=== PATIENT | male | born 1960 | race American Indian/Alaskan Native ===

== ENCOUNTER 2016-08-16 14:00 | Inpatient (IN) | payer OTHER ==
[2016-08-16] MEDS ORDERED: ASPIRIN ONE (16:15)
[2016-08-16] MEDS ORDERED: NACL 0.9% 500 ML 500 ML ONE (16:15)
[2016-08-16] MEDS ORDERED: BABY ASPIRIN ONE (16:16)
[2016-08-16] MEDS ORDERED: HEPARIN 10,000 UNITS/10 ML ONE ×2 (16:18→16:22)
[2016-08-16] MEDS ORDERED: ANGIOMAX IV ONE (16:18)
[2016-08-16] MEDS ORDERED: XYLOCAINE 2% INFILTRATI ONE (16:18)
[2016-08-16] MEDS ORDERED: VERSED ONE (16:18)
[2016-08-16] MEDS ORDERED: WATER FOR INJ (PF) 0 ML ONE (16:18)
[2016-08-16] MEDS ORDERED: SUBLIMAZE ONE (16:18)
[2016-08-16] MEDS ORDERED: NITROGLYCERIN SYRINGE 3 ML ONE (16:19)
[2016-08-16] MEDS ORDERED: CALAN ONE (16:19)
[2016-08-16] MEDS ORDERED: NACL 0.9% 100 ML ONE (16:20)
[2016-08-16] MEDS ORDERED: BABY ASPIRIN PO ONE (16:20)
[2016-08-16] MEDS: HEPARIN/NS 5000 UNIT/500ML(CATH LAB) 1,000 ML IR ONE ×2 (16:20→16:45)
--- NOTE | 2016-08-16 16:26 | Emergency Department Report ---
HPI - General Chief Complaint: Altered Mental Status Time Seen by Provider: 08/16/16 16:13 - HPI HPI: 55-year-old Afro-[place]ian male presents to the emergency Department through triage with complaint of altered mental status. One of the people that brought him into the hospital says that she has a roommate and/or lives in the same house that he lives in. She says that the patient has a history of alcohol abuse and drinks every day in between going to and from work. She also says that he had one history of collapsing about 1 month ago. The patient has some paperwork showing that he has seen some hard cardiology, Dr. Flor, and his primary care doctor is Dr. Akers. He has a history of hypertension listed. Patient currently is a poor historian and AAO 1. ED Past Medical Hx - Past Medical History Previous Medical History?: Yes Hx Hypertension: Yes Additional medical history: asthenia, SOB - Surgical History Additional Surgical History: unknown - Social History Smoking Status: Unknown if ever smoked Substance Use Type: Other ED Review of Systems ROS: Stated complaint: BODY PAIN/SHAKING Other details as noted in HPI Comment: Unobtainable due to pts medical conditions Physical Exam - Physical Exam Vital Signs: Vital Signs 08/16/16 16:01 Temperature 98.8 F Pulse Rate 133 H Respiratory 24 Rate Blood Pressure 117/83 O2 Sat by Pulse 100 Oximetry Physical Exam: GENERAL: The patient is well-developed well-nourished. HEENT: Normocephalic. Atraumatic. Extraocular motions are intact. Patient has moist mucous membranes. Pupils equal reactive to light bilaterally. NECK: Supple. Trachea is midline. CHEST/LUNGS: Clear to auscultation. There is no respiratory distress noted. HEART/CARDIOVASCULAR: Regular. There is moderate tachycardia. There is no gallop rub or murmur. ABDOMEN: Abdomen is soft, nontender. Patient has normal bowel sounds. There is no abdominal distention. SKIN: Skin is warm and dry. NEURO: Patient is awake but confused. AAO times one to person, but not time or place. Patient answers some yes or no questions. Follows a few commands. Withdraws from painful stimuli. MUSCULOSKELETAL: There is no tenderness or deformity. There is no evidence of acute injury. ED Course Vital Signs 08/16/16 16:01 Temperature 98.8 F Pulse Rate 133 H Respiratory 24 Rate Blood Pressure 117/83 O2 Sat by Pulse 100 Oximetry - Consultations Consultation #1: I spoke with the salesperson art objects on-call for [facility], Dr. Montgomery, who is reviewing the EKG and says he will call back with further instructions or disposition and/or decision on cathodic protection technician intervention. 08/16/16 16:23 Consultation #2: Cardiology has decided to take the patient to the Furniture Assembly Supervisor for further evaluation and possible intervention. They request 5000 units of heparin IV 1. 08/16/16 16:30 ED Medical Decision Making - Lab Data Result diagrams: 08/16/16 16:26 08/16/16 16:26 - EKG Data -: EKG Interpreted by Me EKG shows normal: sinus rhythm, axis, intervals, QRS complexes (Q waves to the inferior leads), ST-T waves (ST elevation to the inferior and lateral leads, some ST depression to leads V1 and V2) Rate: tachycardia (135 bpm) - EKG Data When compared to previous EKG there are: previous EKG unavailable Interpretation: other (sinus tachycardia, ST elevation in inferior and lateral leads with some depressions to the septal leads concerning for ST elevation MN) - Medical Decision Making 55-year-old male presents to the emergency department with what appears to be altered mental status. EKG shows concern for inferior and lateral STEMI. Cardiology was contacted and was taken to the Furniture Assembly Supervisor for further evaluation. I have not yet read the full report but heard that the patient did not require a stent but did have a EF of less than 15%. Patient's labs did show some abnormalities with a sodium level of 122 and a first elevated troponin of 0.69. Patient will be admitted to the ICU by the hospitalist, Dr. Hagen. - Differential Diagnosis MN, PE, alcohol abuse, pneumonia Critical Care Time: Yes Critical care time in (mins) excluding proc time.: 15 Critical care attestation.: If time is entered above; I have spent that time in minutes in the direct care of this critically ill patient, excluding procedure time. Critical care time was spent on this patient during his initial evaluation, multiple re-evaluations , ordering and interpretation of EKG, discussion with cardiology, preparation for Furniture Assembly Supervisor. Critical Care Time: 15 mins ED Disposition Clinical Impression: Hyponatremia STEMI (ST elevation myocardial infarction) Qualifiers: Involved coronary artery: unspecified coronary artery Qualified Code(s): I21.3 - ST elevation (STEMI) myocardial infarction of unspecified site Altered mental status Qualifiers: Altered mental status type: unspecified Qualified Code(s): R41.82 - Altered mental status, unspecified Disposition: OP ADMITTED IP TO THIS HOSP Is pt being admited?: Yes Condition: Serious Time of Disposition: 16:30
[2016-08-16 16:36] LABS: Basophils % (Auto) 0.1 % (0.0-1.8); Hematocrit 24.7 % (35.5-45.6); Hemoglobin 8.3 gm/dl (11.8-15.2); Mean Corpuscular HGB Conc 34 % (32-34); Mean Corpuscular Hemoglobin 29 pg (28-32); Mean Corpuscular Volume 87 fl (84-94); Platelet Count 341 K/mm3 (140-440); Red Blood Count 2.84 M/mm3 (3.65-5.03); Red Cell Distribution Width 13.7 % (13.2-15.2); White Blood Count 8.3 K/mm3 (4.5-11.0)
--- NOTE | 2016-08-16 16:43 | Admit Criteria Form ---
Admission Criteria Documentation: MYOCARDIAL INFARCTION Clinical Indications for Admission to Inpatient Care (Place 'X' for any and all applicable criteria): Admission is indicated for 1 or more of the following (1)(2)(3)(4): [X ]I. Acute MA [ ]II. Contraindications and/or Inappropriate clinical situations for Observational Care in patients with Myocardial Infarction, when ANY ONE of the following is required: [ ]a) Patient with High risk of cardiac embolism (e.g, patients with previous cardiac embolism, LVEF < 40%, age >75 and patients with prosthetic valve) 18 [ ]b) Patient with Moderate risk including DM patient, CAD and patient aged 65-75 18 [ ]c) Patient with any change in cardiac biomarker especially troponin should be managed as high risk in an inpatient setting 19 [ ]d) Physician judgement irrespective of ECG and other diagnostic findings 20 [ ]III.General contraindications and/or Inappropriate clinical situations for Observational Care in patients with Myocardial Infarction, when ANY ONE of the following is required: [ ]a) Prediction of prolongation of LOS based on ANY ONE of the following may be considered as a contraindication for observational care 2, 3, 4, 5, 6, 7, 8, 9, 10, 11 [ ]i) Age > 65 yrs. [ ]ii) Patient arriving by ambulance [ ]iii) Patient with high acuity [ ]iv) Patient requiring vital sign monitoring [ ]v) Patient on IV medication [ ]b) Systolic blood pressures greater than or equal to 180mmHg 3,12 [ ]c) Patient with altered mental status including delirium and other alteration of consciousness, (3) [ ]d) Patient whose discharge disposition will be to a senior living home or rehabilitation home should not be managed in Emergency Department Observation Unit. CMS rule requires 3 days hospital stay before such placement. 3,13 [ ]e) Patient with failure to thrive due to broad array of etiologies 3 ,16,17 [ ]f) Inability to ambulate 3,14 Extended stay beyond goal length of stay may be needed for (1)(18)(20)(24)(25): [ ]a) Hemodynamic instability, persisting symptoms after intensive medical management, or recurring severe, prolonged symptoms [ ]b) Intravascular procedural complications such as acute vessel closure, stent thrombosis, stent malposition, or vessel dissection (26)(27)(28) [ ]c) Extravascular procedural complications such as retroperitoneal hematoma , pericardial effusion, or cardiac tamponade [ ]d) Entry site complications causing bleeding, hematoma or distal ischemia and requiring ongoing monitoring, surgical repair or surgical thrombectomy. Dangerous arrhythmia [ ]e) Complicated percutaneous coronary intervention (e.g., unsuccessful percutaneous coronary intervention or percutaneous coronary intervention of non- [place] vessel) [ ]f) Urgent or emergent surgery for complications of MA (e.g., ventricular rupture, valvular insufficiency) [ ]g) Surgical revascularization via coronary artery bypass graft [ ]h) Heart failure (e.g., pulmonary edema) [ ]i) Unstable pulmonary comorbidities, including COPD or pneumonia (31) [ ]j) Acute renal failure The original [employer] content created by [employer] has been revised. The portions of the content which have been revised are identified through the use of italic text or in bold, and [employer] has neither reviewed nor approved the modified material. All other unmodified content is copyright [facility] Please see references footnoted in the original [facility] edition 2016 Admission Criteria Met: Yes
[2016-08-16 16:47] LABS: INR 1.07 (0.87-1.13); Partial Thromboplastin Time 36.5 Sec. (24.2-36.6)
[2016-08-16 16:55] LABS: Anion Gap 20 mmol/L; Blood Urea Nitrogen 18 mg/dL (9-20); Calcium 7.7 mg/dL (8.4-10.2); Carbon Dioxide 19 mmol/L (22-30); Chloride 87.8 mmol/L (98-107); Glucose 126 mg/dL (75-100); Potassium 4.3 mmol/L (3.6-5.0); Sodium 122 mmol/L (137-145)
[2016-08-16] MEDS ORDERED: HEPARIN IV SCH (17:00)
[2016-08-16] MEDS ORDERED: NACL 0.9% 500 ML 500 ML IV SCH (17:00)
[2016-08-16] MEDS ORDERED: LASIX ONE (17:02)
--- NOTE | 2016-08-16 17:03 | Consultation ---
History of Present Illness Consult date: 08/16/16 Requesting physician: KELTON BATES Consult reason: other (STEMI) History of present illness: Patient is a 55, with a past medical history significant for hypertension and abnormal EKG (EKG done on 07/07/2016 at 2:05 PM reveals mild sinus tachycardia at a rate of 104 bpm, old inferior wall MT and prominent T waves in V2 and V3, borderline voltage criteria for LVH was seen). He has been seen in our office in the past by Dr. Stark. He presented to the ED through triage with complaint of altered mental status. Pt denies any chest pain. One of the people that brought him into the hospital says that she has a roommate and/or lives in the same house that he lives in. She says that the patient has a history of alcohol abuse and drinks every day in between going to and from work. She also says that he had one history of collapsing about 1 month ago. Patient currently is a poor historian and AAO 1. Admission EKG revealed ST elevations in inferior and aterior leads and code STEMI was activated, pt was taken to bean sprout laborer emergently. Past History Past Medical History: hyperlipidemia Social history: alcohol abuse Medications and Allergies Allergies Allergy/AdvReac Type Severity Reaction Status Date / Time Unable to Assess Allergy Unverified 08/16/16 16:10 Active Meds: Active Medications Heparin Sodium (Porcine) (Heparin) 5,000 unit IV ONCE RHONDA Last Admin: 08/16/16 16:28 Dose: 5,000 unit Review of Systems Cardiovascular: no chest pain, no orthopnea, no palpitations, no rapid/ irregular heart beat, no lightheadedness, no shortness of breath Musculoskeletal: muscle weakness, other (AMS) Physical Examination Vital Signs Temp Pulse Resp BP Pulse Ox 98.8 F 133 H 24 117/83 100 08/16/16 16:01 08/16/16 16:01 08/16/16 16:01 08/16/16 16:01 08/16/16 16:01 General appearance: other (AMS, lethargic ) HEENT: Positive: PERRL, Normocephaly, Mucus Membranes Moist Neck: Positive: neck supple, trachea midline Cardiac: Positive: Reg Rate and Rhythm, S1/S2 Lungs: Positive: Normal Exam, clear to auscultation, Normal Breath Sounds Neuro: Positive: Grossly Intact Abdomen: Positive: Unremarkable, Soft, Active Bowel Sounds. Negative: Tender Skin: Positive: Clear. Negative: Rash, Wound Musculoskeletal: No Fluid Collection, No Pain, Normal Range of Motion Extremities: Present: normal, upper extr. pulses, lower extr. pulses. Absent: edema Results 08/16/16 16:26 08/16/16 16:26 Coagulation 08/16/16 Range/Units 16:26 PT 13.8 (12.2-14.9) Sec. INR 1.07 (0.87-1.13) APTT 36.5 (24.2-36.6) Sec. CBC 08/16/16 Range/Units 16:26 WBC 8.3 (4.5-11.0) K/mm3 RBC 2.84 L (3.65-5.03) M/mm3 Hgb 8.3 L (11.8-15.2) gm/dl Hct 24.7 L (35.5-45.6) % Plt Count 341 (140-440) K/mm3 Lymph # 0.7 L (1.2-5.4) K/mm3 [place] # 0.6 (0.0-0.8) K/mm3 Eos # 0.0 (0.0-0.4) K/mm3 Baso # 0.0 (0.0-0.1) K/mm3 Comprehensive Metabolic Panel 08/16/16 Range/Units 16:26 Sodium 122 L (137-145) mmol/L Potassium 4.3 (3.6-5.0) mmol/L Chloride 87.8 L (98-107) mmol/L Carbon Dioxide 19 L (22-30) mmol/L BUN 18 (9-20) mg/dL Creatinine 1.2 (0.8-1.5) mg/dL Glucose 126 H (75-100) mg/dL Calcium 7.7 L (8.4-10.2) mg/dL - Imaging and Cardiology Echo: pending, report reviewed (08/04/2016: EF 30 - 35%) EKG: report reviewed, image reviewed EKG interpretations - Telemetry EKG Rhythm: Sinus Rhythm - EKG Sinus rhythms and dysrhythmias: sinus rhythm Myocardial infarction: anterior MT (acute or rec, lateral MT (acute or rece Assessment and Plan Assessment: AMS ACS ruled out - pt underwent coronary angiography which revealed patent coronaries, EF 15%. Elevated troponin - cont to trend. ? Takotsubo CMP HTN ETOH abuse / ? illicit drug use Plan: Give 1 dose IV lasix 40mg now. Repeat BMP in AM. Initiate low dose Coreg. Obtain echo. Repeat EKG in AM. Cont tele. Await toxicology. Await lipid panel. The patient has been seen in conjunction with Dr. Syed Montgomery who agrees with the assessment and plan of care.
[2016-08-16] MEDS ORDERED: ZOFRAN IV PRN (17:10)
[2016-08-16] MEDS ORDERED: DULCOLAX PR PRN (17:10)
[2016-08-16] MEDS ORDERED: MILK OF MAGNESIA PO PRN (17:10)
--- NOTE | 2016-08-16 17:10 | History and Physical Report ---
History of Present Illness Chief complaint: confusion History of present illness: 55 YO Male with HTN, ETOH abuse presents to ED for evaluation. Pt confused, and unable to provide history. Pt history taken from friends, and ED staff. Pt friends state that pt has not been acting like his normal self. Pt seen and evaluated in EF and found to have EKG changes in Inferior and lateral leads. Cardiology consulted, and patient taken to the hoisting laborer. Pt friends deny complaints of fever, chills, CP, Palpitations, NVD, recent ill contacts. Pt friends acknowledge that patient experienced a syncopal episode 1 month ago. Past History Past Medical History: hypertension Past Surgical History: Other (ankle) Social history: single, alcohol abuse Family history: hypertension Medications and Allergies Allergies Allergy/AdvReac Type Severity Reaction Status Date / Time Unable to Assess Allergy Unverified 08/16/16 16:10 Active Meds: Active Medications Carvedilol (Coreg) 3.125 mg PO BID RHONDA Heparin Sodium (Porcine) (Heparin) 5,000 unit IV ONCE RHONDA Last Admin: 08/16/16 16:28 Dose: 5,000 unit Sodium Chloride (Nacl 0.9% 500 Ml) 500 mls @ 50 mls/hr IV DIRECT RHONDA Stop: 08/17/16 02:59 Exam - Constitutional Vitals: Temp Pulse Resp BP Pulse Ox 98.8 F 133 H 24 117/83 100 08/16/16 16:01 08/16/16 16:01 08/16/16 16:01 08/16/16 16:01 08/16/16 16:01 General appearance: Present: no acute distress, well-nourished - EENT Eyes: Present: PERRL ENT: hearing intact, clear oral mucosa - Neck Neck: Present: supple, normal ROM - Respiratory Respiratory effort: normal Respiratory: bilateral: CTA - Cardiovascular Heart Sounds: Present: S1 & S2. Absent: rub, click - Extremities Extremities: pulses symmetrical, No edema Peripheral Pulses: within normal limits - Abdominal General gastrointestinal: Present: soft, non-tender, non-distended, normal bowel sounds Male genitourinary: Present: normal - Integumentary Integumentary: Present: clear, warm, dry - Musculoskeletal Musculoskeletal: gait normal, strength equal bilaterally - Psychiatric Psychiatric: appropriate mood/affect, intact judgment & insight - Neurologic Neurologic: CNII-XII intact, moves all extremities Results - Labs CBC & Chem 7: 08/16/16 16:26 08/16/16 16:26 Labs: Abnormal lab results 08/16/16 08/16/16 Range/Units 16:26 16:26 RBC 2.84 L (3.65-5.03) M/mm3 Hgb 8.3 L (11.8-15.2) gm/dl Hct 24.7 L (35.5-45.6) % Lymph % (Auto) 8.3 L (13.4-35.0) % [place] % (Auto) 7.8 H (0.0-7.3) % Lymph # 0.7 L (1.2-5.4) K/mm3 Seg Neutrophils % 83.8 H (40.0-70.0) % Sodium 122 L (137-145) mmol/L Chloride 87.8 L (98-107) mmol/L Carbon Dioxide 19 L (22-30) mmol/L Glucose 126 H (75-100) mg/dL Calcium 7.7 L (8.4-10.2) mg/dL Troponin T 0.695 H* (0.00-0.029) ng/mL Assessment and Plan - Patient Problems (1) STEMI (ST elevation myocardial infarction) Current Visit: Yes Status: Acute Qualifiers: Involved coronary artery: unspecified coronary artery Qualified Code(s): I21.3 - ST elevation (STEMI) myocardial infarction of unspecified site Plan to address problem: Cardiology Consulted, NSTEMI: Pt taken urgently to hoisting laborer, supportive care. The high probability of a clinically significant, sudden or life threatening deterioration of the [cardiac, pulmonary] system(s) required my full and direct attention, intervention and personal management. The aggregate critical care time was [60] minutes. This time is in addition to time spent performing reported procedures but includes the following: [x] Data Review and interpretation [x] Patient assessment and monitoring of vital signs [x] Documentation [x] Medication orders and management (2) Acute encephalopathy Current Visit: Yes Status: Acute Plan to address problem: suspect secondary to ETOH abuse: CIWA protocol, banana bag, supportive care, monitor uop q shift (3) HTN (hypertension) Current Visit: Yes Status: Acute Qualifiers: Hypertension type: H Plan to address problem: Monitor BP q shift (4) ETOH abuse Current Visit: Yes Status: Acute Plan to address problem: CIWA protocol, ativan prn, banana bag (5) DVT prophylaxis Current Visit: Yes Status: Acute
[2016-08-16 18:01] LABS: Cholesterol 130 mg/dL (50-199); HDL Cholesterol 12 mg/dL (40-59)
[2016-08-16 18:56] LABS: LDL Cholesterol,Direct 77 mg/dL (50-130); Triglycerides 184 mg/dL (2-149)
--- NOTE | 2016-08-16 21:22 | Cardiac Catherization Report ---
CARDIAC CATHETERIZATION REFERRING PHYSICIAN: ER physician. PRIMARY UMBRELLA FINISHER: . INDICATION FOR PROCEDURE: The patient is a pleasant 55-year-old -Dutch gentleman brought to the Emergency Room due to altered mental state. He is awake, alert, answers questions very simply, , altered. EKG was performed, which shows diffuse ST elevation, especially inferolaterally. STEMI protocol was initiated. The patient was brought to lab coordinator in an emergent fashion. PROCEDURE IN DETAIL: The patient was brought to the lab coordinator in an urgent fashion due to STEMI protocol, prepped and draped in sterile fashion. Pablo's test in right hand was normal. The patient has odd affect and is altered. A 2 mL of 2% lidocaine used to anesthetize the right wrist. A standard 6-Cameroonian hydrophilic sheath used to cannulate the right radial artery via modified Seldinger technique. All exchanges performed to exchange a J-tip guidewire. JL3.5 catheter used to engage the left main. No dampening or ventricularization. Cineangiography performed in all projections. JR4 catheter used to cross the aortic valve under fluoroscopic guidance. Left ventriculography performed in 30 CORONADO and 30 YAKUT projections via hand injections, catheter flushed. Manual pullback performed with continuous pressure monitoring. Catheter used to engage the right coronary. No dampening or ventricularization. Cineangiography performed in all projections. Next, catheter removed from the body of wire, sheath removed. Manual pressure used to achieve hemostasis. DATA: Aortic pressure is 100/70, LV pressure is 100, LVEDP of 23-25 mmHg. The patient remained in normal sinus rhythm throughout the procedure. CORONARY ANATOMY: This is a codominant system. Left main large vessel, no significant disease, bifurcates into left anterior descending and left circumflex. Left circumflex is a moderate sized vessel, courses AV groove, 25% proximal stenosis is identified, but no other significant disease, ISH 3 flow throughout. LAD is a moderate sized vessel, courses anterior intergroove, wraps around the apex. No significant disease in the LAD or diagonal system. Right coronary is a large vessel, courses AV groove, distally bifurcates in the posterior descending and posterolateral branches. No discrete stenosis noted. Changes to right dominant system is not codominant, right dominant. The LV reveals anterior anteroapical hypokinesis with apical ballooning, estimated ejection fraction of 10-15%. CONCLUSIONS: 1. No evidence of angiographically significant/obstructive coronary artery disease in this right dominant system, maximal narrowing of 25% in the proximal left circumflex, ISH 3 flow throughout the coronaries. 2. Severe LV dysfunction with anterior anteroapical and inferoapical dyskinesis with apical ballooning. 3. Elevated LVEDP, estimated ejection fraction of approximately 15%. These findings are consistent with likely prior cardiomyopathy. This is not consistent with atherothrombotic STEMI as EKG findings may have indicated. This may be more consistent with stress a cardiomyopathy or Takotsubo cardiomyopathy. We will diurese, start low dose carvedilol, need Neurology consultation due to altered mental state. Hospitalist to admit. We will watch the patient closely. We will check an echocardiogram. JOB# [id number] DAVID/SONAL
[2016-08-16 21:47] LABS: Anion Gap 22 mmol/L; BUN/Creatinine Ratio 16.36; Blood Urea Nitrogen 18 mg/dL (9-20); Calcium 7.7 mg/dL (8.4-10.2); Carbon Dioxide 18 mmol/L (22-30); Chloride 89.9 mmol/L (98-107); Glucose 108 mg/dL (75-100); Potassium 4.7 mmol/L (3.6-5.0); Sodium 125 mmol/L (137-145)
[2016-08-16] MEDS: 1: FOLVITE 1 MG, INFUVITE 10 ML, VITAMIN B-1 100 MG in NACL 0.9% 1000 ML 988.8 ML 2: NA IV SCH (22:13)
[2016-08-16 22:15] LABS: Urine Drugs of Abuse Note Disclamer
[2016-08-16] MEDS: COREG PO SCH (22:15)
[2016-08-17] MEDS: 1: FOLVITE 1 MG, INFUVITE 10 ML, VITAMIN B-1 100 MG in NACL 0.9% 1000 ML 988.8 ML 2: NA IV SCH ×2 (06:24→10:27)
[2016-08-17 06:30] LABS: Anion Gap 21 mmol/L; Blood Urea Nitrogen 21 mg/dL (9-20); Calcium 7.5 mg/dL (8.4-10.2); Carbon Dioxide 19 mmol/L (22-30); Chloride 92.5 mmol/L (98-107); Glucose 105 mg/dL (75-100); Potassium 4.2 mmol/L (3.6-5.0); Sodium 128 mmol/L (137-145)
[2016-08-17] MEDS: DUONEB 0.5 MG-3 MG/3 ML SOLN IH SCH ×4 (07:17→19:40)
--- NOTE | 2016-08-17 08:46 | Progress Note ---
Assessment and Plan Assessment and plan: Acute encephalopathy with altered mental status. May be secondary to alcohol withdrawal, No localizing signs. He is awake, alert,less confused. To get CT head. Start CIOR protocol. neurochecks. Alcohol withdrawal syndrome. Start CIWA protocol. Ativan iv prn. he says he drinks 6 pack beer every other day, last drink [address] elevation on EKG. He was taken to cardiac laborer heading, but had normal coronaries , likely Takotsubo cardiomyopathy. Takotsubo cardiomyopathy. managed by cardiology. Hyponatremia. Improving, however sodium still low 128. Consult nephrology Hypotension. Start iv fluid. Full code status History Interval history: patient was confused, feels better, less confused, no chest pain Hospitalist Physical - Physical exam Narrative exam: Gen: Not in acute distress HEENT: Atraumatic, Normocephalic Neck: supple, no JVD Lungs: Clear to auscultation bilaterally, no crackles, no wheeze Heart S1-S2 regular, no murmurs rubs or gallop, Abdomen: soft, non tender,non-distended, normal bowel sounds Ext: No edema, cyanosis or clubbing Neuro: Awake, alert, oriented to person,place,time, mild confusion - Constitutional Vitals: Temp Pulse Resp BP Pulse Ox 101.2 F H 113 H 39 H 102/67 96 08/17/16 04:00 08/17/16 06:50 08/17/16 06:50 08/17/16 06:50 08/17/16 06:40 General appearance: Present: no acute distress, well-nourished Results - Labs CBC & Chem 7: 08/16/16 16:26 08/17/16 16:06 Labs: Laboratory Last Values WBC 8.3 K/mm3 (4.5-11.0) 08/16/16 16:26 RBC 2.84 M/mm3 (3.65-5.03) L 08/16/16 16:26 Hgb 8.3 gm/dl (11.8-15.2) L 08/16/16 16:26 Hct 24.7 % (35.5-45.6) L 08/16/16 16:26 MCV 87 fl (84-94) 08/16/16 16:26 MCH 29 pg (28-32) 08/16/16 16:26 MCHC 34 % (32-34) 08/16/16 16:26 RDW 13.7 % (13.2-15.2) 08/16/16 16:26 Plt Count 341 K/mm3 (140-440) 08/16/16 16:26 Lymph % (Auto) 8.3 % (13.4-35.0) L 08/16/16 16:26 [place]itt % (Auto) 7.8 % (0.0-7.3) H 08/16/16 16:26 Eos % (Auto) 0.0 % (0.0-4.3) 08/16/16 16:26 Baso % (Auto) 0.1 % (0.0-1.8) 08/16/16 16:26 Lymph # 0.7 K/mm3 (1.2-5.4) L 08/16/16 16:26 [place]itt # 0.6 K/mm3 (0.0-0.8) 08/16/16 16:26 Eos # 0.0 K/mm3 (0.0-0.4) 08/16/16 16:26 Baso # 0.0 K/mm3 (0.0-0.1) 08/16/16 16:26 Seg Neutrophils % 83.8 % (40.0-70.0) H 08/16/16 16:26 Seg Neutrophils # 7.0 K/mm3 (1.8-7.7) 08/16/16 16:26 PT 13.8 Sec. (12.2-14.9) 08/16/16 16:26 INR 1.07 (0.87-1.13) 08/16/16 16:26 APTT 36.5 Sec. (24.2-36.6) 08/16/16 16:26 Sodium 128 mmol/L (137-145) L 08/17/16 04:58 Potassium 4.2 mmol/L (3.6-5.0) 08/17/16 04:58 Chloride 92.5 mmol/L (98-107) L 08/17/16 04:58 Carbon Dioxide 19 mmol/L (22-30) L 08/17/16 04:58 Anion Gap 21 mmol/L 08/17/16 04:58 BUN 21 mg/dL (9-20) H 08/17/16 04:58 Creatinine 1.2 mg/dL (0.8-1.5) 08/17/16 04:58 Estimated GFR > 60 ml/min 08/17/16 04:58 BUN/Creatinine Ratio 17.50 % 08/17/16 04:58 Glucose 105 mg/dL (75-100) H 08/17/16 04:58 Calcium 7.5 mg/dL (8.4-10.2) L 08/17/16 04:58 Troponin T 0.703 ng/mL (0.00-0.029) H* 08/16/16 20:49 Triglycerides 184 mg/dL (2-149) H 08/16/16 16:26 Cholesterol 130 mg/dL (50-199) 08/16/16 16:26 LDL Cholesterol Direct 77 mg/dL (50-130) 08/16/16 16:26 HDL Cholesterol 12 mg/dL (40-59) L 08/16/16 16:26 Cholesterol/HDL Ratio 10.83 % 08/16/16 16:26 Urine Opiates Screen Presumptive negative 08/16/16 21:00 Urine Methadone Screen Presumptive negative 08/16/16 21:00 Ur Barbiturates Screen Presumptive negative 08/16/16 21:00 Ur Phencyclidine Scrn Presumptive negative 08/16/16 21:00 Ur Amphetamines Screen Presumptive negative 08/16/16 21:00 U Benzodiazepines Scrn Presumptive negative 08/16/16 21:00 Urine Cocaine Screen Presumptive negative 08/16/16 21:00 U Marijuana (THC) Screen Presumptive negative 08/16/16 21:00 Drugs of Abuse Note Disclamer 08/16/16 21:00
[2016-08-17] MEDS: COREG PO SCH ×2 (09:15→10:48)
[2016-08-17] MEDS ORDERED: COREG PO ONE (09:16)
[2016-08-17] MEDS ORDERED: COREG PO SCH (09:16)
[2016-08-17] MEDS ORDERED: LASIX IV ONE (09:16)
--- NOTE | 2016-08-17 09:17 | Progress Note ---
Assessment and Plan Assessment: AMS / encephalopathy - improving. ACS ruled out - pt underwent coronary angiography which revealed patent coronaries, EF 15%. Elevated troponin - cont to trend; suspect troponin leak is secondary to Takotsubo syndrome. ? Takotsubo CMP Sinus tachycardia ? syncopal episode 1 month ago HTN Hyponatremia - ? hypervolemic Anemia ETOH abuse - UDS negative; cessation encouraged; on banana bag per primary. Plan: Cont coreg at 3.125mg PO BID. Hold for MAP <60. Titrate up as tolerated. Hold off on IV diuresis at this time per nephrology. Repeat BMP in AM. Consider addition of ACEI/ARB if/when BPs permit and when okay with nephrology. Await echo. Cont tele. Consider neurology consultation. Assessment and plan reviewed with pt at bedside. The patient has been seen in conjunction with Dr. Syed Montgomery who agrees with the assessment and plan of care. Subjective Date of service: 08/17/16 Principal diagnosis: AMS; CMP Interval history: Pt resting in bed, appears more alert today than yesterday, in ST on tele with HR 110-120s, BPs stable. Pt denies any complaints and is requesting to go home. Objective Last Vital Signs Temp 99.8 F H 08/17/16 08:00 Pulse 118 H 08/17/16 09:15 Resp 39 H 08/17/16 06:50 BP 94/69 08/17/16 09:15 Pulse Ox 96 08/17/16 08:57 - Physical Examination HEENT: Positive: PERRL, Normocephaly, Mucus Membranes Moist Neck: Positive: neck supple, trachea midline Cardiac: Positive: S1/S2, Tachycardia Lungs: Positive: clear to auscultation Neuro: Positive: Grossly Intact, Cranial Nerve 2-12 Intact Abdomen: Positive: Unremarkable, Soft, Active Bowel Sounds. Negative: Tender Skin: Positive: Clear. Negative: Rash, Wound Musculoskeletal: No Fluid Collection, No Pain, Normal Range of Motion Extremities: Present: normal, upper extr. pulses, lower extr. pulses, edema ( trace BLE edema ) - Labs and Meds Coagulation 08/16/16 Range/Units 16:26 PT 13.8 (12.2-14.9) Sec. INR 1.07 (0.87-1.13) APTT 36.5 (24.2-36.6) Sec. Lipids 08/16/16 Range/Units 16:26 Triglycerides 184 H (2-149) mg/dL Cholesterol 130 (50-199) mg/dL HDL Cholesterol 12 L (40-59) mg/dL Cholesterol/HDL Ratio 10.83 % CBC 08/16/16 Range/Units 16:26 WBC 8.3 (4.5-11.0) K/mm3 RBC 2.84 L (3.65-5.03) M/mm3 Hgb 8.3 L (11.8-15.2) gm/dl Hct 24.7 L (35.5-45.6) % Plt Count 341 (140-440) K/mm3 Lymph # 0.7 L (1.2-5.4) K/mm3 [place] # 0.6 (0.0-0.8) K/mm3 Eos # 0.0 (0.0-0.4) K/mm3 Baso # 0.0 (0.0-0.1) K/mm3 Comprehensive Metabolic Panel 08/16/16 08/16/16 08/17/16 Range/Units 16:26 20:50 04:58 Sodium 122 L 125 L 128 L (137-145) mmol/L Potassium 4.3 4.7 4.2 (3.6-5.0) mmol/L Chloride 87.8 L 89.9 L 92.5 L (98-107) mmol/L Carbon Dioxide 19 L 18 L 19 L (22-30) mmol/L BUN 18 18 21 H (9-20) mg/dL Creatinine 1.2 1.1 1.2 (0.8-1.5) mg/dL Glucose 126 H 108 H 105 H (75-100) mg/dL Calcium 7.7 L 7.7 L 7.5 L (8.4-10.2) mg/dL - Imaging and Cardiology EKG: report reviewed, image reviewed Echo: pending, report reviewed (08/04/2016: EF 30 - 35%) - Telemetry EKG Rhythm: Sinus Tachycardia - EKG Sinus rhythms and dysrhythmias: sinus rhythm Myocardial infarction: anterior [place] (acute or rec, lateral [place] (acute or rece
--- NOTE | 2016-08-17 09:18 | Consultation ---
History of Present Illness - Reason for Consult Consult date: 08/17/16 - History of Present Illness pt was seen and examined this morning. Discussed with milling operator. Consult dictated Past History Past Medical History: hypertension Past Surgical History: Other (ankle) Social history: single, alcohol abuse Family history: hypertension Medications and Allergies Allergies Allergy/AdvReac Type Severity Reaction Status Date / Time Unable to Assess Allergy Unverified 08/16/16 16:10 Active Meds: Active Medications Acetaminophen (Tylenol) 650 mg PO Q4H PRN PRN Reason: Pain MILD(1-3)/Fever >100.5/PYLE Albuterol/Ipratropium (Duoneb 0.5 Mg-3 Mg/3 Ml Soln) 1 ampul IH Q6HRT [facility] Last Admin: 08/17/16 08:56 Dose: Not Given Bisacodyl (Dulcolax) 10 mg NV QDAY PRN PRN Reason: Constipation unrelieved by MOM Carvedilol (Coreg) 3.125 mg PO ONCE ONE Stop: 08/17/16 09:17 Carvedilol (Coreg) 6.25 mg PO BID [facility] Furosemide (Lasix) 40 mg IV ONCE ONE Stop: 08/17/16 09:17 Folic Acid 1 mg/ Multivitamins /Minerals 10 ml/ Thiamine HCl 100 mg/ Sodium Chloride 1,000 mls @ 125 mls/hr IV .BY DURATION [facility] Last Admin: 08/16/16 22:13 Dose: 125 mls/hr Sodium Chloride (Nacl 0.9% 1000 Ml) 1,000 mls @ 125 mls/hr IV .BY DURATION [facility] Last Admin: 08/17/16 06:24 Dose: 125 mls/hr Lorazepam (Ativan) 1 mg IV Q3HR PRN PRN Reason: CIWA-Ar 8-15 Magnesium Hydroxide (Milk Of Magnesia) 30 ml PO Q4H PRN PRN Reason: Constipation Ondansetron HCl (Zofran) 4 mg IV Q8H PRN PRN Reason: N/V unrelieved by Reglan Exam - Constitutional Vitals: Temp Pulse Resp BP Pulse Ox 99.8 F H 118 H 39 H 94/69 96 08/17/16 08:00 08/17/16 09:15 08/17/16 06:50 08/17/16 09:15 08/17/16 08:57 Results - Labs CBC & Chem 7: 08/16/16 16:26 08/17/16 16:06 Labs: Abnormal lab results 08/16/16 08/16/16 08/16/16 Range/Units 16:26 16:26 20:49 RBC 2.84 L (3.65-5.03) M/mm3 Hgb 8.3 L (11.8-15.2) gm/dl Hct 24.7 L (35.5-45.6) % Lymph % (Auto) 8.3 L (13.4-35.0) % [place] % (Auto) 7.8 H (0.0-7.3) % Lymph # 0.7 L (1.2-5.4) K/mm3 Seg Neutrophils % 83.8 H (40.0-70.0) % Sodium 122 L (137-145) mmol/L Chloride 87.8 L (98-107) mmol/L Carbon Dioxide 19 L (22-30) mmol/L BUN (9-20) mg/dL Glucose 126 H (75-100) mg/dL Calcium 7.7 L (8.4-10.2) mg/dL Troponin T 0.695 H* 0.703 H* (0.00-0.029) ng/mL Triglycerides 184 H (2-149) mg/dL HDL Cholesterol 12 L (40-59) mg/dL 08/16/16 08/17/16 Range/Units 20:50 04:58 RBC (3.65-5.03) M/mm3 Hgb (11.8-15.2) gm/dl Hct (35.5-45.6) % Lymph % (Auto) (13.4-35.0) % [place] % (Auto) (0.0-7.3) % Lymph # (1.2-5.4) K/mm3 Seg Neutrophils % (40.0-70.0) % Sodium 125 L 128 L (137-145) mmol/L Chloride 89.9 L 92.5 L (98-107) mmol/L Carbon Dioxide 18 L 19 L (22-30) mmol/L BUN 21 H (9-20) mg/dL Glucose 108 H 105 H (75-100) mg/dL Calcium 7.7 L 7.5 L (8.4-10.2) mg/dL Troponin T (0.00-0.029) ng/mL Triglycerides (2-149) mg/dL HDL Cholesterol (40-59) mg/dL
[2016-08-17 09:41] LABS: Creatine Kinase MB 6.9 ng/mL (0.0-4.0)
[2016-08-17 12:47] LABS: Bilirubin,Urine NEG (Negative); Blood,Urine NEG (Negative); Ketones,Urine NEG (Negative); Leukocyte Esterase,Urine NEG (Negative); Nitrite,Urine NEG (Negative)
[2016-08-17] MEDS ORDERED: ATROVENT IH ONE ×2 (14:19)
[2016-08-17] MEDS ORDERED: ATIVAN IV PRN ×2 (14:20)
[2016-08-17] MEDS ORDERED: HALDOL IV PRN (14:20)
[2016-08-17 16:44] LABS: BUN/Creatinine Ratio 18.66; Calcium 7.4 mg/dL (8.4-10.2); Chloride 91.9 mmol/L (98-107); Potassium 4.8 mmol/L (3.6-5.0)
[2016-08-17] MEDS: NACL 0.9% 1000 ML 1,000 ML IV SCH (17:29)
[2016-08-18] MEDS: DUONEB 0.5 MG-3 MG/3 ML SOLN IH SCH ×4 (01:47→20:31)
[2016-08-18] MEDS: NACL 0.9% 1000 ML 1,000 ML IV SCH (02:22)
[2016-08-18 05:15] LABS: BUN/Creatinine Ratio 25.29; Calcium 7.4 mg/dL (8.4-10.2); Chloride 96.5 mmol/L (98-107); Potassium 4.9 mmol/L (3.6-5.0)
[2016-08-18] MEDS: COREG PO SCH ×3 (07:28→21:23)
[2016-08-18] MEDS: FOLVITE PO SCH (09:32)
[2016-08-18] MEDS: VITAMIN B-1 PO SCH (09:32)
[2016-08-18] MEDS: THERAGRAN Tab PO SCH (09:32)
[2016-08-18 09:34] LABS: Albumin 1.9 g/dL (3.9-5); Albumin/Globulin Ratio 0.5 %; BUN/Creatinine Ratio 25.88; Bilirubin,Total 1.1 mg/dL (0.1-1.2); Calcium 7.3 mg/dL (8.4-10.2); Potassium 5.2 mmol/L (3.6-5.0); Total Protein 5.6 g/dL (6.3-8.2)
--- NOTE | 2016-08-18 09:38 | Progress Note ---
Assessment and Plan - Patient Problems (1) Hyponatremia Current Visit: Yes Status: Acute Plan to address problem: [id number] (2) ARF (acute renal failure) Current Visit: Yes Status: Acute Qualifiers: Acute renal failure type: A Plan to address problem: may be prerenal, S/P contrast exposure for cardiac cath-monitor for contrast nephropathy. Adjust meds per renal function. (3) Altered mental status Current Visit: Yes Status: Acute Qualifiers: Altered mental status type: unspecified Coma depth: C Coma timing: C Qualified Code(s): R41.82 - Altered mental status, unspecified (4) Metabolic acidosis Current Visit: Yes Status: Acute Plan to address problem: maintain on bicarb supplements (5) ETOH abuse Current Visit: Yes Status: Acute (6) HTN (hypertension) Current Visit: Yes Status: Acute Qualifiers: Hypertension type: H (7) Hypoalbuminemia Current Visit: Yes Status: Acute (8) Cardiomyopathy Current Visit: Yes Status: Acute Plan to address problem: LVEF-15% (9) Anemia Current Visit: Yes Status: Acute Qualifiers: Anemia type: A Iron deficiency anemia type: I Vitamin B12 deficiency anemia type: V Folate deficiency anemia type: F Bone marrow failure anemia type: B Hemolytic anemia type: H Other causes of anemia: O Subjective Date of service: 08/18/16 Principal diagnosis: AMS; CMP Interval history: pt is more alert today, not in acute distress Objective - Vital Signs Vital signs: Vital Signs - 12hr 08/17/16 08/17/16 08/17/16 21:40 21:50 22:00 Temperature Pulse Rate 96 H 96 H 97 H Pulse Rate [ Anterior Bilateral Throughout] Pulse Rate [ From Monitor] Respiratory 38 H 41 H 44 H Rate Respiratory Rate [Anterior Bilateral Throughout] Blood Pressure 88/59 88/59 83/58 O2 Sat by Pulse 100 100 100 Oximetry 08/17/16 08/17/16 08/17/16 22:10 22:20 22:22 Temperature Pulse Rate 96 H 100 H 100 H Pulse Rate [ Anterior Bilateral Throughout] Pulse Rate [ From Monitor] Respiratory 41 H 43 H 43 H Rate Respiratory Rate [Anterior Bilateral Throughout] Blood Pressure 83/58 83/59 83/59 O2 Sat by Pulse 100 100 100 Oximetry 08/17/16 08/17/16 08/17/16 22:30 22:40 22:50 Temperature Pulse Rate 97 H 94 H 94 H Pulse Rate [ Anterior Bilateral Throughout] Pulse Rate [ From Monitor] Respiratory 44 H 40 H 36 H Rate Respiratory Rate [Anterior Bilateral Throughout] Blood Pressure 88/61 88/61 84/57 O2 Sat by Pulse 100 100 100 Oximetry 08/17/16 08/17/16 08/17/16 23:00 23:10 23:20 Temperature Pulse Rate 96 H 96 H 96 H Pulse Rate [ Anterior Bilateral Throughout] Pulse Rate [ From Monitor] Respiratory 43 H 43 H 42 H Rate Respiratory Rate [Anterior Bilateral Throughout] Blood Pressure 92/60 92/60 92/60 O2 Sat by Pulse 100 100 100 Oximetry 08/17/16 08/17/16 08/17/16 23:30 23:40 23:50 Temperature Pulse Rate 96 H 98 H 96 H Pulse Rate [ Anterior Bilateral Throughout] Pulse Rate [ From Monitor] Respiratory 42 H 42 H 43 H Rate Respiratory Rate [Anterior Bilateral Throughout] Blood Pressure 85/61 85/61 85/61 O2 Sat by Pulse 100 100 100 Oximetry 08/18/16 08/18/16 08/18/16 00:00 00:10 00:20 Temperature 98.8 F Pulse Rate 95 H 93 H 96 H Pulse Rate [ Anterior Bilateral Throughout] Pulse Rate [ From Monitor] Respiratory 39 H 39 H 43 H Rate Respiratory Rate [Anterior Bilateral Throughout] Blood Pressure 96/68 96/68 86/63 O2 Sat by Pulse 100 100 100 Oximetry 08/18/16 08/18/16 08/18/16 00:30 00:40 00:50 Temperature Pulse Rate 96 H 95 H 91 H Pulse Rate [ Anterior Bilateral Throughout] Pulse Rate [ From Monitor] Respiratory 39 H 40 H 33 H Rate Respiratory Rate [Anterior Bilateral Throughout] Blood Pressure 89/65 89/65 87/63 O2 Sat by Pulse 100 100 100 Oximetry 08/18/16 08/18/16 08/18/16 01:00 01:10 01:20 Temperature Pulse Rate 92 H 92 H 95 H Pulse Rate [ Anterior Bilateral Throughout] Pulse Rate [ From Monitor] Respiratory 37 H 37 H 37 H Rate Respiratory Rate [Anterior Bilateral Throughout] Blood Pressure 86/59 86/59 89/65 O2 Sat by Pulse 100 100 100 Oximetry 08/18/16 08/18/16 08/18/16 01:30 01:40 01:50 Temperature Pulse Rate 94 H 93 H 94 H Pulse Rate [ Anterior Bilateral Throughout] Pulse Rate [ From Monitor] Respiratory 36 H 36 H 38 H Rate Respiratory Rate [Anterior Bilateral Throughout] Blood Pressure 89/66 89/66 92/65 O2 Sat by Pulse 100 100 100 Oximetry 08/18/16 08/18/16 08/18/16 02:00 02:10 02:20 Temperature Pulse Rate 93 H 94 H 93 H Pulse Rate [ Anterior Bilateral Throughout] Pulse Rate [ From Monitor] Respiratory 35 H 35 H 25 H Rate Respiratory Rate [Anterior Bilateral Throughout] Blood Pressure 97/67 97/67 96/71 O2 Sat by Pulse 100 100 100 Oximetry 08/18/16 08/18/16 08/18/16 02:30 02:40 02:50 Temperature Pulse Rate 93 H 93 H 91 H Pulse Rate [ Anterior Bilateral Throughout] Pulse Rate [ From Monitor] Respiratory 34 H 38 H 37 H Rate Respiratory Rate [Anterior Bilateral Throughout] Blood Pressure 89/64 89/64 86/64 O2 Sat by Pulse 100 100 100 Oximetry 08/18/16 08/18/16 08/18/16 03:00 03:10 03:20 Temperature Pulse Rate 95 H 93 H 96 H Pulse Rate [ Anterior Bilateral Throughout] Pulse Rate [ From Monitor] Respiratory 37 H 39 H 40 H Rate Respiratory Rate [Anterior Bilateral Throughout] Blood Pressure 91/63 91/63 93/67 O2 Sat by Pulse 99 99 99 Oximetry 08/18/16 08/18/16 08/18/16 03:30 03:40 03:50 Temperature Pulse Rate 94 H 94 H 93 H Pulse Rate [ Anterior Bilateral Throughout] Pulse Rate [ From Monitor] Respiratory 38 H 38 H 38 H Rate Respiratory Rate [Anterior Bilateral Throughout] Blood Pressure 95/69 95/69 95/70 O2 Sat by Pulse 100 100 100 Oximetry 08/18/16 08/18/16 08/18/16 04:00 04:10 04:20 Temperature 98.9 F Pulse Rate 95 H 100 H 96 H Pulse Rate [ Anterior Bilateral Throughout] Pulse Rate [ From Monitor] Respiratory 38 H 40 H 39 H Rate Respiratory Rate [Anterior Bilateral Throughout] Blood Pressure 97/71 97/71 98/74 O2 Sat by Pulse 100 92 100 Oximetry 08/18/16 08/18/16 08/18/16 04:30 04:40 04:50 Temperature Pulse Rate 96 H 91 H 93 H Pulse Rate [ Anterior Bilateral Throughout] Pulse Rate [ From Monitor] Respiratory 38 H 36 H 38 H Rate Respiratory Rate [Anterior Bilateral Throughout] Blood Pressure 94/70 94/70 95/67 O2 Sat by Pulse 100 100 100 Oximetry 08/18/16 08/18/16 08/18/16 05:00 05:10 05:20 Temperature Pulse Rate 93 H 97 H 97 H Pulse Rate [ Anterior Bilateral Throughout] Pulse Rate [ From Monitor] Respiratory 38 H 37 H 38 H Rate Respiratory Rate [Anterior Bilateral Throughout] Blood Pressure 89/63 89/63 98/71 O2 Sat by Pulse 100 100 100 Oximetry 08/18/16 08/18/16 08/18/16 05:30 05:40 05:50 Temperature Pulse Rate 94 H 100 H 95 H Pulse Rate [ Anterior Bilateral Throughout] Pulse Rate [ From Monitor] Respiratory 36 H 35 H 30 H Rate Respiratory Rate [Anterior Bilateral Throughout] Blood Pressure 98/74 98/74 103/70 O2 Sat by Pulse 100 100 100 Oximetry 08/18/16 08/18/16 08/18/16 06:00 06:10 06:20 Temperature Pulse Rate 96 H 96 H 97 H Pulse Rate [ Anterior Bilateral Throughout] Pulse Rate [ From Monitor] Respiratory 41 H 40 H 39 H Rate Respiratory Rate [Anterior Bilateral Throughout] Blood Pressure 95/71 95/71 102/65 O2 Sat by Pulse 100 100 100 Oximetry 08/18/16 08/18/16 08/18/16 06:30 06:40 06:50 Temperature Pulse Rate 99 H 96 H 102 H Pulse Rate [ Anterior Bilateral Throughout] Pulse Rate [ From Monitor] Respiratory 38 H 38 H 40 H Rate Respiratory Rate [Anterior Bilateral Throughout] Blood Pressure 94/70 94/70 97/67 O2 Sat by Pulse 100 100 100 Oximetry 08/18/16 08/18/16 08/18/16 07:00 07:10 07:20 Temperature Pulse Rate 97 H 103 H 100 H Pulse Rate [ Anterior Bilateral Throughout] Pulse Rate [ From Monitor] Respiratory 39 H 22 32 H Rate Respiratory Rate [Anterior Bilateral Throughout] Blood Pressure 91/65 91/65 97/68 O2 Sat by Pulse 100 100 99 Oximetry 08/18/16 08/18/16 08/18/16 07:28 07:30 07:40 Temperature Pulse Rate 98 H 100 H Pulse Rate [ 99 H Anterior Bilateral Throughout] Pulse Rate [ From Monitor] Respiratory 39 H 36 H Rate Respiratory 16 Rate [Anterior Bilateral Throughout] Blood Pressure 97/67 97/67 O2 Sat by Pulse 100 98 99 Oximetry 08/18/16 08/18/16 08/18/16 07:42 07:50 07:57 Temperature 98.0 F Pulse Rate 98 H Pulse Rate [ 90 Anterior Bilateral Throughout] Pulse Rate [ 96 H From Monitor] Respiratory 38 H 35 H Rate Respiratory 16 Rate [Anterior Bilateral Throughout] Blood Pressure 94/69 O2 Sat by Pulse 98 99 Oximetry 08/18/16 08/18/16 08:00 09:32 Temperature Pulse Rate 97 H 101 H Pulse Rate [ Anterior Bilateral Throughout] Pulse Rate [ From Monitor] Respiratory 39 H Rate Respiratory Rate [Anterior Bilateral Throughout] Blood Pressure 97/65 93/64 O2 Sat by Pulse 98 Oximetry - General Appearance General appearance: well-developed, chronically ill EENT: mucous membranes dry Neck: no JVD Respiratory: Present: Clear to Ascultation Cardiology: regular Gastrointestinal: normoactive bowel sounds Psychiatric: cooperative - Lab 08/16/16 16:26 08/18/16 15:42 Most recent lab results Calcium 7.3 mg/dL (8.4-10.2) L 08/18/16 08:33 Urine Creatinine 220.8 mg/dL (0.1-20.0) H 08/17/16 12:24 Urine Sodium 10 mEq/L 08/17/16 12:24
--- NOTE | 2016-08-18 11:12 | Cat Scan Report ---
CT scan of head without contrast: History: Altered mental status. Findings: Ventricles are normal in size and midline in location. No evidence of acute ischemia, hemorrhage or mass. No extra axial fluid collection. Normal brainstem and cerebellum There is complete opacification noted of the right maxillary sinus with irregularity of the medial wall. Expansion is noted of the right maxillary sinus. Impression: No acute intracranial abnormality. Right maxillary sinus disease probably chronic/acute sinusitis, neoplasm cannot be excluded.
--- NOTE | 2016-08-18 11:45 | Progress Note ---
Assessment and Plan Assessment: AMS / encephalopathy - improving; head CT with no acute intracranial abnormality. Abnormal EKG / ACS ruled out - pt underwent coronary angiography which revealed patent coronaries, EF 15%. Elevated troponin - cont to trend; suspect troponin leak is secondary to Takotsubo syndrome. 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 Sinus tachycardia ? syncopal episode 1 month ago HTN Hyponatremia - improving. ARF - renal indices trending upwards; on IVF per nephrology. Anemia ETOH abuse / ETOH withdrawal - UDS negative; cessation encouraged; on banana bag per primary. Plan: Echo reviewed - 08/16/2016: severe global hypokinesis, EF 15-20%, mild LHV, mild to moderate MR, moderate TR, minimal pericardial effusion, thrombus in the LV. Initiate heparin gtt with initial bolus x 1 dose and PO coumadin. Cont heparin gtt until therapeutic INR of 2-3 is achieved. Cont coreg at 3.125mg PO BID. Hold for MAP <60. Titrate up as tolerated. Hold off on IV diuresis at this time per nephrology. Repeat BMP in AM. Recommend cautious use of IVF as pt has narrow fluid equilibrium in setting of severe CMP. Consider addition of ACEI/ARB if/when BPs permit and when okay with nephrology. Cont tele. Assessment and plan reviewed with pt at bedside. The patient has been seen in conjunction with Dr. Syed Montgomery who agrees with the assessment and plan of care. Subjective Date of service: 08/18/16 Principal diagnosis: AMS; CMP Interval history: Pt resting in bed, in ST on tele with HR improved in 100s, BPs low normal but stable. Pt denies any complaints and is requesting to go home. Objective Last Vital Signs Temp 98.0 F 08/18/16 07:50 Pulse 100 H 08/18/16 11:10 Resp 40 H 08/18/16 11:10 BP 97/67 08/18/16 11:10 Pulse Ox 99 08/18/16 11:10 - Physical Examination General: No Apparent Distress HEENT: Positive: PERRL, Normocephaly, Mucus Membranes Moist Neck: Positive: neck supple, trachea midline Cardiac: Positive: Reg Rate and Rhythm, S1/S2 Lungs: Positive: Normal Exam, clear to auscultation, Normal Breath Sounds Neuro: Positive: Grossly Intact, Cranial Nerve 2-12 Intact Abdomen: Positive: Unremarkable, Soft, Active Bowel Sounds. Negative: Tender Skin: Positive: Clear. Negative: Rash, Wound Musculoskeletal: No Fluid Collection, No Pain, Normal Range of Motion Extremities: Present: normal, upper extr. pulses, lower extr. pulses, edema ( trace BLE edema ) - Labs and Meds Cardiac Enzymes 08/18/16 Range/Units 08:33 AST 152 H (5-40) units/L Comprehensive Metabolic Panel 08/17/16 08/18/16 08/18/16 Range/Units 16:06 04:12 08:33 Sodium 127 L 129 L 128 L (137-145) mmol/L Potassium 4.8 4.9 5.2 H (3.6-5.0) mmol/L Chloride 91.9 L 96.5 L 96.0 L (98-107) mmol/L Carbon Dioxide 16 L 15 L 16 L (22-30) mmol/L BUN 28 H 43 H 44 H (9-20) mg/dL Creatinine 1.5 1.7 H 1.7 H (0.8-1.5) mg/dL Glucose 97 115 H 109 H (75-100) mg/dL Calcium 7.4 L 7.4 L 7.3 L (8.4-10.2) mg/dL AST 152 H (5-40) units/L ALT 38 (7-56) units/L Alkaline Phosphatase 175 H (35-129) units/L Total Protein 5.6 L (6.3-8.2) g/dL Albumin 1.9 L (3.9-5) g/dL - Imaging and Cardiology EKG: report reviewed, image reviewed Echo: report reviewed (08/16/2016: severe global hypokinesis, EF 15-20%, mild LHV , mild to moderate MR, moderate TR, minimal pericardial effusion, thrombus in the LV) - Telemetry EKG Rhythm: Sinus Tachycardia - EKG Sinus rhythms and dysrhythmias: sinus rhythm Myocardial infarction: anterior NV (acute or rec, lateral NV (acute or rece
[2016-08-18] MEDS ORDERED: FLUARIX QUAD 2016-2017(36 MOS+) IM ONE (12:00)
[2016-08-18] MEDS: HEPARIN/ 0.45% NACL-25,000 UNIT/500 ML 25,000 UNITS/500 ML BAG IV SCH (12:49)
--- NOTE | 2016-08-18 12:56 | Consultation ---
REASON FOR CONSULTATION: Hyponatremia and acute renal failure. HISTORY OF PRESENT ILLNESS: This 55-year-old male was brought to the Emergency Room for altered mental status. Unable to obtain much information from the patient at present time, very poor historian and confused. ER notes, H and P, and the cardiology consults notes reviewed. The patient has history of alcohol abuse. He is currently in ICU, being treated for alcohol withdrawal syndrome. Admission EKG was abnormal and the patient was taken to laboratory machinist emergently, was reported to have no significant blockage. Discussed with Cardiology service, nurse practitioner. PAST MEDICAL HISTORY: Hyperlipidemia. PERSONAL HISTORY: History of alcohol abuse. ALLERGIES: Not available. CURRENT MEDICATIONS: Carvedilol 3.125 mg b.i.d., folic acid 1 mg once a day, Haldol p.r.n., Ativan p.r.n., multivitamins once a day, thiamine 100 mg once a day. REVIEW OF SYSTEMS: Unable to obtain. PHYSICAL EXAMINATION: GENERAL: The patient is lethargic, not in acute distress, chronically ill looking. VITAL SIGNS: Blood pressure 94/69, pulse 118, temperature 99.8. HEENT: Conjunctivae pale. Oral mucosa, tongue and lips are dry. NECK: No JVD. No thyroid enlargement. LUNGS: Clear. HEART: S1, S2 regular. No pericardial rub. ABDOMEN: Soft, bowel sounds present, nontender. EXTREMITIES: No significant edema. LABORATORY DATA: Sodium 128, potassium 4.2, chloride 92.5, CO2 19, BUN 21, creatinine 1.2, glucose 105, calcium 7.5, troponin 0.590. ASSESSMENT AND PLAN: 1. Hypotonic hyponatremia. Check urine electrolytes and urine osmolality. The patient's serum sodium has come up to 128 from 125, monitor closely, avoid rapid correction. 2. Acute renal failure, most likely prerenal. Serum creatinine has gone up from 1.1-1.5, status post contrast exposure. Monitor for contrast nephropathy. 3. Encephalopathy. 4. Alcohol withdrawal syndrome. 5. Cardiomyopathy. 6. Hypotension. Pressure support. IV fluids as ordered. Adjust medications per renal function. Thank you for the consultation. JOB# [id number] K/NTS
[2016-08-18] MEDS ORDERED: HEPARIN 10,000 UNITS/10 ML IV ONE ×2 (13:00→22:25)
--- NOTE | 2016-08-18 13:02 | Progress Note ---
Assessment and Plan Assessment and plan: Acute encephalopathy with altered mental status. May be secondary to alcohol withdrawal, No localizing signs. He is awake, alert,less confused. CT head no stroke. maxillary sinus disease. Continue [facility] protocol. neurochecks. Alcohol withdrawal syndrome. Cont [facility] protocol. Ativan iv prn. He said he drinks 6 pack beer every other day, last drink [address] elevation on EKG. He was taken to cardiac geophysical laboratory director, but had normal coronaries , likely Takotsubo cardiomyopathy. Takotsubo cardiomyopathy. managed by cardiology. Hyponatremia. Improving, however sodium still low 128. Nephrology following. Hyperkalemia. Recheck in afternoon. If still elevated, will treat Hypotension. improved. d/c iv fluid because very low EF LV thrombus,pedunculated. Start Heparin drip Full code status History Interval history: patient was confused on admission, feels better, Less`confused no chest pain Hospitalist Physical - Physical exam Narrative exam: Gen: Not in acute distress HEENT: Atraumatic, Normocephalic Neck: supple, no JVD Lungs: Clear to auscultation bilaterally, no crackles, no wheeze Heart S1-S2 regular, no murmurs rubs or gallop, Abdomen: soft, non tender,non-distended, normal bowel sounds Ext: No edema, cyanosis or clubbing Neuro: Awake, alert, oriented to person,place,time, mild confusion - Constitutional Vitals: Temp Pulse Resp BP Pulse Ox 97.4 F L 99 H 15 91/69 100 08/18/16 12:00 08/18/16 12:20 08/18/16 12:20 08/18/16 12:20 08/18/16 12:20 General appearance: Present: no acute distress, well-nourished Results - Labs CBC & Chem 7: 08/16/16 16:26 08/18/16 08:33 Labs: Laboratory Last Values WBC 8.3 K/mm3 (4.5-11.0) 08/16/16 16:26 RBC 2.84 M/mm3 (3.65-5.03) L 08/16/16 16:26 Hgb 8.3 gm/dl (11.8-15.2) L 08/16/16 16:26 Hct 24.7 % (35.5-45.6) L 08/16/16 16:26 MCV 87 fl (84-94) 08/16/16 16:26 MCH 29 pg (28-32) 08/16/16 16:26 MCHC 34 % (32-34) 08/16/16 16:26 RDW 13.7 % (13.2-15.2) 08/16/16 16:26 Plt Count 341 K/mm3 (140-440) 08/16/16 16:26 Lymph % (Auto) 8.3 % (13.4-35.0) L 08/16/16 16:26 [place] % (Auto) 7.8 % (0.0-7.3) H 08/16/16 16:26 Eos % (Auto) 0.0 % (0.0-4.3) 08/16/16 16:26 Baso % (Auto) 0.1 % (0.0-1.8) 08/16/16 16:26 Lymph # 0.7 K/mm3 (1.2-5.4) L 08/16/16 16:26 [place] # 0.6 K/mm3 (0.0-0.8) 08/16/16 16:26 Eos # 0.0 K/mm3 (0.0-0.4) 08/16/16 16:26 Baso # 0.0 K/mm3 (0.0-0.1) 08/16/16 16:26 Seg Neutrophils % 83.8 % (40.0-70.0) H 08/16/16 16:26 Seg Neutrophils # 7.0 K/mm3 (1.8-7.7) 08/16/16 16:26 PT 13.8 Sec. (12.2-14.9) 08/16/16 16:26 INR 1.07 (0.87-1.13) 08/16/16 16:26 APTT 36.5 Sec. (24.2-36.6) 08/16/16 16:26 Sodium 128 mmol/L (137-145) L 08/18/16 08:33 Potassium 5.2 mmol/L (3.6-5.0) H 08/18/16 08:33 Chloride 96.0 mmol/L (98-107) L 08/18/16 08:33 Carbon Dioxide 16 mmol/L (22-30) L 08/18/16 08:33 Anion Gap 21 mmol/L 08/18/16 08:33 BUN 44 mg/dL (9-20) H 08/18/16 08:33 Creatinine 1.7 mg/dL (0.8-1.5) H 08/18/16 08:33 Estimated GFR 51 ml/min 08/18/16 08:33 BUN/Creatinine Ratio 25.88 % 08/18/16 08:33 Glucose 109 mg/dL (75-100) H 08/18/16 08:33 POC Glucose 125 (70-105) H 08/18/16 12:00 Calcium 7.3 mg/dL (8.4-10.2) L 08/18/16 08:33 Total Bilirubin 1.1 mg/dL (0.1-1.2) 08/18/16 08:33 AST 152 units/L (5-40) H 08/18/16 08:33 ALT 38 units/L (7-56) 08/18/16 08:33 Alkaline Phosphatase 175 units/L (35-129) H 08/18/16 08:33 Total Creatine Kinase 144 units/L (55-170) 08/17/16 08:42 CK-MB (CK-2) 6.9 ng/mL (0.0-4.0) H 08/17/16 08:42 CK-MB (CK-2) Rel Index 4.7 (0-4) H 08/17/16 08:42 Troponin T 0.590 ng/mL (0.00-0.029) H* 08/17/16 08:42 Total Protein 5.6 g/dL (6.3-8.2) L 08/18/16 08:33 Albumin 1.9 g/dL (3.9-5) L 08/18/16 08:33 Albumin/Globulin Ratio 0.5 % 08/18/16 08:33 Triglycerides 184 mg/dL (2-149) H 08/16/16 16:26 Cholesterol 130 mg/dL (50-199) 08/16/16 16:26 LDL Cholesterol Direct 77 mg/dL (50-130) 08/16/16 16:26 HDL Cholesterol 12 mg/dL (40-59) L 08/16/16 16:26 Cholesterol/HDL Ratio 10.83 % 08/16/16 16:26 Urine Color Mami (Yellow) 08/17/16 12:24 Urine Turbidity Clear (Clear) 08/17/16 12:24 Urine pH 5.0 (5.0-7.0) 08/17/16 12:24 Ur Specific [place] 1.034 (1.003-1.030) H 08/17/16 12:24 Urine Protein 100 mg/dl mg/dL (Negative) 08/17/16 12:24 Urine Glucose (UA) Neg mg/dL (Negative) 08/17/16 12:24 Urine Ketones Neg mg/dL (Negative) 08/17/16 12:24 Urine Blood Neg (Negative) 08/17/16 12:24 Urine Nitrite Neg (Negative) 08/17/16 12:24 Urine Bilirubin Neg (Negative) 08/17/16 12:24 Urine Urobilinogen 4.0 mg/dL (<2.0) 08/17/16 12:24 Ur Leukocyte Esterase Neg (Negative) 08/17/16 12:24 Urine Osmolality 552 Mosm/kg 08/17/16 12:24 Urine Creatinine 220.8 mg/dL (0.1-20.0) H 08/17/16 12:24 Urine Sodium 10 mEq/L 08/17/16 12:24 Urine Chloride 10.0 mEq/L (110-250) L 08/17/16 12:24 Urine Opiates Screen Presumptive negative 08/16/16 21:00 Urine Methadone Screen Presumptive negative 08/16/16 21:00 Ur Barbiturates Screen Presumptive negative 08/16/16 21:00 Ur Phencyclidine Scrn Presumptive negative 08/16/16 21:00 Ur Amphetamines Screen Presumptive negative 08/16/16 21:00 U Benzodiazepines Scrn Presumptive negative 08/16/16 21:00 Urine Cocaine Screen Presumptive negative 08/16/16 21:00 U Marijuana (THC) Screen Presumptive negative 08/16/16 21:00 Drugs of Abuse Note Disclamer 08/16/16 21:00
[2016-08-18 13:40] LABS: INR 1.32 (0.87-1.13)
[2016-08-18 13:55] LABS: Partial Thromboplastin Time 185.1 Sec. (24.2-36.6)
[2016-08-18 16:20] LABS: BUN/Creatinine Ratio 28.82; Calcium 7.3 mg/dL (8.4-10.2); Chloride 95.8 mmol/L (98-107); Potassium 4.9 mmol/L (3.6-5.0)
[2016-08-18] MEDS: COUMADIN PO SCH (16:50)
[2016-08-19] MEDS: DUONEB 0.5 MG-3 MG/3 ML SOLN IH SCH ×4 (02:01→20:11)
[2016-08-19 07:02] LABS: INR 1.08 (0.87-1.13)
[2016-08-19 07:16] LABS: BUN/Creatinine Ratio 32.66; Calcium 7.4 mg/dL (8.4-10.2); Chloride 95.9 mmol/L (98-107); Potassium 4.7 mmol/L (3.6-5.0)
--- NOTE | 2016-08-19 07:48 | Progress Note ---
Assessment and Plan Assessment: * Acute kidney injury * Nonischemic cardiomyopathy - EF 15% --LHC: nml coronaries, severe global hypokinesis * LV thrombus * Altered mental status * Hyponatremia - stable * Metabolic acidosis * Alcohol abuse Plan: * Renal function has improved * Diuresis per cardiology * Anticoagulation per cardiology * Optimization of cardiac function * Avoid potential nephrotoxins * Monitor lytes Subjective Date of service: 08/19/16 Principal diagnosis: AMS; CMP Interval history: Patient without complaint this am. Denies SOB. Objective - Vital Signs Vital signs: Vital Signs - 12hr 08/18/16 08/18/16 08/18/16 20:31 20:41 20:48 Temperature Pulse Rate Pulse Rate [ 98 H 99 H Anterior Bilateral Throughout] Pulse Rate [ Apical] Pulse Rate [ Left Dorsalis Pedis] Respiratory Rate Respiratory 20 20 Rate [Anterior Bilateral Throughout] Blood Pressure [Right Arm] O2 Sat by Pulse 96 Oximetry 08/18/16 08/18/16 08/19/16 21:04 22:09 01:09 Temperature 97.4 F L 98.1 F Pulse Rate 95 H Pulse Rate [ Anterior Bilateral Throughout] Pulse Rate [ 97 H 94 H Apical] Pulse Rate [ 18 L Left Dorsalis Pedis] Respiratory 18 18 Rate Respiratory Rate [Anterior Bilateral Throughout] Blood Pressure 94/70 80/61 [Right Arm] O2 Sat by Pulse 95 94 Oximetry 08/19/16 06:14 Temperature 98.9 F Pulse Rate Pulse Rate [ Anterior Bilateral Throughout] Pulse Rate [ 97 H Apical] Pulse Rate [ Left Dorsalis Pedis] Respiratory 18 Rate Respiratory Rate [Anterior Bilateral Throughout] Blood Pressure 88/65 [Right Arm] O2 Sat by Pulse 20 L Oximetry - General Appearance General appearance: chronically ill EENT: ATNC Respiratory: Present: Decreased Breath Sounds Cardiology: regular, S1S2 Gastrointestinal: normal, no tenderness, no distended Integumentary: no rash Musculoskeletal: other (no edema) Psychiatric: cooperative - Lab 08/16/16 16:26 08/19/16 06:20 Most recent lab results Calcium 7.4 mg/dL (8.4-10.2) L 08/19/16 06:20 Urine Creatinine 220.8 mg/dL (0.1-20.0) H 08/17/16 12:24 Urine Sodium 10 mEq/L 08/17/16 12:24
[2016-08-19] MEDS: HEPARIN/ 0.45% NACL-25,000 UNIT/500 ML 25,000 UNITS/500 ML BAG IV SCH (08:23)
--- NOTE | 2016-08-19 10:00 | XRay Report ---
Single view chest: History: Fever findings: Cardiomegaly. Trachea is midline. Mild pulmonary venous congestion with left pleural effusion. No consolidation or pneumothorax. Impression: Probable early CHF.
--- NOTE | 2016-08-19 10:20 | Progress Note ---
Assessment and Plan Assessment and plan: Acute encephalopathy with altered mental status. May be secondary to alcohol withdrawal, resolved. No localizing signs. He is awake, alert, CT head no stroke. maxillary sinus disease. Continue [facility] protocol. neurochecks. Acute respiratory failure due to pulmonary edema due to cardiomyopathy. Transfer to ICU, supplemental Oxygen, get ABG. Discussed with linoleum layer. Acute systolic heart failure. Start dobutamine drip. Lasix IV. Discussed with cardiology. Cardiogenic shock. Transfer to ICU, dobutamine drip. Alcohol withdrawal syndrome. Cont [facility] protocol. Ativan iv prn. He said he drinks 6 pack beer every other day, last drink few days ago. ST elevation on EKG. He was taken to cardiac director of cardiac cath lab, but had normal coronaries , likely Takotsubo cardiomyopathy. Takotsubo cardiomyopathy. managed by cardiology. Hyponatremia. Sodium still low, 128. Nephrology following. Hyperkalemia. Resolved. Hypotension. improved. d/c iv fluid because very low EF LV thrombus, pedunculated. Continue Heparin drip, Coumadin. Full code status History Interval history: patient was confused on admission, no more confusion, palptations, shortness of breath Hospitalist Physical - Physical exam Narrative exam: Gen: Not in acute distress HEENT: Atraumatic, Normocephalic Neck: supple, no JVD Lungs: Bilateral basal rales, no wheeze Heart S1-S2 regular, rapid, no murmurs rubs or gallop, Abdomen: soft, non tender,non-distended, normal bowel sounds Ext: No edema, cyanosis or clubbing Neuro: Awake, alert, oriented to person,place,time, non focal - Constitutional Vitals: Temp Pulse Resp BP Pulse Ox 98.9 F 107 H 44 H 103/69 20 L 08/19/16 06:14 08/19/16 10:05 08/19/16 10:05 08/19/16 10:05 08/19/16 06:14 General appearance: Present: no acute distress, well-nourished Results - Labs CBC & Chem 7: 08/16/16 16:26 08/19/16 06:20 Labs: Laboratory Last Values WBC 8.3 K/mm3 (4.5-11.0) 08/16/16 16:26 RBC 2.84 M/mm3 (3.65-5.03) L 08/16/16 16:26 Hgb 8.3 gm/dl (11.8-15.2) L 08/16/16 16:26 Hct 24.7 % (35.5-45.6) L 08/16/16 16:26 MCV 87 fl (84-94) 08/16/16 16:26 MCH 29 pg (28-32) 08/16/16 16:26 MCHC 34 % (32-34) 08/16/16 16:26 RDW 13.7 % (13.2-15.2) 08/16/16 16:26 Plt Count 341 K/mm3 (140-440) 08/16/16 16:26 Lymph % (Auto) 8.3 % (13.4-35.0) L 08/16/16 16:26 [place] % (Auto) 7.8 % (0.0-7.3) H 08/16/16 16:26 Eos % (Auto) 0.0 % (0.0-4.3) 08/16/16 16:26 Baso % (Auto) 0.1 % (0.0-1.8) 08/16/16 16:26 Lymph # 0.7 K/mm3 (1.2-5.4) L 08/16/16 16:26 [place] # 0.6 K/mm3 (0.0-0.8) 08/16/16 16:26 Eos # 0.0 K/mm3 (0.0-0.4) 08/16/16 16:26 Baso # 0.0 K/mm3 (0.0-0.1) 08/16/16 16:26 Seg Neutrophils % 83.8 % (40.0-70.0) H 08/16/16 16:26 Seg Neutrophils # 7.0 K/mm3 (1.8-7.7) 08/16/16 16:26 PT 13.9 Sec. (12.2-14.9) 08/19/16 06:20 INR 1.08 (0.87-1.13) 08/19/16 06:20 APTT 45.2 Sec. (24.2-36.6) H 08/18/16 15:42 Heparin Anti-Xa Level 0.12 U.I./ml (0.3-0.7) L 08/19/16 06:20 Sodium 128 mmol/L (137-145) L 08/19/16 06:20 Potassium 4.7 mmol/L (3.6-5.0) 08/19/16 06:20 Chloride 95.9 mmol/L (98-107) L 08/19/16 06:20 Carbon Dioxide 15 mmol/L (22-30) L 08/19/16 06:20 Anion Gap 22 mmol/L 08/19/16 06:20 BUN 49 mg/dL (9-20) H 08/19/16 06:20 Creatinine 1.5 mg/dL (0.8-1.5) 08/19/16 06:20 Estimated GFR 59 ml/min 08/19/16 06:20 BUN/Creatinine Ratio 32.66 % 08/19/16 06:20 Glucose 116 mg/dL (75-100) H 08/19/16 06:20 POC Glucose 108 (70-105) H 08/19/16 10:04 Calcium 7.4 mg/dL (8.4-10.2) L 08/19/16 06:20 Total Bilirubin 1.1 mg/dL (0.1-1.2) 08/18/16 08:33 AST 152 units/L (5-40) H 08/18/16 08:33 ALT 38 units/L (7-56) 08/18/16 08:33 Alkaline Phosphatase 175 units/L (35-129) H 08/18/16 08:33 Total Creatine Kinase 144 units/L (55-170) 08/17/16 08:42 CK-MB (CK-2) 6.9 ng/mL (0.0-4.0) H 08/17/16 08:42 CK-MB (CK-2) Rel Index 4.7 (0-4) H 08/17/16 08:42 Troponin T 0.590 ng/mL (0.00-0.029) H* 08/17/16 08:42 Total Protein 5.6 g/dL (6.3-8.2) L 08/18/16 08:33 Albumin 1.9 g/dL (3.9-5) L 08/18/16 08:33 Albumin/Globulin Ratio 0.5 % 08/18/16 08:33 Triglycerides 184 mg/dL (2-149) H 08/16/16 16:26 Cholesterol 130 mg/dL (50-199) 08/16/16 16:26 LDL Cholesterol Direct 77 mg/dL (50-130) 08/16/16 16:26 HDL Cholesterol 12 mg/dL (40-59) L 08/16/16 16: Cholesterol/HDL Ratio 10.83 % 08/16/16 16:26 Urine Color Mami (Yellow) 08/17/16 12:24 Urine Turbidity Clear (Clear) 08/17/16 12:24 Urine pH 5.0 (5.0-7.0) 08/17/16 12:24 Ur Specific [place] 1.034 (1.003-1.030) H 08/17/16 12:24 Urine Protein 100 mg/dl mg/dL (Negative) 08/17/16 12:24 Urine Glucose (UA) Neg mg/dL (Negative) 08/17/16 12:24 Urine Ketones Neg mg/dL (Negative) 08/17/16 12:24 Urine Blood Neg (Negative) 08/17/16 12:24 Urine Nitrite Neg (Negative) 08/17/16 12:24 Urine Bilirubin Neg (Negative) 08/17/16 12:24 Urine Urobilinogen 4.0 mg/dL (<2.0) 08/17/16 12:24 Ur Leukocyte Esterase Neg (Negative) 08/17/16 12:24 Urine Osmolality 552 Mosm/kg 08/17/16 12:24 Urine Creatinine 220.8 mg/dL (0.1-20.0) H 08/17/16 12:24 Urine Sodium 10 mEq/L 08/17/16 12:24 Urine Chloride 10.0 mEq/L (110-250) L 08/17/16 12:24 Urine Opiates Screen Presumptive negative 08/16/16 21:00 Urine Methadone Screen Presumptive negative 08/16/16 21:00 Ur Barbiturates Screen Presumptive negative 08/16/16 21:00 Ur Phencyclidine Scrn Presumptive negative 08/16/16 21:00 Ur Amphetamines Screen Presumptive negative 08/16/16 21:00 U Benzodiazepines Scrn Presumptive negative 08/16/16 21:00 Urine Cocaine Screen Presumptive negative 08/16/16 21:00 U Marijuana (THC) Screen Presumptive negative 08/16/16 21:00 Drugs of Abuse Note Disclamer 08/16/16 21:00
[2016-08-19] MEDS ORDERED: LASIX IV ONE ×2 (10:28→11:00)
[2016-08-19 10:30] LABS: ISTAT Base Excess -6; ISTAT HCO3 17.3; ISTAT PCO2 21.9 (35-45); ISTAT PH 7.507 (7.35-7.45); ISTAT PO2 85 (80-105); ISTAT SO2 98; ISTAT TCO2 18
[2016-08-19] MEDS: THERAGRAN Tab PO SCH (10:31)
[2016-08-19] MEDS: COUMADIN PO SCH (10:31)
[2016-08-19] MEDS: VITAMIN B-1 PO SCH (10:31)
[2016-08-19] MEDS: FOLVITE PO SCH (10:32)
[2016-08-19] MEDS: DOBUTREX DRIP 500MG/D5W 250ML 500 MG/250 ML BAG IV SCH (11:20)
--- NOTE | 2016-08-19 11:47 | Progress Note ---
Assessment and Plan Assessment: AMS / encephalopathy - head CT with no acute intracranial abnormality. Consider neurology consultation if AMS persists. Abnormal EKG / ACS ruled out - pt underwent coronary angiography on 08/16/2016 which revealed patent coronaries, EF 15%. Elevated troponins Takotsubo CMP Hypotension / Acute systolic HF / ? cardiogenic shock Cardiac thrombus - pendunculated LV thrombus; likely chronic; on heparin gtt with PO coumadin. Sinus tachycardia ? syncopal episode 1 month ago HTN Hyponatremia - improving. ARF - nephrology following. Anemia ETOH abuse / ETOH withdrawal - UDS negative; cessation encouraged; [facility]WA protocol. Plan: Tx to ICU. Initiate dobutamine gtt @ 5mcg/kg/min. Do not titrate. Cont heparin gtt and PO coumadin until therapeutic INR of 2-3 is achieved. Hold coreg at this time in setting of hypotension. No ACEI/ARB at this time in setting of ARF and hypotension. Gentle intermittent IV diuresis per primary. Cont tele and close observation. The patient has been seen in conjunction with Dr. OFELIA Montgomery who agrees with the assessment and plan of care. Subjective Date of service: 08/19/16 Principal diagnosis: AMS; CMP Interval history: Pt resting in bed, withdrawn, tachypnea noted, pt requiring venti-mask, pt appears to be more drowsy and less responsive today than yesterday. BPs hypotensive, mild ST on tele with HR 105. Extremities cool. Pt's roommate at bedside - states that pt is usually very "bright" individual. CXR reveals early HF, mild pulmonary edema. ABGs reveal respiratory alkalosis. Objective Last Vital Signs Temp 98.9 F 08/19/16 06:14 Pulse 107 H 08/19/16 10:05 Resp 44 H 08/19/16 10:05 BP 103/69 08/19/16 10:05 Pulse Ox 95 08/19/16 07:44 - Physical Examination General: Other (ill-appearing ) HEENT: Positive: PERRL, Normocephaly, Mucus Membranes Moist Neck: Positive: neck supple, trachea midline Cardiac: Positive: Regular Rhythm, S1/S2, Tachycardia Lungs: Positive: Decreased Breath Sounds, Oxygen. Negative: Rales, Wheezes, Rhonchi Neuro: Positive: Grossly Intact, Other (withdrawn, opens eyes to commands, follows commands appropriately. ) Abdomen: Positive: Unremarkable, Soft, Active Bowel Sounds. Negative: Tender Skin: Positive: Clear. Negative: Rash, Wound Musculoskeletal: No Fluid Collection, No Pain, Normal Range of Motion Extremities: Present: normal, upper extr. pulses, lower extr. pulses. Absent: edema - Labs and Meds Coagulation 08/18/16 08/18/16 08/19/16 Range/Units 13:18 15:42 06:20 PT 16.3 H 13.9 (12.2-14.9) Sec. INR 1.32 H 1.08 (0.87-1.13) APTT 185.1 H* 45.2 H (24.2-36.6) Sec. Comprehensive Metabolic Panel 08/18/16 08/19/16 Range/Units 15:42 06:20 Sodium 128 L 128 L (137-145) mmol/L Potassium 4.9 4.7 (3.6-5.0) mmol/L Chloride 95.8 L 95.9 L (98-107) mmol/L Carbon Dioxide 16 L 15 L (22-30) mmol/L BUN 49 H 49 H (9-20) mg/dL Creatinine 1.7 H 1.5 (0.8-1.5) mg/dL Glucose 137 H 116 H (75-100) mg/dL Calcium 7.3 L 7.4 L (8.4-10.2) mg/dL - Imaging and Cardiology EKG: report reviewed, image reviewed Echo: report reviewed (08/16/2016: severe global hypokinesis, EF 15-20%, mild LHV , mild to moderate MR, moderate TR, minimal pericardial effusion, thrombus in the LV) - Telemetry EKG Rhythm: Sinus Tachycardia - EKG Sinus rhythms and dysrhythmias: sinus rhythm Myocardial infarction: anterior RI (acute or rec, lateral RI (acute or rece
--- NOTE | 2016-08-19 12:33 | Consultation ---
History of Present Illness Consult date: 08/19/16 Requesting physician: RUEL OVALLE Reason for consult: other (difficulty breathing, volume overload, possible cardiogenic shock) History of present illness: 55 y/o male with recent stemi, status POST cath with PCI, admitted to ICU for 2 days, transferred out and readmitted this am with tachypnea. Had some renal failure and was thought to be dry so given IVF's. Patient also has EF of 15%. This am CXR shows pulmonary edema, mild and cardiomegaly. Given IV lasix x1 and then transferred to ICU for Dobutamine. Found to have an LV thrombus that cards thinks is old but starting on heparin. Remainder of the review is negative. Past History Past Medical History: acute AL, CAD, hypertension Past Surgical History: Other (ankle and left heart cath) Social history: single, alcohol abuse Family history: hypertension Medications and Allergies Allergies Allergy/AdvReac Type Severity Reaction Status Date / Time Unable to Assess Allergy Unverified 08/16/16 16:10 Home Medications Medication Instructions Recorded Confirmed Last Taken Type Aspirin [Adult Low Dose Aspirin EC] 81 mg PO DAILY 08/18/16 08/18/16 Unknown History Carvedilol [Carvedilol] 3.125 mg PO BID 08/18/16 08/18/16 Unknown History Lisinopril [Lisinopril] 10 mg PO DAILY 08/18/16 08/18/16 Unknown History Active Meds: Active Medications Acetaminophen (Tylenol) 650 mg PO Q4H PRN PRN Reason: Pain MILD(1-3)/Fever >100.5/PYLE Albuterol/Ipratropium (Duoneb 0.5 Mg-3 Mg/3 Ml Soln) 1 ampul IH Q6HRT [facility] Last Admin: 08/19/16 07:44 Dose: 1 ampul Bisacodyl (Dulcolax) 10 mg MO QDAY PRN PRN Reason: Constipation unrelieved by MOM Folic Acid (Folvite) 1 mg PO Q24HR [facility] Last Admin: 08/19/16 10:32 Dose: 1 mg Haloperidol Lactate (Haldol) 5 mg IV Q1HR PRN PRN Reason: Unrespon. to mult. doses BZD's Heparin Sodium/Sodium Chloride (Heparin/ 0.45% Nacl-25,000 Unit/500 Ml) 25,000 units in 500 mls @ 24 mls/hr IV TITR RHONDA; 1,200 UNITS/HR PRN Reason: Protocol Last Admin: 08/19/16 08:23 Dose: 1,600 units/hr, 32 mls/hr Dobutamine HCl/Dextrose (Dobutrex Drip 500mg/D5w 250ml) 500 mg in 250 mls @ 11.55 mls/hr IV DIRECT RHONDA; 5 MCG/KG/MIN PRN Reason: Protocol Last Admin: 08/19/16 11:20 Dose: 5 mcg/kg/min, 11.55 mls/hr Lorazepam (Ativan) 1 mg IV Q3HR PRN PRN Reason: CIWA-Ar 8-15 Lorazepam (Ativan) 2 mg IV Q1HR PRN PRN Reason: CIWA-Ar 8-15 Lorazepam (Ativan) 4 mg IV Q1HR PRN PRN Reason: CIWA-Ar 16-25 Magnesium Hydroxide (Milk Of Magnesia) 30 ml PO Q4H PRN PRN Reason: Constipation Multivitamins (Theragran Tab) 1 each PO DAILY [facility] Last Admin: 08/19/16 10:31 Dose: 1 each Ondansetron HCl (Zofran) 4 mg IV Q8H PRN PRN Reason: N/V unrelieved by Reglan Thiamine HCl (Vitamin B-1) 100 mg PO QDAY [facility] Last Admin: 08/19/16 10:31 Dose: 100 mg Warfarin Sodium (Coumadin) 5 mg PO DAILY RHONDA PRN Reason: Protocol Last Admin: 08/19/16 10:31 Dose: 5 mg Warfarin Sodium (Coumadin Pharmacy To Dose) 1 each PO PKCONSULT RHONDA PRN Reason: Protocol Review of Systems All systems: negative Physical Examination Vital signs: Vital Signs Temp Pulse Resp BP Pulse Ox 98.8 F 133 H 24 117/83 100 08/16/16 16:01 08/16/16 16:01 08/16/16 16:01 08/16/16 16:01 08/16/16 16:01 General appearance: other (mild distress, and tachypnic) Eyes: non-icteric ENT: oropharynx moist Neck: supple Ascultation: Bilateral: rales Percussion: Bilateral: not dull Cardiovascular: other (tachy) Gastrointestinal: normoactive bowel sounds Extremities: other (Left arm swollen and bilateral lower ext edema) Results - Laboratory Findings CBC and BMP: 08/16/16 16:26 08/19/16 06:20 ABG POC ABG pH 7.507 (7.35-7.45) H 08/19/16 10:19 POC ABG pCO2 21.9 (35-45) L 08/19/16 10:19 POC ABG pO2 85 (80-105) 08/19/16 10:19 POC ABG HCO3 17.3 08/19/16 10:19 POC ABG Total CO2 18 08/19/16 10:19 POC ABG O2 Sat 98 08/19/16 10:19 PT/INR, D-dimer PT 13.9 Sec. (12.2-14.9) 08/19/16 06:20 INR 1.08 (0.87-1.13) 08/19/16 06:20 Abnormal lab findings: Abnormal Labs 08/16/16 08/16/16 08/16/16 16:26 16:26 20:49 RBC 2.84 L Hgb 8.3 L Hct 24.7 L Lymph % (Auto) 8.3 L [place] % (Auto) 7.8 H Lymph # 0.7 L Seg Neutrophils % 83.8 H PT INR APTT Heparin Anti-Xa Level POC ABG pH POC ABG pCO2 Sodium 122 L Potassium Chloride 87.8 L Carbon Dioxide 19 L BUN Creatinine Glucose 126 H POC Glucose Calcium 7.7 L AST Alkaline Phosphatase CK-MB (CK-2) CK-MB (CK-2) Rel Index Troponin T 0.695 H* 0.703 H* Total Protein Albumin Triglycerides 184 H HDL Cholesterol 12 L Ur Specific [place] Urine Creatinine Urine Chloride 08/16/16 08/17/16 08/17/16 20:50 04:58 08:42 RBC Hgb Hct Lymph % (Auto) [place] % (Auto) Lymph # Seg Neutrophils % PT INR APTT Heparin Anti-Xa Level POC ABG pH POC ABG pCO2 Sodium 125 L 128 L Potassium Chloride 89.9 L 92.5 L Carbon Dioxide 18 L 19 L BUN 21 H Creatinine Glucose 108 H 105 H POC Glucose Calcium 7.7 L 7.5 L AST Alkaline Phosphatase CK-MB (CK-2) 6.9 H CK-MB (CK-2) Rel Index 4.7 H Troponin T 0.590 H* Total Protein Albumin Triglycerides HDL Cholesterol Ur Specific [place] Urine Creatinine Urine Chloride 08/17/16 08/17/16 08/17/16 12:24 12:24 16:06 RBC Hgb Hct Lymph % (Auto) [place] % (Auto) Lymph # Seg Neutrophils % PT INR APTT Heparin Anti-Xa Level POC ABG pH POC ABG pCO2 Sodium 127 L Potassium Chloride 91.9 L Carbon Dioxide 16 L BUN 28 H Creatinine Glucose POC Glucose Calcium 7.4 L AST Alkaline Phosphatase CK-MB (CK-2) CK-MB (CK-2) Rel Index Troponin T Total Protein Albumin Triglycerides HDL Cholesterol Ur Specific [place] 1.034 H Urine Creatinine 220.8 H Urine Chloride 10.0 L 08/17/16 08/18/16 08/18/16 23:50 04:12 05:29 RBC Hgb Hct Lymph % (Auto) [place] % (Auto) Lymph # Seg Neutrophils % PT INR APTT Heparin Anti-Xa Level POC ABG pH POC ABG pCO2 Sodium 129 L Potassium Chloride 96.5 L Carbon Dioxide 15 L BUN 43 H Creatinine 1.7 H Glucose 115 H POC Glucose 126 H 121 H Calcium 7.4 L AST Alkaline Phosphatase CK-MB (CK-2) CK-MB (CK-2) Rel Index Troponin T Total Protein Albumin Triglycerides HDL Cholesterol Ur Specific [place] Urine Creatinine Urine Chloride 08/18/16 08/18/16 08/18/16 08:33 12:00 13:18 RBC Hgb Hct Lymph % (Auto) [place] % (Auto) Lymph # Seg Neutrophils % PT 16.3 H INR 1.32 H APTT 185.1 H* Heparin Anti-Xa Level POC ABG pH POC ABG pCO2 Sodium 128 L Potassium 5.2 H Chloride 96.0 L Carbon Dioxide 16 L BUN 44 H Creatinine 1.7 H Glucose 109 H POC Glucose 125 H Calcium 7.3 L AST 152 H Alkaline Phosphatase 175 H CK-MB (CK-2) CK-MB (CK-2) Rel Index Troponin T Total Protein 5.6 L Albumin 1.9 L Triglycerides HDL Cholesterol Ur Specific [place] Urine Creatinine Urine Chloride 08/18/16 08/18/16 08/18/16 15:42 15:42 20:38 RBC Hgb Hct Lymph % (Auto) [place] % (Auto) Lymph # Seg Neutrophils % PT INR APTT 45.2 H Heparin Anti-Xa Level < 0.10 L POC ABG pH POC ABG pCO2 Sodium 128 L Potassium Chloride 95.8 L Carbon Dioxide 16 L BUN 49 H Creatinine 1.7 H Glucose 137 H POC Glucose Calcium 7.3 L AST Alkaline Phosphatase CK-MB (CK-2) CK-MB (CK-2) Rel Index Troponin T Total Protein Albumin Triglycerides HDL Cholesterol Ur Specific [place] Urine Creatinine Urine Chloride 08/19/16 08/19/16 08/19/16 06:20 06:20 10:04 RBC Hgb Hct Lymph % (Auto) [place] % (Auto) Lymph # Seg Neutrophils % PT INR APTT Heparin Anti-Xa Level 0.12 L POC ABG pH POC ABG pCO2 Sodium 128 L Potassium Chloride 95.9 L Carbon Dioxide 15 L BUN 49 H Creatinine Glucose 116 H POC Glucose 108 H Calcium 7.4 L AST Alkaline Phosphatase CK-MB (CK-2) CK-MB (CK-2) Rel Index Troponin T Total Protein Albumin Triglycerides HDL Cholesterol Ur Specific [place] Urine Creatinine Urine Chloride 08/19/16 08/19/16 10:19 11:33 RBC Hgb Hct Lymph % (Auto) [place] % (Auto) Lymph # Seg Neutrophils % PT INR APTT Heparin Anti-Xa Level POC ABG pH 7.507 H POC ABG pCO2 21.9 L Sodium Potassium Chloride Carbon Dioxide BUN Creatinine Glucose POC Glucose 135 H Calcium AST Alkaline Phosphatase CK-MB (CK-2) CK-MB (CK-2) Rel Index Troponin T Total Protein Albumin Triglycerides HDL Cholesterol Ur Specific [place] Urine Creatinine Urine Chloride - Diagnostic Findings Chest x-ray: image reviewed (Cardiomegaly with pulmonary vascular congestion) Assessment and Plan 55 y/o male with acute AL and systolic heart failure, now with acute respiratory failure, most likely secondary to volume overload but concern for cardiogenic shock 1. lasix given 2. continue dobutamine 3. Bipap continuous for now 4. repeat CXr in am 5. Follow up labs 6. Overall prognosis is guarded
[2016-08-19 17:23] LABS: Potassium TNR mmol/L (3.6-5.0); Sodium TNR mmol/L (137-145)
[2016-08-19 17:24] LABS: Carbon Dioxide TNR mmol/L (22-30); Chloride TNR mmol/L (98-107)
[2016-08-19 17:25] LABS: Anion Gap TNR mmol/L; BUN/Creatinine Ratio TNR; Blood Urea Nitrogen TNR mg/dL (9-20); Calcium TNR mg/dL (8.4-10.2); Glucose TNR mg/dL (75-100)
[2016-08-19] MEDS: ATIVAN IV PRN (18:11)
[2016-08-19 18:23] LABS: Anion Gap 19 mmol/L; BUN/Creatinine Ratio 33.63; Blood Urea Nitrogen 37 mg/dL (9-20); Carbon Dioxide 14 mmol/L (22-30); Chloride 89.6 mmol/L (98-107); Glucose 100 mg/dL (75-100); Potassium 3.8 mmol/L (3.6-5.0)
[2016-08-19 18:29] LABS: Sodium 120 mmol/L (137-145)
[2016-08-20] MEDS ORDERED: TYLENOL PR PRN (00:16)
[2016-08-20] MEDS: TYLENOL PO PRN ×2 (00:26→21:28)
[2016-08-20] MEDS: ATIVAN IV PRN ×2 (00:37→13:44)
[2016-08-20] MEDS ORDERED: HEPARIN 10,000 UNITS/10 ML IV ONE (02:27)
[2016-08-20] MEDS: DUONEB 0.5 MG-3 MG/3 ML SOLN IH SCH ×4 (02:54→20:28)
[2016-08-20] MEDS: HEPARIN/ 0.45% NACL-25,000 UNIT/500 ML 25,000 UNITS/500 ML BAG IV SCH ×2 (04:10→20:15)
[2016-08-20 05:39] LABS: Hematocrit 26.2 % (35.5-45.6); Hemoglobin 8.2 gm/dl (11.8-15.2); Mean Corpuscular HGB Conc 31 % (32-34); Mean Corpuscular Hemoglobin 28 pg (28-32); Mean Corpuscular Volume 90 fl (84-94); Platelet Count 266 K/mm3 (140-440); Red Blood Count 2.92 M/mm3 (3.65-5.03); Red Cell Distribution Width 14.5 % (13.2-15.2)
[2016-08-20 05:41] LABS: White Blood Count 22.7 K/mm3 (4.5-11.0)
[2016-08-20 05:53] LABS: INR 1.2 (0.87-1.13)
[2016-08-20 06:01] LABS: Anion Gap 20 mmol/L; Blood Urea Nitrogen 39 mg/dL (9-20); Calcium 7.8 mg/dL (8.4-10.2); Carbon Dioxide 17 mmol/L (22-30); Chloride 99.1 mmol/L (98-107); Glucose 131 mg/dL (75-100); Magnesium 2.6 mg/dL (1.7-2.3); Phosphorous 4.1 mg/dL (2.5-4.5); Potassium 4.2 mmol/L (3.6-5.0); Sodium 132 mmol/L (137-145)
--- NOTE | 2016-08-20 08:58 | Progress Note ---
Assessment and Plan 55 y/o male with acute MD and systolic heart failure, now with acute respiratory failure, most likely secondary to volume overload but concern for cardiogenic shock 1. Await cardiology eval. Would like to Give lasix again today but will defer to them. 2. continue Dobutamine 3. Bipap QHS 4. Elevated white count appears to be nonspecific, no fever. Hold on abx therapy as of now. Subjective Date of service: 08/20/16 Principal diagnosis: AMS; CMP Interval history: Breathing status is improved today. Off Bipap on face mask. Sat is not accurate with poor waveform. Still on dobutamine. BP better. Does not have a catheter so I/O not accurate. Appears to have responded well to lasix and dobutamine on yesterday. Objective Vital Signs - 12hr 08/19/16 08/19/16 08/19/16 21:00 21:11 21:21 Temperature Pulse Rate 117 H 119 H 119 H Pulse Rate [ Anterior Bilateral Throughout] Respiratory 44 H 42 H 44 H Rate Respiratory Rate [Anterior Bilateral Throughout] Blood Pressure 92/71 92/71 97/70 O2 Sat by Pulse 100 100 95 Oximetry 08/19/16 08/19/16 08/19/16 21:30 21:41 21:51 Temperature Pulse Rate 118 H 118 H 118 H Pulse Rate [ Anterior Bilateral Throughout] Respiratory 42 H 40 H 41 H Rate Respiratory Rate [Anterior Bilateral Throughout] Blood Pressure 103/72 103/72 101/70 O2 Sat by Pulse 95 96 94 Oximetry 08/19/16 08/19/16 08/19/16 22:01 22:11 22:21 Temperature Pulse Rate 118 H 117 H 117 H Pulse Rate [ Anterior Bilateral Throughout] Respiratory 45 H 42 H 41 H Rate Respiratory Rate [Anterior Bilateral Throughout] Blood Pressure 107/68 107/68 90/66 O2 Sat by Pulse 94 94 95 Oximetry 08/19/16 08/19/16 08/19/16 22:30 22:41 22:51 Temperature Pulse Rate 118 H 118 H 117 H Pulse Rate [ Anterior Bilateral Throughout] Respiratory 42 H 43 H 44 H Rate Respiratory Rate [Anterior Bilateral Throughout] Blood Pressure 98/74 98/74 102/68 O2 Sat by Pulse 95 94 95 Oximetry 08/19/16 08/19/16 08/19/16 23:00 23:11 23:21 Temperature Pulse Rate 117 H 119 H 117 H Pulse Rate [ Anterior Bilateral Throughout] Respiratory 43 H 43 H 42 H Rate Respiratory Rate [Anterior Bilateral Throughout] Blood Pressure 103/67 103/67 104/66 O2 Sat by Pulse 95 96 95 Oximetry 08/19/16 08/19/16 08/19/16 23:30 23:33 23:41 Temperature Pulse Rate 117 H 117 H 117 H Pulse Rate [ Anterior Bilateral Throughout] Respiratory 41 H 45 H 42 H Rate Respiratory Rate [Anterior Bilateral Throughout] Blood Pressure 109/61 109/61 109/61 O2 Sat by Pulse 96 94 96 Oximetry 08/19/16 08/20/16 08/20/16 23:51 00:00 00:11 Temperature Pulse Rate 117 H 119 H 117 H Pulse Rate [ Anterior Bilateral Throughout] Respiratory 45 H 42 H 45 H Rate Respiratory Rate [Anterior Bilateral Throughout] Blood Pressure 100/66 106/74 106/74 O2 Sat by Pulse 95 96 96 Oximetry 08/20/16 08/20/16 08/20/16 00:21 00:30 00:41 Temperature Pulse Rate 117 H 115 H 112 H Pulse Rate [ Anterior Bilateral Throughout] Respiratory 43 H 38 H 37 H Rate Respiratory Rate [Anterior Bilateral Throughout] Blood Pressure 103/68 96/67 96/67 O2 Sat by Pulse 96 96 96 Oximetry 08/20/16 08/20/16 08/20/16 00:51 01:00 01:11 Temperature Pulse Rate 116 H 113 H 113 H Pulse Rate [ Anterior Bilateral Throughout] Respiratory 39 H 42 H 41 H Rate Respiratory Rate [Anterior Bilateral Throughout] Blood Pressure 99/61 90/60 90/60 O2 Sat by Pulse 96 97 97 Oximetry 08/20/16 08/20/16 08/20/16 01:21 01:30 01:41 Temperature Pulse Rate 111 H 96 H 105 H Pulse Rate [ Anterior Bilateral Throughout] Respiratory 42 H 30 H 39 H Rate Respiratory Rate [Anterior Bilateral Throughout] Blood Pressure 87/56 96/61 90/62 O2 Sat by Pulse 97 100 98 Oximetry 08/20/16 08/20/16 08/20/16 01:51 02:00 02:11 Temperature Pulse Rate 101 H 103 H 105 H Pulse Rate [ Anterior Bilateral Throughout] Respiratory 29 H 32 H 55 H Rate Respiratory Rate [Anterior Bilateral Throughout] Blood Pressure 95/58 101/64 101/64 O2 Sat by Pulse 98 98 96 Oximetry 0408/20/16 08/20/16 02:21 02:30 02:41 Temperature Pulse Rate 102 H 100 H 97 H Pulse Rate [ Anterior Bilateral Throughout] Respiratory 34 H 29 H 31 H Rate Respiratory Rate [Anterior Bilateral Throughout] Blood Pressure 110/74 104/77 104/77 O2 Sat by Pulse 98 97 99 Oximetry 08/20/16 08/20/16 08/20/16 02:51 02:54 03:00 Temperature Pulse Rate 96 H 94 H Pulse Rate [ 97 H Anterior Bilateral Throughout] Respiratory 30 H 33 H Rate Respiratory 27 H Rate [Anterior Bilateral Throughout] Blood Pressure 96/61 71/45 O2 Sat by Pulse 99 99 Oximetry 08/20/16 08/20/16 08/20/16 03:11 03:21 03:30 Temperature Pulse Rate 91 H 90 89 Pulse Rate [ Anterior Bilateral Throughout] Respiratory 37 H 28 H 33 H Rate Respiratory Rate [Anterior Bilateral Throughout] Blood Pressure 71/45 94/64 83/58 O2 Sat by Pulse 99 99 100 Oximetry 08/20/16 08/20/16 08/20/16 03:41 03:51 04:00 Temperature Pulse Rate 92 H 94 H 91 H Pulse Rate [ Anterior Bilateral Throughout] Respiratory 30 H 19 28 H Rate Respiratory Rate [Anterior Bilateral Throughout] Blood Pressure 83/58 103/72 106/75 O2 Sat by Pulse 99 100 100 Oximetry 08/20/16 08/20/16 08/20/16 04:11 04:21 04:30 Temperature Pulse Rate 101 H 93 H 93 H Pulse Rate [ Anterior Bilateral Throughout] Respiratory 28 H 28 H 28 H Rate Respiratory Rate [Anterior Bilateral Throughout] Blood Pressure 106/75 108/76 111/76 O2 Sat by Pulse 100 100 100 Oximetry 08/20/16 08/20/16 08/20/16 04:41 04:51 05:00 Temperature Pulse Rate 94 H 92 H 95 H Pulse Rate [ Anterior Bilateral Throughout] Respiratory 21 26 H 27 H Rate Respiratory Rate [Anterior Bilateral Throughout] Blood Pressure 111/76 98/71 114/81 O2 Sat by Pulse 100 100 100 Oximetry 08/20/16 08/20/16 08/20/16 05:11 05:21 05:30 Temperature Pulse Rate 91 H 93 H 94 H Pulse Rate [ Anterior Bilateral Throughout] Respiratory 27 H 26 H 29 H Rate Respiratory Rate [Anterior Bilateral Throughout] Blood Pressure 114/81 105/80 110/81 O2 Sat by Pulse 100 100 100 Oximetry 08/20/16 08/20/16 08/20/16 05:41 05:51 06:01 Temperature Pulse Rate 96 H 93 H 95 H Pulse Rate [ Anterior Bilateral Throughout] Respiratory 28 H 29 H 27 H Rate Respiratory Rate [Anterior Bilateral Throughout] Blood Pressure 110/81 103/80 111/82 O2 Sat by Pulse 100 100 99 Oximetry 08/20/16 08/20/16 08/20/16 06:11 06:21 06:30 Temperature Pulse Rate 92 H 89 96 H Pulse Rate [ Anterior Bilateral Throughout] Respiratory 29 H 26 H 27 H Rate Respiratory Rate [Anterior Bilateral Throughout] Blood Pressure 111/82 101/78 104/77 O2 Sat by Pulse 99 100 98 Oximetry 08/20/16 08/20/16 08/20/16 06:41 06:51 07:00 Temperature Pulse Rate 93 H 95 H 95 H Pulse Rate [ Anterior Bilateral Throughout] Respiratory 38 H 39 H 32 H Rate Respiratory Rate [Anterior Bilateral Throughout] Blood Pressure 104/77 97/66 96/67 O2 Sat by Pulse 100 100 96 Oximetry 08/20/16 08/20/16 08/20/16 07:11 07:13 07:21 Temperature Pulse Rate 95 H 98 H Pulse Rate [ 96 H Anterior Bilateral Throughout] Respiratory 32 H 41 H Rate Respiratory 28 H Rate [Anterior Bilateral Throughout] Blood Pressure 96/67 93/64 O2 Sat by Pulse 99 98 Oximetry 08/20/16 08/20/16 08/20/16 07:30 07:41 07:46 Temperature Pulse Rate 98 H 95 H Pulse Rate [ 98 H Anterior Bilateral Throughout] Respiratory 37 H 32 H Rate Respiratory 29 H Rate [Anterior Bilateral Throughout] Blood Pressure 96/72 96/72 O2 Sat by Pulse 90 100 Oximetry 08/20/16 08/20/16 07:51 08:00 Temperature 98.6 F Pulse Rate 102 H Pulse Rate [ Anterior Bilateral Throughout] Respiratory 34 H Rate Respiratory Rate [Anterior Bilateral Throughout] Blood Pressure 100/74 O2 Sat by Pulse 100 Oximetry Constitutional: no acute distress, alert Eyes: non-icteric ENT: oropharynx moist Neck: supple Ascultation: Bilateral: rales (improving) Percussion: Bilateral: not dull Cardiovascular: other (tachy) Gastrointestinal: normoactive bowel sounds Extremities: other (Left arm swollen and bilateral lower ext edema) CBC and BMP: 08/20/16 05:19 08/20/16 05:19 ABG, PT/INR, D-dimer: ABG POC ABG pH 7.507 (7.35-7.45) H 08/19/16 10:19 POC ABG pCO2 21.9 (35-45) L 08/19/16 10:19 POC ABG pO2 85 (80-105) 08/19/16 10:19 POC ABG HCO3 17.3 08/19/16 10:19 POC ABG Total CO2 18 08/19/16 10:19 POC ABG O2 Sat 98 08/19/16 10:19 PT/INR, D-dimer PT 15.1 Sec. (12.2-14.9) H 08/20/16 05:19 INR 1.20 (0.87-1.13) H 08/20/16 05:19 Abnormal lab findings: Abnormal Labs 08/16/16 08/16/16 08/16/16 16:26 16:26 20:49 WBC RBC 2.84 L Hgb 8.3 L Hct 24.7 L MCHC Lymph % (Auto) 8.3 L [place] % (Auto) 7.8 H Lymph # 0.7 L Seg Neutrophils % 83.8 H PT INR APTT Heparin Anti-Xa Level POC ABG pH POC ABG pCO2 Sodium 122 L Potassium Chloride 87.8 L Carbon Dioxide 19 L BUN Creatinine Glucose 126 H POC Glucose Calcium 7.7 L Magnesium AST Alkaline Phosphatase CK-MB (CK-2) CK-MB (CK-2) Rel Index Troponin T 0.695 H* 0.703 H* NT-Pro-B Natriuret Pep Total Protein Albumin Triglycerides 184 H HDL Cholesterol 12 L Ur Specific [place] Urine Creatinine Urine Chloride 08/16/16 08/17/16 08/17/16 20:50 04:58 08:42 WBC RBC Hgb Hct MCHC Lymph % (Auto) [place] % (Auto) Lymph # Seg Neutrophils % PT INR APTT Heparin Anti-Xa Level POC ABG pH POC ABG pCO2 Sodium 125 L 128 L Potassium Chloride 89.9 L 92.5 L Carbon Dioxide 18 L 19 L BUN 21 H Creatinine Glucose 108 H 105 H POC Glucose Calcium 7.7 L 7.5 L Magnesium AST Alkaline Phosphatase CK-MB (CK-2) 6.9 H CK-MB (CK-2) Rel Index 4.7 H Troponin T 0.590 H* NT-Pro-B Natriuret Pep Total Protein Albumin Triglycerides HDL Cholesterol Ur Specific [place] Urine Creatinine Urine Chloride 08/17/16 08/17/16 08/17/16 12:24 12:24 16:06 WBC RBC Hgb Hct MCHC Lymph % (Auto) [place] % (Auto) Lymph # Seg Neutrophils % PT INR APTT Heparin Anti-Xa Level POC ABG pH POC ABG pCO2 Sodium 127 L Potassium Chloride 91.9 L Carbon Dioxide 16 L BUN 28 H Creatinine Glucose POC Glucose Calcium 7.4 L Magnesium AST Alkaline Phosphatase CK-MB (CK-2) CK-MB (CK-2) Rel Index Troponin T NT-Pro-B Natriuret Pep Total Protein Albumin Triglycerides HDL Cholesterol Ur Specific [place] 1.034 H Urine Creatinine 220.8 H Urine Chloride 10.0 L 08/17/16 08/18/16 08/18/16 23:50 04:12 05:29 WBC RBC Hgb Hct MCHC Lymph % (Auto) [place] % (Auto) Lymph # Seg Neutrophils % PT INR APTT Heparin Anti-Xa Level POC ABG pH POC ABG pCO2 Sodium 129 L Potassium Chloride 96.5 L Carbon Dioxide 15 L BUN 43 H Creatinine 1.7 H Glucose 115 H POC Glucose 126 H 121 H Calcium 7.4 L Magnesium AST Alkaline Phosphatase CK-MB (CK-2) CK-MB (CK-2) Rel Index Troponin T NT-Pro-B Natriuret Pep Total Protein Albumin Triglycerides HDL Cholesterol Ur Specific [place] Urine Creatinine Urine Chloride 08/18/16 08/18/16 08/18/16 08:33 12:00 13:18 WBC RBC Hgb Hct MCHC Lymph % (Auto) [place] % (Auto) Lymph # Seg Neutrophils % PT 16.3 H INR 1.32 H APTT 185.1 H* Heparin Anti-Xa Level POC ABG pH POC ABG pCO2 Sodium 128 L Potassium 5.2 H Chloride 96.0 L Carbon Dioxide 16 L BUN 44 H Creatinine 1.7 H Glucose 109 H POC Glucose 125 H Calcium 7.3 L Magnesium AST 152 H Alkaline Phosphatase 175 H CK-MB (CK-2) CK-MB (CK-2) Rel Index Troponin T NT-Pro-B Natriuret Pep Total Protein 5.6 L Albumin 1.9 L Triglycerides HDL Cholesterol Ur Specific [place] Urine Creatinine Urine Chloride 08/18/16 08/18/16 08/18/16 15:42 15:42 20:38 WBC RBC Hgb Hct MCHC Lymph % (Auto) [place] % (Auto) Lymph # Seg Neutrophils % PT INR APTT 45.2 H Heparin Anti-Xa Level < 0.10 L POC ABG pH POC ABG pCO2 Sodium 128 L Potassium Chloride 95.8 L Carbon Dioxide 16 L BUN 49 H Creatinine 1.7 H Glucose 137 H POC Glucose Calcium 7.3 L Magnesium AST Alkaline Phosphatase CK-MB (CK-2) CK-MB (CK-2) Rel Index Troponin T NT-Pro-B Natriuret Pep Total Protein Albumin Triglycerides HDL Cholesterol Ur Specific [place] Urine Creatinine Urine Chloride 08/19/16 08/19/16 08/19/16 06:20 06:20 06:20 WBC RBC Hgb Hct MCHC Lymph % (Auto) [place] % (Auto) Lymph # Seg Neutrophils % PT INR APTT Heparin Anti-Xa Level 0.12 L POC ABG pH POC ABG pCO2 Sodium 128 L Potassium Chloride 95.9 L Carbon Dioxide 15 L BUN 49 H Creatinine Glucose 116 H POC Glucose Calcium 7.4 L Magnesium AST Alkaline Phosphatase CK-MB (CK-2) CK-MB (CK-2) Rel Index Troponin T NT-Pro-B Natriuret Pep 6736 H Total Protein Albumin Triglycerides HDL Cholesterol Ur Specific [place] Urine Creatinine Urine Chloride 08/19/16 08/19/16 08/19/16 10:04 10:19 11:33 WBC RBC Hgb Hct MCHC Lymph % (Auto) [place] % (Auto) Lymph # Seg Neutrophils % PT INR APTT Heparin Anti-Xa Level POC ABG pH 7.507 H POC ABG pCO2 21.9 L Sodium Potassium Chloride Carbon Dioxide BUN Creatinine Glucose POC Glucose 108 H 135 H Calcium Magnesium AST Alkaline Phosphatase CK-MB (CK-2) CK-MB (CK-2) Rel Index Troponin T NT-Pro-B Natriuret Pep Total Protein Albumin Triglycerides HDL Cholesterol Ur Specific [place] Urine Creatinine Urine Chloride 08/19/16 08/19/16 08/19/16 14:31 17:47 17:56 WBC RBC Hgb Hct MCHC Lymph % (Auto) [place] % (Auto) Lymph # Seg Neutrophils % PT INR APTT Heparin Anti-Xa Level > 1.90 H POC ABG pH POC ABG pCO2 Sodium 120 L D Potassium Chloride 89.6 L Carbon Dioxide 14 L BUN 37 H Creatinine Glucose POC Glucose 110 H Calcium 6.0 L D Magnesium AST Alkaline Phosphatase CK-MB (CK-2) CK-MB (CK-2) Rel Index Troponin T NT-Pro-B Natriuret Pep Total Protein Albumin Triglycerides HDL Cholesterol Ur Specific [place] Urine Creatinine Urine Chloride 08/20/16 08/20/16 08/20/16 00:21 05:19 05:19 WBC 22.7 H RBC 2.92 L Hgb 8.2 L Hct 26.2 L MCHC 31 L Lymph % (Auto) [place] % (Auto) Lymph # Seg Neutrophils % PT 15.1 H INR 1.20 H APTT Heparin Anti-Xa Level < 0.10 L POC ABG pH POC ABG pCO2 Sodium Potassium Chloride Carbon Dioxide BUN Creatinine Glucose POC Glucose Calcium Magnesium AST Alkaline Phosphatase CK-MB (CK-2) CK-MB (CK-2) Rel Index Troponin T NT-Pro-B Natriuret Pep Total Protein Albumin Triglycerides HDL Cholesterol Ur Specific [place] Urine Creatinine Urine Chloride 08/20/16 05:19 WBC RBC Hgb Hct MCHC Lymph % (Auto) [place] % (Auto) Lymph # Seg Neutrophils % PT INR APTT Heparin Anti-Xa Level POC ABG pH POC ABG pCO2 Sodium 132 L D Potassium Chloride Carbon Dioxide 17 L BUN 39 H Creatinine Glucose 131 H POC Glucose Calcium 7.8 L D Magnesium 2.6 H AST Alkaline Phosphatase CK-MB (CK-2) CK-MB (CK-2) Rel Index Troponin T NT-Pro-B Natriuret Pep Total Protein Albumin Triglycerides HDL Cholesterol Ur Specific [place] Urine Creatinine Urine Chloride
[2016-08-20] MEDS: DOBUTREX DRIP 500MG/D5W 250ML 500 MG/250 ML BAG IV SCH (09:47)
[2016-08-20] MEDS: THERAGRAN Tab PO SCH (09:48)
[2016-08-20] MEDS: COUMADIN PO SCH (09:48)
[2016-08-20] MEDS: VITAMIN B-1 PO SCH (09:48)
[2016-08-20] MEDS: FOLVITE PO SCH (09:48)
--- NOTE | 2016-08-20 10:30 | XRay Report ---
AP CHEST :08/20/16 CLINICAL: Shortness of breath. COMPARISON:08/19/16 FINDINGS: Stable cardiomegaly. However, decrease central vascular congestion and near complete clearing of the lung bases. No tubes or lines. The bones and soft tissues are normal.No tubes or lines. IMPRESSION: CHF with significant interval improvement.
[2016-08-20] MEDS ORDERED: LASIX IV ONE (10:49)
--- NOTE | 2016-08-20 10:56 | Progress Note ---
Assessment and Plan Assessment: AMS / encephalopathy - head CT with no acute intracranial abnormality. Consider neurology consultation if AMS persists. Abnormal EKG / ACS ruled out - pt underwent coronary angiography on 08/16/2016 which revealed patent coronaries, EF 15%. Elevated troponins Takotsubo CMP Hypotension / Acute systolic HF / ? cardiogenic shock Cardiac thrombus - pendunculated LV thrombus; likely chronic; on heparin gtt with PO coumadin. Sinus tachycardia ? syncopal episode 1 month ago HTN Hyponatremia - improving. ARF - nephrology following. Anemia ETOH abuse / ETOH withdrawal - UDS negative; cessation encouraged; CIWA protocol. Plan: Continue dobutamine, start low dose of coreg and see how he tolerates. Continue iv Lasix prn. Subjective Date of service: 08/20/16 Principal diagnosis: AMS; CMP Interval history: Patient comfortable,no particular complaints,still appears cofused on and off, telemetry showing sinus tach. Objective Vital Signs Last Vital Signs Temp 98.6 F 08/20/16 08:00 Pulse 103 H 08/20/16 09:30 Resp 33 H 08/20/16 09:30 BP 94/73 08/20/16 09:30 Pulse Ox 100 08/20/16 09:21 - Physical Examination General: No Apparent Distress, Other (ill-appearing ) HEENT: Positive: PERRL, Normocephaly, Mucus Membranes Moist Neck: Positive: neck supple, trachea midline Cardiac: Positive: S3, S4, Tachycardia Lungs: Positive: Decreased Breath Sounds Neuro: Positive: Grossly Intact, Other (withdrawn, opens eyes to commands, follows commands appropriately. ) Abdomen: Positive: Unremarkable, Soft, Active Bowel Sounds. Negative: Tender Skin: Positive: Clear. Negative: Rash, Wound Musculoskeletal: No Fluid Collection, No Pain, Normal Range of Motion Extremities: Present: normal, upper extr. pulses, lower extr. pulses. Absent: edema - Labs and Meds Coagulation 08/20/16 Range/Units 05:19 PT 15.1 H (12.2-14.9) Sec. INR 1.20 H (0.87-1.13) CBC 08/20/16 Range/Units 05:19 WBC 22.7 H (4.5-11.0) K/mm3 RBC 2.92 L (3.65-5.03) M/mm3 Hgb 8.2 L (11.8-15.2) gm/dl Hct 26.2 L (35.5-45.6) % Plt Count 266 (140-440) K/mm3 Comprehensive Metabolic Panel 08/19/16 08/19/16 08/20/16 Range/Units 16:10 17:47 05:19 Sodium TNR 120 L D 132 L D Potassium TNR 3.8 4.2 Chloride TNR 89.6 L 99.1 Carbon Dioxide TNR 14 L 17 L BUN TNR 37 H 39 H Creatinine TNR 1.1 1.2 Glucose TNR 100 131 H Calcium TNR 6.0 L D 7.8 L D - Imaging and Cardiology EKG: report reviewed, image reviewed Echo: report reviewed (08/16/2016: severe global hypokinesis, EF 15-20%, mild LHV , mild to moderate MR, moderate TR, minimal pericardial effusion, thrombus in the LV) - Telemetry EKG Rhythm: Sinus Tachycardia - EKG Sinus rhythms and dysrhythmias: sinus rhythm Myocardial infarction: anterior OK (acute or rec, lateral OK (acute or rece
--- NOTE | 2016-08-20 11:00 | Progress Note ---
Assessment and Plan Assessment and plan: Acute encephalopathy with altered mental status. Improving. May be secondary to alcohol withdrawal, No localizing signs. He is awake, alert, CT head no stroke. maxillary sinus disease. Continue [facility] protocol. neurochecks. Acute respiratory failure due to pulmonary edema due to cardiomyopathy. Transferred to ICU, supplemental Oxygen, Discussed with upholstery cleaner. Acute systolic heart failure. Started dobutamine drip. Lasix IV. Cardiogenic shock. On dobutamine drip. Blood pressure improving Alcohol withdrawal syndrome. Cont CIWA protocol. Ativan iv prn. He said he drinks 6 pack beer every other day, last drink few days ago. ST elevation on EKG. He was taken to cardiac labor operator, but had normal coronaries , likely Takotsubo cardiomyopathy. Takotsubo cardiomyopathy. managed by cardiology. Hyponatremia. Improving. Sodium 132 today. Nephrology following. Hyperkalemia. Resolved. Hypotension. improved. d/c iv fluid because very low EF LV thrombus, pedunculated. Continue Heparin drip, Coumadin. Full code status History Interval history: patient was confused on admission, no more confusion, palpitations, shortness of breath Hospitalist Physical - Physical exam Narrative exam: Gen: Not in acute distress HEENT: Atraumatic, Normocephalic Neck: supple, no JVD Lungs: Bilateral basal rales, no wheeze Heart S1-S2 regular, rapid, no murmurs rubs or gallop, Abdomen: soft, non tender,non-distended, normal bowel sounds Ext: No edema, cyanosis or clubbing Neuro: Awake, alert, oriented to person,place,time, non focal - Constitutional Vitals: Temp Pulse Resp BP Pulse Ox 98.6 F 103 H 33 H 94/73 100 08/20/16 08:00 08/20/16 09:30 08/20/16 09:30 08/20/16 09:30 08/20/16 09:21 General appearance: Present: no acute distress, well-nourished Results - Labs CBC & Chem 7: 08/20/16 05:19 08/20/16 05:19 Labs: Laboratory Last Values WBC 22.7 K/mm3 (4.5-11.0) H 08/20/16 05:19 RBC 2.92 M/mm3 (3.65-5.03) L 08/20/16 05:19 Hgb 8.2 gm/dl (11.8-15.2) L 08/20/16 05:19 Hct 26.2 % (35.5-45.6) L 08/20/16 05:19 MCV 90 fl (84-94) 08/20/16 05:19 MCH 28 pg (28-32) 08/20/16 05:19 MCHC 31 % (32-34) L 08/20/16 05:19 RDW 14.5 % (13.2-15.2) 08/20/16 05:19 Plt Count 266 K/mm3 (140-440) 08/20/16 05:19 Lymph % (Auto) 8.3 % (13.4-35.0) L 08/16/16 16:26 [place] % (Auto) 7.8 % (0.0-7.3) H 08/16/16 16:26 Eos % (Auto) 0.0 % (0.0-4.3) 08/16/16 16:26 Baso % (Auto) 0.1 % (0.0-1.8) 08/16/16 16:26 Lymph # 0.7 K/mm3 (1.2-5.4) L 08/16/16 16:26 [place] # 0.6 K/mm3 (0.0-0.8) 08/16/16 16:26 Eos # 0.0 K/mm3 (0.0-0.4) 08/16/16 16:26 Baso # 0.0 K/mm3 (0.0-0.1) 08/16/16 16:26 Seg Neutrophils % 83.8 % (40.0-70.0) H 08/16/16 16:26 Seg Neutrophils # 7.0 K/mm3 (1.8-7.7) 08/16/16 16:26 PT 15.1 Sec. (12.2-14.9) H 08/20/16 05:19 INR 1.20 (0.87-1.13) H 08/20/16 05:19 APTT 45.2 Sec. (24.2-36.6) H 08/18/16 15:42 Heparin Anti-Xa Level 0.39 U.I./ml (0.3-0.7) 08/20/16 10:06 POC ABG pH 7.507 (7.35-7.45) H 08/19/16 10:19 POC ABG pCO2 21.9 (35-45) L 08/19/16 10:19 POC ABG pO2 85 (80-105) 08/19/16 10:19 POC ABG HCO3 17.3 08/19/16 10:19 POC ABG Total CO2 18 08/19/16 10:19 POC ABG O2 Sat 98 08/19/16 10:19 POC ABG Base Excess -6 08/19/16 10:19 FiO2 35 % 08/19/16 10:19 Sodium 132 mmol/L (137-145) L D 08/20/16 05:19 Potassium 4.2 mmol/L (3.6-5.0) 08/20/16 05:19 Chloride 99.1 mmol/L (98-107) 08/20/16 05:19 Carbon Dioxide 17 mmol/L (22-30) L 08/20/16 05:19 Anion Gap 20 mmol/L 08/20/16 05:19 BUN 39 mg/dL (9-20) H 08/20/16 05:19 Creatinine 1.2 mg/dL (0.8-1.5) 08/20/16 05:19 Estimated GFR > 60 ml/min 08/20/16 05:19 BUN/Creatinine Ratio 32.50 % 08/20/16 05:19 Glucose 131 mg/dL (75-100) H 08/20/16 05:19 POC Glucose 110 (70-105) H 08/19/16 17:56 Calcium 7.8 mg/dL (8.4-10.2) L D 08/20/16 05:19 Phosphorus 4.1 mg/dL (2.5-4.5) 08/20/16 05:19 Magnesium 2.6 mg/dL (1.7-2.3) H 08/20/16 05:19 Total Bilirubin 1.1 mg/dL (0.1-1.2) 08/18/16 08:33 AST 152 units/L (5-40) H 08/18/16 08:33 ALT 38 units/L (7-56) 08/18/16 08:33 Alkaline Phosphatase 175 units/L (35-129) H 08/18/16 08:33 Total Creatine Kinase 144 units/L (55-170) 08/17/16 08:42 CK-MB (CK-2) 6.9 ng/mL (0.0-4.0) H 08/17/16 08:42 CK-MB (CK-2) Rel Index 4.7 (0-4) H 08/17/16 08:42 Troponin T 0.590 ng/mL (0.00-0.029) H* 08/17/16 08:42 NT-Pro-B Natriuret Pep 6736 pg/mL (0-900) H 08/19/16 06:20 Total Protein 5.6 g/dL (6.3-8.2) L 08/18/16 08:33 Albumin 1.9 g/dL (3.9-5) L 08/18/16 08:33 Albumin/Globulin Ratio 0.5 % 08/18/16 08:33 Triglycerides 184 mg/dL (2-149) H 08/16/16 16:26 Cholesterol 130 mg/dL (50-199) 08/16/16 16:26 LDL Cholesterol Direct 77 mg/dL (50-130) 08/16/16 16:26 HDL Cholesterol 12 mg/dL (40-59) L 08/16/16 16:26 Cholesterol/HDL Ratio 10.83 % 08/16/16 16:26 Urine Color Mami (Yellow) 08/17/16 12:24 Urine Turbidity Clear (Clear) 08/17/16 12:24 Urine pH 5.0 (5.0-7.0) 08/17/16 12:24 Ur Specific [place] 1.034 (1.003-1.030) H 08/17/16 12:24 Urine Protein 100 mg/dl mg/dL (Negative) 08/17/16 12:24 Urine Glucose (UA) Neg mg/dL (Negative) 08/17/16 12:24 Urine Ketones Neg mg/dL (Negative) 08/17/16 12:24 Urine Blood Neg (Negative) 08/17/16 12:24 Urine Nitrite Neg (Negative) 08/17/16 12:24 Urine Bilirubin Neg (Negative) 08/17/16 12:24 Urine Urobilinogen 4.0 mg/dL (<2.0) 08/17/16 12:24 Ur Leukocyte Esterase Neg (Negative) 08/17/16 12:24 Urine Osmolality 552 Mosm/kg 08/17/16 12:24 Urine Creatinine 220.8 mg/dL (0.1-20.0) H 08/17/16 12:24 Urine Sodium 10 mEq/L 08/17/16 12:24 Urine Chloride 10.0 mEq/L (110-250) L 08/17/16 12:24 Urine Opiates Screen Presumptive negative 08/16/16 21:00 Urine Methadone Screen Presumptive negative 08/16/16 21:00 Ur Barbiturates Screen Presumptive negative 08/16/16 21:00 Ur Phencyclidine Scrn Presumptive negative 08/16/16 21:00 Ur Amphetamines Screen Presumptive negative 08/16/16 21:00 U Benzodiazepines Scrn Presumptive negative 08/16/16 21:00 Urine Cocaine Screen Presumptive negative 08/16/16 21:00 U Marijuana (THC) Screen Presumptive negative 08/16/16 21:00 Drugs of Abuse Note Disclamer 08/16/16 21:00
--- NOTE | 2016-08-20 12:10 | Progress Note ---
Assessment and Plan Assessment: * Acute kidney injury * Nonischemic cardiomyopathy - EF 15% --LHC: nml coronaries, severe global hypokinesis * LV thrombus * Altered mental status * Hyponatremia - stable * Metabolic acidosis * Alcohol abuse Plan: * Renal function has improved * Diuresis per cardiology * na is better today * Anticoagulation per cardiology * Optimization of cardiac function * Avoid potential nephrotoxins * Monitor lytes * will see prn Subjective Principal diagnosis: AMS; CMP Interval history: resting well in bed today Objective - Exam Narrative Exam: General appearance: chronically ill EENT: ATNC Respiratory: Present: Decreased Breath Sounds Cardiology: regular, S1S2 Gastrointestinal: normal, no tenderness, no distended Integumentary: no rash Musculoskeletal: other (no edema) Psychiatric: cooperative - Vital Signs Vital signs: Vital Signs - 12hr 08/20/16 08/20/16 08/20/16 00:11 00:21 00:30 Temperature Pulse Rate 117 H 117 H 115 H Pulse Rate [ Anterior Bilateral Throughout] Pulse Rate [ Apical] Respiratory 45 H 43 H 38 H Rate Respiratory Rate [Anterior Bilateral Throughout] Blood Pressure 106/74 103/68 96/67 O2 Sat by Pulse 96 96 96 Oximetry 08/20/16 08/20/16 08/20/16 00:41 00:51 01:00 Temperature Pulse Rate 112 H 116 H 113 H Pulse Rate [ Anterior Bilateral Throughout] Pulse Rate [ Apical] Respiratory 37 H 39 H 42 H Rate Respiratory Rate [Anterior Bilateral Throughout] Blood Pressure 96/67 99/61 90/60 O2 Sat by Pulse 96 96 97 Oximetry 08/20/16 08/20/16 08/20/16 01:11 01:21 01:30 Temperature Pulse Rate 113 H 111 H 96 H Pulse Rate [ Anterior Bilateral Throughout] Pulse Rate [ Apical] Respiratory 41 H 42 H 30 H Rate Respiratory Rate [Anterior Bilateral Throughout] Blood Pressure 90/60 87/56 96/61 O2 Sat by Pulse 97 97 100 Oximetry 08/20/16 08/20/16 08/20/16 01:41 01:51 02:00 Temperature Pulse Rate 105 H 101 H 103 H Pulse Rate [ Anterior Bilateral Throughout] Pulse Rate [ Apical] Respiratory 39 H 29 H 32 H Rate Respiratory Rate [Anterior Bilateral Throughout] Blood Pressure 90/62 95/58 101/64 O2 Sat by Pulse 98 98 98 Oximetry 08/20/16 08/20/16 08/20/16 02:11 02:21 02:30 Temperature Pulse Rate 105 H 102 H 100 H Pulse Rate [ Anterior Bilateral Throughout] Pulse Rate [ Apical] Respiratory 55 H 34 H 29 H Rate Respiratory Rate [Anterior Bilateral Throughout] Blood Pressure 101/64 110/74 104/77 O2 Sat by Pulse 96 98 97 Oximetry 08/20/16 08/20/16 08/20/16 02:41 02:51 02:54 Temperature Pulse Rate 97 H 96 H Pulse Rate [ 97 H Anterior Bilateral Throughout] Pulse Rate [ Apical] Respiratory 31 H 30 H Rate Respiratory 27 H Rate [Anterior Bilateral Throughout] Blood Pressure 104/77 96/61 O2 Sat by Pulse 99 99 Oximetry 08/20/16 08/20/16 08/20/16 03:00 03:11 03:21 Temperature Pulse Rate 94 H 91 H 90 Pulse Rate [ Anterior Bilateral Throughout] Pulse Rate [ Apical] Respiratory 33 H 37 H 28 H Rate Respiratory Rate [Anterior Bilateral Throughout] Blood Pressure 71/45 71/45 94/64 O2 Sat by Pulse 99 99 99 Oximetry 08/20/16 08/20/16 08/20/16 03:30 03:41 03:51 Temperature Pulse Rate 89 92 H 94 H Pulse Rate [ Anterior Bilateral Throughout] Pulse Rate [ Apical] Respiratory 33 H 30 H 19 Rate Respiratory Rate [Anterior Bilateral Throughout] Blood Pressure 83/58 83/58 103/72 O2 Sat by Pulse 100 99 100 Oximetry 08/20/16 08/20/16 08/20/16 04:00 04:11 04:21 Temperature Pulse Rate 91 H 101 H 93 H Pulse Rate [ Anterior Bilateral Throughout] Pulse Rate [ Apical] Respiratory 28 H 28 H 28 H Rate Respiratory Rate [Anterior Bilateral Throughout] Blood Pressure 106/75 106/75 108/76 O2 Sat by Pulse 100 100 100 Oximetry 08/20/16 08/20/16 08/20/16 04:30 04:41 04:51 Temperature Pulse Rate 93 H 94 H 92 H Pulse Rate [ Anterior Bilateral Throughout] Pulse Rate [ Apical] Respiratory 28 H 21 26 H Rate Respiratory Rate [Anterior Bilateral Throughout] Blood Pressure 111/76 111/76 98/71 O2 Sat by Pulse 100 100 100 Oximetry 08/20/16 08/20/16 08/20/16 05:00 05:11 05:21 Temperature Pulse Rate 95 H 91 H 93 H Pulse Rate [ Anterior Bilateral Throughout] Pulse Rate [ Apical] Respiratory 27 H 27 H 26 H Rate Respiratory Rate [Anterior Bilateral Throughout] Blood Pressure 114/81 114/81 105/80 O2 Sat by Pulse 100 100 100 Oximetry 08/20/16 08/20/16 08/20/16 05:30 05:41 05:51 Temperature Pulse Rate 94 H 96 H 93 H Pulse Rate [ Anterior Bilateral Throughout] Pulse Rate [ Apical] Respiratory 29 H 28 H 29 H Rate Respiratory Rate [Anterior Bilateral Throughout] Blood Pressure 110/81 110/81 103/80 O2 Sat by Pulse 100 100 100 Oximetry 08/20/16 08/20/16 08/20/16 06:01 06:11 06:21 Temperature Pulse Rate 95 H 92 H 89 Pulse Rate [ Anterior Bilateral Throughout] Pulse Rate [ Apical] Respiratory 27 H 29 H 26 H Rate Respiratory Rate [Anterior Bilateral Throughout] Blood Pressure 111/82 111/82 101/78 O2 Sat by Pulse 99 99 100 Oximetry 08/20/16 08/20/16 08/20/16 06:30 06:41 06:51 Temperature Pulse Rate 96 H 93 H 95 H Pulse Rate [ Anterior Bilateral Throughout] Pulse Rate [ Apical] Respiratory 27 H 38 H 39 H Rate Respiratory Rate [Anterior Bilateral Throughout] Blood Pressure 104/77 104/77 97/66 O2 Sat by Pulse 98 100 100 Oximetry 08/20/16 08/20/16 08/20/16 07:00 07:11 07:13 Temperature Pulse Rate 95 H 95 H Pulse Rate [ 96 H Anterior Bilateral Throughout] Pulse Rate [ Apical] Respiratory 32 H 32 H Rate Respiratory 28 H Rate [Anterior Bilateral Throughout] Blood Pressure 96/67 96/67 O2 Sat by Pulse 96 99 98 Oximetry 08/20/16 08/20/16 08/20/16 07:21 07:30 07:41 Temperature Pulse Rate 98 H 98 H 95 H Pulse Rate [ Anterior Bilateral Throughout] Pulse Rate [ Apical] Respiratory 41 H 37 H 32 H Rate Respiratory Rate [Anterior Bilateral Throughout] Blood Pressure 93/64 96/72 96/72 O2 Sat by Pulse 90 100 Oximetry 08/20/16 08/20/16 08/20/16 07:46 07:51 08:00 Temperature 98.6 F Pulse Rate 102 H 98 H Pulse Rate [ 98 H Anterior Bilateral Throughout] Pulse Rate [ Apical] Respiratory 34 H 38 H Rate Respiratory 29 H Rate [Anterior Bilateral Throughout] Blood Pressure 100/74 102/76 O2 Sat by Pulse 100 99 Oximetry 08/20/16 08/20/16 08/20/16 08:11 08:21 08:30 Temperature Pulse Rate 97 H 97 H 99 H Pulse Rate [ Anterior Bilateral Throughout] Pulse Rate [ Apical] Respiratory 27 H 32 H 41 H Rate Respiratory Rate [Anterior Bilateral Throughout] Blood Pressure 102/76 108/76 95/70 O2 Sat by Pulse 74 L 100 Oximetry 08/20/16 08/20/16 08/20/16 08:41 08:51 09:00 Temperature Pulse Rate 103 H 102 H 103 H Pulse Rate [ Anterior Bilateral Throughout] Pulse Rate [ Apical] Respiratory 27 H 35 H 29 H Rate Respiratory Rate [Anterior Bilateral Throughout] Blood Pressure 95/70 109/81 105/70 O2 Sat by Pulse 89 100 100 Oximetry 08/20/16 08/20/16 08/20/16 09:05 09:11 09:21 Temperature Pulse Rate 101 H 105 H Pulse Rate [ Anterior Bilateral Throughout] Pulse Rate [ 105 H Apical] Respiratory 21 26 H 25 H Rate Respiratory Rate [Anterior Bilateral Throughout] Blood Pressure 105/70 106/76 O2 Sat by Pulse 100 75 L 100 Oximetry 08/20/16 09:30 Temperature Pulse Rate 103 H Pulse Rate [ Anterior Bilateral Throughout] Pulse Rate [ Apical] Respiratory 33 H Rate Respiratory Rate [Anterior Bilateral Throughout] Blood Pressure 94/73 O2 Sat by Pulse Oximetry - Lab 08/20/16 05:19 08/20/16 05:19 Most recent lab results Calcium 7.8 mg/dL (8.4-10.2) L D 08/20/16 05:19 Phosphorus 4.1 mg/dL (2.5-4.5) 08/20/16 05:19 Magnesium 2.6 mg/dL (1.7-2.3) H 08/20/16 05:19 Urine Creatinine 220.8 mg/dL (0.1-20.0) H 08/17/16 12:24 Urine Sodium 10 mEq/L 08/17/16 12:24
[2016-08-20] MEDS: COREG PO SCH ×2 (13:33→21:25)
[2016-08-20 19:40] LABS: Anion Gap TNR mmol/L; Carbon Dioxide TNR mmol/L (22-30); Chloride TNR mmol/L (98-107); Potassium TNR mmol/L (3.6-5.0); Sodium TNR mmol/L (137-145)
[2016-08-20 19:43] LABS: Blood Urea Nitrogen TNR mg/dL (9-20)
[2016-08-20 19:44] LABS: BUN/Creatinine Ratio TNR; Calcium TNR mg/dL (8.4-10.2); Glucose TNR mg/dL (75-100)
[2016-08-20 20:38] LABS: Anion Gap 20 mmol/L; BUN/Creatinine Ratio 28.33; Blood Urea Nitrogen 34 mg/dL (9-20); Calcium 7.9 mg/dL (8.4-10.2); Carbon Dioxide 18 mmol/L (22-30); Chloride 95.7 mmol/L (98-107); Glucose 121 mg/dL (75-100); Potassium 4.2 mmol/L (3.6-5.0); Sodium 129 mmol/L (137-145)
[2016-08-21] MEDS: DUONEB 0.5 MG-3 MG/3 ML SOLN IH SCH ×4 (02:18→19:40)
[2016-08-21] MEDS: TYLENOL PO PRN ×2 (05:35→21:31)
[2016-08-21] MEDS: DOBUTREX DRIP 500MG/D5W 250ML 500 MG/250 ML BAG IV SCH (05:40)
[2016-08-21 07:40] LABS: Hematocrit 22.2 % (35.5-45.6); Hemoglobin 7.2 gm/dl (11.8-15.2); Mean Corpuscular HGB Conc 32 % (32-34); Mean Corpuscular Hemoglobin 28 pg (28-32); Mean Corpuscular Volume 87 fl (84-94); Platelet Count 277 K/mm3 (140-440); Red Blood Count 2.54 M/mm3 (3.65-5.03); Red Cell Distribution Width 14.5 % (13.2-15.2); White Blood Count 18.3 K/mm3 (4.5-11.0)
[2016-08-21 07:54] LABS: INR 1.36 (0.87-1.13)
[2016-08-21 07:57] LABS: Anion Gap 20 mmol/L; BUN/Creatinine Ratio 29.09; Blood Urea Nitrogen 32 mg/dL (9-20); Calcium 7.7 mg/dL (8.4-10.2); Carbon Dioxide 17 mmol/L (22-30); Chloride 99.3 mmol/L (98-107); Glucose 123 mg/dL (75-100); Sodium 132 mmol/L (137-145)
[2016-08-21] MEDS: VITAMIN B-1 PO SCH (10:48)
[2016-08-21] MEDS: FOLVITE PO SCH (10:48)
[2016-08-21] MEDS: COREG PO SCH ×2 (10:48→21:31)
[2016-08-21] MEDS: THERAGRAN Tab PO SCH (10:48)
--- NOTE | 2016-08-21 11:20 | Progress Note ---
Assessment and Plan Assessment: AMS / encephalopathy - head CT with no acute intracranial abnormality. Consider neurology consultation if AMS persists. Abnormal EKG / ACS ruled out - pt underwent coronary angiography on 08/16/2016 which revealed patent coronaries, EF 15%. Elevated troponins Takotsubo CMP Hypotension / Acute systolic HF / ? cardiogenic shock Cardiac thrombus - pendunculated LV thrombus; likely chronic; on heparin gtt with PO coumadin. Sinus tachycardia ? syncopal episode 1 month ago HTN Hyponatremia - improving. ARF - nephrology following. Anemia ETOH abuse / ETOH withdrawal - UDS negative; cessation encouraged; CIWA protocol. Plan:continues be tachypneic and weak,B.P on low side, Continue dobutamine, continue Coreg, increase Lasix to twice a day and monitor BMP.. Subjective Date of service: 08/21/16 Principal diagnosis: AMS; CMP Interval history: Patient still tachypneic,no particular complaints,still appears cofused on and off,telemetry showing sinus tach. Objective Vital Signs Temp Pulse Pulse Pulse Pulse Resp Resp 08/21/16 10:41 95 H 41 H 08/21/16 10:30 97 H 35 H 08/21/16 10:21 97 H 32 H 08/21/16 10:11 92 H 33 H 08/21/16 10:00 94 H 41 H 08/21/16 09:51 100 H 34 H 08/21/16 09:41 94 H 38 H 08/21/16 09:30 99 H 34 H 08/21/16 09:21 99 H 29 H 08/21/16 09:11 100 H 28 H 08/21/16 09:01 100 H 32 H 08/21/16 08:51 104 H 30 H 08/21/16 08:41 104 H 26 H 08/21/16 08:31 103 H 29 H 08/21/16 08:21 104 H 21 08/21/16 08:11 106 H 22 08/21/16 08:00 97.3 F L 102 H 32 H 08/21/16 07:51 96 H 34 H 08/21/16 07:50 102 H 18 08/21/16 07:41 87 27 H 08/21/16 07:40 103 H 18 08/21/16 07:30 91 H 24 08/21/16 07:21 87 30 H 08/21/16 07:11 93 H 36 H 08/21/16 07:00 88 28 H 08/21/16 06:51 96 H 28 H 08/21/16 06:41 97 H 21 08/21/16 06:30 99 H 29 H 08/21/16 06:20 100 H 30 H 08/21/16 06:11 102 H 29 H 08/21/16 06:00 103 H 33 H 08/21/16 05:51 110 H 30 H 08/21/16 05:41 112 H 27 H 08/21/16 05:30 112 H 33 H 08/21/16 05:21 110 H 24 08/21/16 05:11 110 H 36 H 08/21/16 05:00 111 H 31 H 08/21/16 04:51 108 H 28 H 08/21/16 04:41 110 H 25 H 08/21/16 04:30 107 H 19 08/21/16 04:21 108 H 30 H 08/21/16 04:11 107 H 29 H 08/21/16 04:00 100.7 F H 108 H 26 H 08/21/16 03:51 110 H 38 H 08/21/16 03:41 106 H 31 H 08/21/16 03:30 109 H 34 H 08/21/16 03:24 104 H 104 H 25 H 08/21/16 03:21 103 H 19 08/21/16 03:20 104 H 08/21/16 03:11 107 H 35 H 08/21/16 03:00 104 H 25 H 08/21/16 02:51 105 H 18 08/21/16 02:41 105 H 29 H 08/21/16 02:35 106 H 27 H 08/21/16 02:33 99 H 20 08/21/16 02:30 103 H 28 H 08/21/16 02:21 108 H 33 H 08/21/16 02:19 106 H 24 08/21/16 02:11 110 H 35 H 08/21/16 02:00 105 H 27 H 08/21/16 01:51 107 H 33 H 08/21/16 01:41 103 H 31 H 08/21/16 01:30 105 H 30 H 08/21/16 01:21 106 H 27 H 08/21/16 01:11 104 H 25 H 08/21/16 01:00 106 H 28 H 08/21/16 00:51 104 H 28 H 08/21/16 00:41 108 H 29 H 08/21/16 00:30 110 H 29 H 08/21/16 00:21 107 H 21 08/21/16 00:11 112 H 54 H 08/21/16 00:00 100.0 F H 107 H 28 H 08/20/16 23:51 106 H 26 H 08/20/16 23:41 105 H 35 H 08/20/16 23:30 103 H 29 H 08/20/16 23:21 103 H 32 H 08/20/16 23:11 103 H 33 H 08/20/16 23:00 103 H 34 H 08/20/16 22:51 103 H 34 H 08/20/16 22:41 104 H 33 H 08/20/16 22:30 106 H 33 H 08/20/16 22:21 105 H 33 H 08/20/16 22:11 106 H 33 H 08/20/16 22:00 106 H 33 H 08/20/16 21:51 106 H 30 H 08/20/16 21:41 107 H 28 H 08/20/16 21:30 111 H 25 H 08/20/16 21:28 32 H 08/20/16 21:25 108 H 08/20/16 21:21 107 H 34 H 08/20/16 21:11 107 H 32 H 08/20/16 21:00 110 H 28 H 08/20/16 20:51 107 H 26 H 08/20/16 20:45 107 H 29 H 08/20/16 20:41 109 H 32 H 08/20/16 20:38 110 H 28 H 08/20/16 20:30 109 H 30 H 08/20/16 20:28 108 H 34 H 08/20/16 20:21 107 H 22 08/20/16 20:11 110 H 31 H 08/20/16 20:00 109 H 30 H 08/20/16 19:51 109 H 33 H 08/20/16 19:49 101.9 F H 08/20/16 19:41 112 H 31 H 08/20/16 19:33 107 H 38 H 08/20/16 19:30 109 H 32 H 08/20/16 19:21 110 H 33 H 08/20/16 19:11 110 H 33 H 08/20/16 19:00 108 H 41 H 08/20/16 18:51 111 H 33 H 08/20/16 18:41 111 H 34 H 08/20/16 18:30 113 H 31 H 08/20/16 18:21 109 H 28 H 08/20/16 18:11 113 H 33 H 08/20/16 18:00 110 H 108 H 30 H 08/20/16 17:51 111 H 30 H 08/20/16 17:41 115 H 32 H 08/20/16 17:30 113 H 32 H 08/20/16 17:21 112 H 43 H 08/20/16 17:11 113 H 32 H 08/20/16 17:00 98.1 F 111 H 27 H 08/20/16 16:51 114 H 32 H 08/20/16 16:41 112 H 33 H 08/20/16 16:40 32 H 08/20/16 16:30 115 H 35 H 08/20/16 16:21 113 H 32 H 08/20/16 16:11 114 H 36 H 08/20/16 16:00 115 H 34 H 08/20/16 15:51 117 H 29 H 08/20/16 15:41 118 H 35 H 08/20/16 15:31 122 H 48 H 08/20/16 15:21 117 H 29 H 08/20/16 15:11 111 H 30 H 08/20/16 15:00 113 H 26 H 08/20/16 14:51 116 H 31 H 08/20/16 14:41 119 H 29 H 08/20/16 14:30 116 H 26 H 08/20/16 14:21 115 H 26 H 08/20/16 14:11 120 H 31 H 08/20/16 14:01 116 H 22 08/20/16 13:51 120 H 29 H 08/20/16 13:41 119 H 21 08/20/16 13:33 120 H 08/20/16 13:30 119 H 119 H 20 29 H 08/20/16 13:21 118 H 24 08/20/16 13:20 117 H 27 H 08/20/16 13:11 118 H 28 H 08/20/16 13:00 120 H 119 H 23 08/20/16 12:51 120 H 29 H 08/20/16 12:41 120 H 28 H 08/20/16 12:30 120 H 27 H 08/20/16 12:21 118 H 26 H 08/20/16 12:11 117 H 28 H 08/20/16 12:01 121 H 28 H 08/20/16 12:00 97.7 F 08/20/16 11:51 118 H 28 H 08/20/16 11:41 120 H 33 H 08/20/16 11:31 120 H 35 H 08/20/16 11:21 117 H 28 H BP Pulse Ox 08/21/16 10:41 91/67 99 08/21/16 10:30 91/67 99 08/21/16 10:21 91/65 99 08/21/16 10:11 81/56 100 08/21/16 10:00 81/56 98 08/21/16 09:51 89/60 100 08/21/16 09:41 89/58 99 08/21/16 09:30 93/63 100 08/21/16 09:21 89/58 100 08/21/16 09:11 100/70 97 08/21/16 09:01 100/70 98 08/21/16 08:51 108/72 98 08/21/16 08:41 108/72 97 08/21/16 08:31 108/72 98 08/21/16 08:21 121/87 98 08/21/16 08:11 112/83 98 08/21/16 08:00 112/83 100 08/21/16 07:51 100/70 100 08/21/16 07:50 08/21/16 07:41 97/67 100 08/21/16 07:40 08/21/16 07:30 97/67 100 08/21/16 07:21 88/58 100 08/21/16 07:11 91/56 99 08/21/16 07:00 78/53 100 08/21/16 06:51 88/58 99 08/21/16 06:41 87/54 100 08/21/16 06:30 91/56 100 08/21/16 06:20 87/54 100 08/21/16 06:11 88/55 100 08/21/16 06:00 88/55 100 08/21/16 05:51 106/73 99 08/21/16 05:41 119/85 97 08/21/16 05:30 119/85 98 08/21/16 05:21 116/77 98 08/21/16 05:11 107/76 98 08/21/16 05:00 107/76 98 08/21/16 04:51 113/79 98 08/21/16 04:41 103/72 97 08/21/16 04:30 103/72 98 08/21/16 04:21 107/71 97 08/21/16 04:11 105/76 95 08/21/16 04:00 105/76 97 08/21/16 03:51 102/74 100 08/21/16 03:41 110/80 99 08/21/16 03:30 110/80 99 08/21/16 03:24 97 08/21/16 03:21 97/69 99 08/21/16 03:20 08/21/16 03:11 102/72 100 08/21/16 03:00 102/72 99 08/21/16 02:51 96/64 98 08/21/16 02:41 93/62 100 08/21/16 02:35 93/62 99 08/21/16 02:33 08/21/16 02:30 93/62 99 08/21/16 02:21 101/70 100 08/21/16 02:19 08/21/16 02:11 97/69 100 08/21/16 02:00 97/69 99 08/21/16 01:51 96/61 100 08/21/16 01:41 93/72 100 08/21/16 01:30 93/72 99 17 01:21 97/68 100 08/21/16 01:11 105/72 100 08/21/16 01:00 105/72 100 17 00:51 108/76 99 17 00:41 112/80 100 08/21/16 00:30 112/80 100 1617 00:21 119/78 99 08/21/16 00:11 110/71 98 08/21/16 00:00 110/71 08/20/16 23:51 100/67 17 23:41 99/63 17 23:30 99/63 08/20/16 23:21 101/64 08/20/16 23:11 93/60 08/20/16 23:00 93/60 08/20/16 22:51 98/66 08/20/16 22:41 100/63 08/20/16 22:30 100/63 08/20/16 22:21 95/63 08/20/16 22:11 90/61 08/20/16 22:00 90/61 08/20/16 21:51 98/64 08/20/16 21:41 106/73 08/20/16 21:30 106/73 08/20/16 21:28 08/20/16 21:25 100/70 08/20/16 21:21 100/70 08/20/16 21:11 95/68 08/20/16 21:00 95/68 08/20/16 20:51 96/61 08/20/16 20:45 100/62 96 08/20/16 20:41 100/62 08/20/16 20:38 08/20/16 20:30 100/62 08/20/16 20:28 08/20/16 20:21 95/62 08/20/16 20:11 96/64 08/20/16 20:00 96/64 08/20/16 19:51 90/62 08/20/16 19:49 08/20/16 19:41 95/65 08/20/16 19:33 95/65 08/20/16 19:30 95/65 08/20/16 19:21 99/61 08/20/16 19:11 91/63 08/20/16 19:00 91/63 08/20/16 18:51 96/74 08/20/16 18:41 105/75 08/20/16 18:30 105/75 08/20/16 18:21 95/65 08/20/16 18:11 90/62 08/20/16 18:00 90/62 08/20/16 17:51 104/66 08/20/16 17:41 98/67 08/20/16 17:30 98/67 08/20/16 17:21 102/72 08/20/16 17:11 97/68 08/20/16 17:00 97/68 08/20/16 16:51 103/75 08/20/16 16:41 106/77 08/20/16 16:40 106/77 97 08/20/16 16:30 106/77 08/20/16 16:21 110/77 08/20/16 16:11 101/68 08/20/16 16:00 101/68 08/20/16 15:51 116/80 08/20/16 15:41 117/82 08/20/16 15:31 117/82 100 08/20/16 15:21 105/70 98 08/20/16 15:11 102/70 88 08/20/16 15:00 102/70 86 08/20/16 14:51 102/70 87 08/20/16 14:41 112/68 93 08/20/16 14:30 112/68 97 08/20/16 14:21 102/76 95 08/20/16 14:11 112/74 95 08/20/16 14:01 112/74 95 08/20/16 13:51 115/89 96 08/20/16 13:41 121/81 97 08/20/16 13:33 128/80 08/20/16 13:30 121/81 95 08/20/16 13:21 128/80 96 08/20/16 13:20 08/20/16 13:11 122/85 97 08/20/16 13:00 122/85 93 08/20/16 12:51 113/77 94 08/20/16 12:41 113/79 93 08/20/16 12:30 121/87 95 08/20/16 12:21 113/79 93 08/20/16 12:11 110/89 94 08/20/16 12:01 110/89 90 08/20/16 12:00 08/20/16 11:51 108/81 93 08/20/16 11:41 124/82 87 08/20/16 11:31 124/82 97 08/20/16 11:21 118/89 61 L - Physical Examination General: No Apparent Distress, Other (ill-appearing ) HEENT: Positive: PERRL, Normocephaly, Mucus Membranes Moist Neck: Positive: neck supple, trachea midline Cardiac: Positive: Reg Rate and Rhythm, S3, S4 Neuro: Positive: Grossly Intact, Other (withdrawn, opens eyes to commands, follows commands appropriately. ) Abdomen: Positive: Unremarkable, Soft, Active Bowel Sounds. Negative: Tender Skin: Positive: Clear. Negative: Rash, Wound Musculoskeletal: No Fluid Collection, No Pain, Normal Range of Motion Extremities: Present: normal, upper extr. pulses, lower extr. pulses. Absent: edema - Labs and Meds Coagulation 08/21/16 Range/Units 07:18 PT 16.7 H (12.2-14.9) Sec. INR 1.36 H (0.87-1.13) CBC 08/21/16 Range/Units 07:18 WBC 18.3 H (4.5-11.0) K/mm3 RBC 2.54 L (3.65-5.03) M/mm3 Hgb 7.2 L (11.8-15.2) gm/dl Hct 22.2 L (35.5-45.6) % Plt Count 277 (140-440) K/mm3 Comprehensive Metabolic Panel 08/20/16 08/20/16 08/21/16 Range/Units 17:09 20:06 07:18 Sodium TNR 129 L 132 L Potassium TNR 4.2 4.0 Chloride TNR 95.7 L 99.3 Carbon Dioxide TNR 18 L 17 L BUN TNR 34 H 32 H Creatinine TNR 1.2 1.1 Glucose TNR 121 H 123 H Calcium TNR 7.9 L 7.7 L - Imaging and Cardiology EKG: report reviewed, image reviewed Echo: report reviewed (08/16/2016: severe global hypokinesis, EF 15-20%, mild LHV , mild to moderate MR, moderate TR, minimal pericardial effusion, thrombus in the LV) - EKG Sinus rhythms and dysrhythmias: sinus rhythm Myocardial infarction: anterior OK (acute or rec, lateral OK (acute or rece
--- NOTE | 2016-08-21 11:55 | Progress Note ---
Assessment and Plan Assessment and plan: Acute encephalopathy with altered mental status. Improving. May be secondary to alcohol withdrawal, No localizing signs. He is awake, alert, CT head no stroke. maxillary sinus disease. Continue [facility] protocol. neurochecks. Acute respiratory failure due to pulmonary edema due to cardiomyopathy. Transferred to ICU, supplemental Oxygen, Discussed with tribunal member. Acute systolic heart failure. Continue Dobutamine drip. Lasix IV. Cardiogenic shock. On dobutamine drip. Blood pressure still low. Alcohol withdrawal syndrome. Cont [facility] protocol. Ativan iv prn. He said he drinks 6 pack beer every other day, last drink few days ago. ST elevation on EKG. He was taken to cardiac civil laboratory technician, but had normal coronaries , likely Takotsubo cardiomyopathy. Takotsubo cardiomyopathy. managed by cardiology. Hyponatremia. Improving. Sodium 132 today. Nephrology following. Hyperkalemia. Resolved. Hypotension. improved. d/c iv fluid because very low EF LV thrombus, pedunculated. Continue Heparin drip, Coumadin. INR 1.36 today Full code status History Interval history: patient was confused on admission, less confusion, palpitations, shortness of breath Hospitalist Physical - Physical exam Narrative exam: Gen: Not in acute distress HEENT: Atraumatic, Normocephalic Neck: supple, no JVD Lungs: Bilateral basal rales, no wheeze Heart S1-S2 regular, rapid, no murmurs rubs or gallop, Abdomen: soft, non tender,non-distended, normal bowel sounds Ext: No edema, cyanosis or clubbing Neuro: Awake, alert, oriented to person,place,time, no focal neurological signs - Constitutional Vitals: Temp Pulse Resp BP Pulse Ox 97.3 F L 95 H 41 H 91/67 99 08/21/16 08:00 08/21/16 10:41 08/21/16 10:41 08/21/16 10:41 08/21/16 10:41 General appearance: Present: no acute distress, well-nourished Results - Labs CBC & Chem 7: 08/21/16 07:18 08/21/16 07:18 Labs: Laboratory Last Values WBC 18.3 K/mm3 (4.5-11.0) H 08/21/16 07:18 RBC 2.54 M/mm3 (3.65-5.03) L 08/21/16 07:18 Hgb 7.2 gm/dl (11.8-15.2) L 08/21/16 07:18 Hct 22.2 % (35.5-45.6) L 08/21/16 07:18 MCV 87 fl (84-94) D 08/21/16 07:18 MCH 28 pg (28-32) 08/21/16 07:18 MCHC 32 % (32-34) 08/21/16 07:18 RDW 14.5 % (13.2-15.2) 08/21/16 07:18 Plt Count 277 K/mm3 (140-440) 08/21/16 07:18 Lymph % (Auto) 8.3 % (13.4-35.0) L 08/16/16 16:26 [place] % (Auto) 7.8 % (0.0-7.3) H 08/16/16 16:26 Eos % (Auto) 0.0 % (0.0-4.3) 08/16/16 16:26 Baso % (Auto) 0.1 % (0.0-1.8) 08/16/16 16:26 Lymph # 0.7 K/mm3 (1.2-5.4) L 08/16/16 16:26 [place] # 0.6 K/mm3 (0.0-0.8) 08/16/16 16:26 Eos # 0.0 K/mm3 (0.0-0.4) 08/16/16 16:26 Baso # 0.0 K/mm3 (0.0-0.1) 08/16/16 16:26 Seg Neutrophils % 83.8 % (40.0-70.0) H 08/16/16 16:26 Seg Neutrophils # 7.0 K/mm3 (1.8-7.7) 08/16/16 16:26 PT 16.7 Sec. (12.2-14.9) H 08/21/16 07:18 INR 1.36 (0.87-1.13) H 08/21/16 07:18 APTT 45.2 Sec. (24.2-36.6) H 08/18/16 15:42 Heparin Anti-Xa Level 0.15 U.I./ml (0.3-0.7) L 08/21/16 09:33 POC ABG pH 7.507 (7.35-7.45) H 08/19/16 10:19 POC ABG pCO2 21.9 (35-45) L 08/19/16 10:19 POC ABG pO2 85 (80-105) 08/19/16 10:19 POC ABG HCO3 17.3 08/19/16 10:19 POC ABG Total CO2 18 08/19/16 10:19 POC ABG O2 Sat 98 08/19/16 10:19 POC ABG Base Excess -6 08/19/16 10:19 FiO2 35 % 08/19/16 10:19 Sodium 132 mmol/L (137-145) L 08/21/16 07:18 Potassium 4.0 mmol/L (3.6-5.0) 08/21/16 07:18 Chloride 99.3 mmol/L (98-107) 08/21/16 07:18 Carbon Dioxide 17 mmol/L (22-30) L 08/21/16 07:18 Anion Gap 20 mmol/L 08/21/16 07:18 BUN 32 mg/dL (9-20) H 08/21/16 07:18 Creatinine 1.1 mg/dL (0.8-1.5) 08/21/16 07:18 Estimated GFR > 60 ml/min 08/21/16 07:18 BUN/Creatinine Ratio 29.09 % 08/21/16 07:18 Glucose 123 mg/dL (75-100) H 08/21/16 07:18 POC Glucose 120 (70-105) H 08/20/16 17:29 Calcium 7.7 mg/dL (8.4-10.2) L 08/21/16 07:18 Phosphorus 4.1 mg/dL (2.5-4.5) 08/20/16 05:19 Magnesium 2.6 mg/dL (1.7-2.3) H 08/20/16 05:19 Total Bilirubin 1.1 mg/dL (0.1-1.2) 08/18/16 08:33 AST 152 units/L (5-40) H 08/18/16 08:33 ALT 38 units/L (7-56) 08/18/16 08:33 Alkaline Phosphatase 175 units/L (35-129) H 08/18/16 08:33 Total Creatine Kinase 144 units/L (55-170) 08/17/16 08:42 CK-MB (CK-2) 6.9 ng/mL (0.0-4.0) H 08/17/16 08:42 CK-MB (CK-2) Rel Index 4.7 (0-4) H 08/17/16 08:42 Troponin T 0.590 ng/mL (0.00-0.029) H* 08/17/16 08:42 NT-Pro-B Natriuret Pep 6736 pg/mL (0-900) H 08/19/16 06:20 Total Protein 5.6 g/dL (6.3-8.2) L 08/18/16 08:33 Albumin 1.9 g/dL (3.9-5) L 08/18/16 08:33 Albumin/Globulin Ratio 0.5 % 08/18/16 08:33 Triglycerides 184 mg/dL (2-149) H 08/16/16 16:26 Cholesterol 130 mg/dL (50-199) 08/16/16 16:26 LDL Cholesterol Direct 77 mg/dL (50-130) 08/16/16 16:26 HDL Cholesterol 12 mg/dL (40-59) L 08/16/16 16:26 Cholesterol/HDL Ratio 10.83 % 08/16/16 16:26 Urine Color [place] (Yellow) 08/17/16 12:24 Urine Turbidity Clear (Clear) 08/17/16 12:24 Urine pH 5.0 (5.0-7.0) 08/17/16 12:24 Ur Specific [place] 1.034 (1.003-1.030) H 08/17/16 12:24 Urine Protein 100 mg/dl mg/dL (Negative) 08/17/16 12:24 Urine Glucose (UA) Neg mg/dL (Negative) 08/17/16 12:24 Urine Ketones Neg mg/dL (Negative) 08/17/16 12:24 Urine Blood Neg (Negative) 08/17/16 12:24 Urine Nitrite Neg (Negative) 08/17/16 12:24 Urine Bilirubin Neg (Negative) 08/17/16 12:24 Urine Urobilinogen 4.0 mg/dL (<2.0) 08/17/16 12:24 Ur Leukocyte Esterase Neg (Negative) 08/17/16 12:24 Urine Osmolality 552 Mosm/kg 08/17/16 12:24 Urine Creatinine 220.8 mg/dL (0.1-20.0) H 08/17/16 12:24 Urine Sodium 10 mEq/L 08/17/16 12:24 Urine Chloride 10.0 mEq/L (110-250) L 08/17/16 12:24 Urine Opiates Screen Presumptive negative 08/16/16 21:00 Urine Methadone Screen Presumptive negative 08/16/16 21:00 Ur Barbiturates Screen Presumptive negative 08/16/16 21:00 Ur Phencyclidine Scrn Presumptive negative 08/16/16 21:00 Ur Amphetamines Screen Presumptive negative 08/16/16 21:00 U Benzodiazepines Scrn Presumptive negative 08/16/16 21:00 Urine Cocaine Screen Presumptive negative 08/16/16 21:00 U Marijuana (THC) Screen Presumptive negative 08/16/16 21:00 Drugs of Abuse Note Disclamer 08/16/16 21:00
[2016-08-21] MEDS ORDERED: LASIX IV ONE (13:05)
--- NOTE | 2016-08-21 14:01 | Progress Note ---
Assessment and Plan 55 y/o male with acute MO and systolic heart failure, now with acute respiratory failure, most likely secondary to volume overload but concern for cardiogenic shock 1. Lasix 20mg IV x1 given now, then can do the 40 IV BID ordered by them. Would not have gotten 1st dose until tonight. 2. continue Dobutamine and now on coreg and scheduled lasix 3. Bipap QHS and PRN. I increased him to 20/10 and 50%. 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 Asked nursing to place/replace ear probe. Will repeat CXR 4. Elevated white count appears to be nonspecific, no fever and today is lower. Hold on abx therapy as of now. Subjective Date of service: 08/21/16 Principal diagnosis: AMS; CMP Interval history: Became tachypnic this am. RR in the 40's. Placed on bipap. Per nursing, did get lasix yesterday. Spoke with nursing about administering lasix 20mg IV now. Objective Vital Signs - 12hr 08/21/16 08/21/16 08/21/16 02:00 02:11 02:19 Temperature Pulse Rate 105 H 110 H Pulse Rate [ 106 H Anterior Bilateral Throughout] Pulse Rate [ Apical] Pulse Rate [ From Monitor] Respiratory 27 H 35 H Rate Respiratory 24 Rate [Anterior Bilateral Throughout] Blood Pressure 97/69 97/69 O2 Sat by Pulse 99 100 Oximetry 08/21/16 08/21/16 08/21/16 02:21 02:30 02:33 Temperature Pulse Rate 108 H 103 H Pulse Rate [ 99 H Anterior Bilateral Throughout] Pulse Rate [ Apical] Pulse Rate [ From Monitor] Respiratory 33 H 28 H Rate Respiratory 20 Rate [Anterior Bilateral Throughout] Blood Pressure 101/70 93/62 O2 Sat by Pulse 100 99 Oximetry 08/21/16 08/21/16 08/21/16 02:35 02:41 02:51 Temperature Pulse Rate 106 H 105 H 105 H Pulse Rate [ Anterior Bilateral Throughout] Pulse Rate [ Apical] Pulse Rate [ From Monitor] Respiratory 27 H 29 H 18 Rate Respiratory Rate [Anterior Bilateral Throughout] Blood Pressure 93/62 93/62 96/64 O2 Sat by Pulse 99 100 98 Oximetry 08/21/16 08/21/16 08/21/16 03:00 03:11 03:20 Temperature Pulse Rate 104 H 107 H 104 H Pulse Rate [ Anterior Bilateral Throughout] Pulse Rate [ Apical] Pulse Rate [ From Monitor] Respiratory 25 H 35 H Rate Respiratory Rate [Anterior Bilateral Throughout] Blood Pressure 102/72 102/72 O2 Sat by Pulse 99 100 Oximetry 08/21/16 08/21/16 08/21/16 03:21 03:24 03:30 Temperature Pulse Rate 103 H 109 H Pulse Rate [ Anterior Bilateral Throughout] Pulse Rate [ 104 H Apical] Pulse Rate [ 104 H From Monitor] Respiratory 19 25 H 34 H Rate Respiratory Rate [Anterior Bilateral Throughout] Blood Pressure 97/69 110/80 O2 Sat by Pulse 99 97 99 Oximetry 08/21/16 08/21/16 08/21/16 03:41 03:51 04:00 Temperature 100.7 F H Pulse Rate 106 H 110 H 108 H Pulse Rate [ Anterior Bilateral Throughout] Pulse Rate [ Apical] Pulse Rate [ From Monitor] Respiratory 31 H 38 H 26 H Rate Respiratory Rate [Anterior Bilateral Throughout] Blood Pressure 110/80 102/74 105/76 O2 Sat by Pulse 99 100 97 Oximetry 08/21/16 08/21/16 08/21/16 04:11 04:21 04:30 Temperature Pulse Rate 107 H 108 H 107 H Pulse Rate [ Anterior Bilateral Throughout] Pulse Rate [ Apical] Pulse Rate [ From Monitor] Respiratory 29 H 30 H 19 Rate Respiratory Rate [Anterior Bilateral Throughout] Blood Pressure 105/76 107/71 103/72 O2 Sat by Pulse 95 97 98 Oximetry 08/21/16 08/21/16 08/21/16 04:41 04:51 05:00 Temperature Pulse Rate 110 H 108 H 111 H Pulse Rate [ Anterior Bilateral Throughout] Pulse Rate [ Apical] Pulse Rate [ From Monitor] Respiratory 25 H 28 H 31 H Rate Respiratory Rate [Anterior Bilateral Throughout] Blood Pressure 103/72 113/79 107/76 O2 Sat by Pulse 97 98 98 Oximetry 08/21/16 08/21/16 08/21/16 05:11 05:21 05:30 Temperature Pulse Rate 110 H 110 H 112 H Pulse Rate [ Anterior Bilateral Throughout] Pulse Rate [ Apical] Pulse Rate [ From Monitor] Respiratory 36 H 24 33 H Rate Respiratory Rate [Anterior Bilateral Throughout] Blood Pressure 107/76 116/77 119/85 O2 Sat by Pulse 98 98 98 Oximetry 08/21/16 08/21/16 08/21/16 05:41 05:51 06:00 Temperature Pulse Rate 112 H 110 H 103 H Pulse Rate [ Anterior Bilateral Throughout] Pulse Rate [ Apical] Pulse Rate [ From Monitor] Respiratory 27 H 30 H 33 H Rate Respiratory Rate [Anterior Bilateral Throughout] Blood Pressure 119/85 106/73 88/55 O2 Sat by Pulse 97 99 100 Oximetry 08/21/16 08/21/16 08/21/16 06:11 06:20 06:30 Temperature Pulse Rate 102 H 100 H 99 H Pulse Rate [ Anterior Bilateral Throughout] Pulse Rate [ Apical] Pulse Rate [ From Monitor] Respiratory 29 H 30 H 29 H Rate Respiratory Rate [Anterior Bilateral Throughout] Blood Pressure 88/55 87/54 91/56 O2 Sat by Pulse 100 100 100 Oximetry 08/21/16 08/21/16 08/21/16 06:41 06:51 07:00 Temperature Pulse Rate 97 H 96 H 88 Pulse Rate [ Anterior Bilateral Throughout] Pulse Rate [ Apical] Pulse Rate [ From Monitor] Respiratory 21 28 H 28 H Rate Respiratory Rate [Anterior Bilateral Throughout] Blood Pressure 87/54 88/58 78/53 O2 Sat by Pulse 100 99 100 Oximetry 08/21/16 08/21/16 08/21/16 07:11 07:21 07:30 Temperature Pulse Rate 93 H 87 91 H Pulse Rate [ Anterior Bilateral Throughout] Pulse Rate [ Apical] Pulse Rate [ From Monitor] Respiratory 36 H 30 H 24 Rate Respiratory Rate [Anterior Bilateral Throughout] Blood Pressure 91/56 88/58 97/67 O2 Sat by Pulse 99 100 100 Oximetry 08/21/16 08/21/16 08/21/16 07:40 07:41 07:50 Temperature Pulse Rate 87 Pulse Rate [ 103 H 102 H Anterior Bilateral Throughout] Pulse Rate [ Apical] Pulse Rate [ From Monitor] Respiratory 27 H Rate Respiratory 18 18 Rate [Anterior Bilateral Throughout] Blood Pressure 97/67 O2 Sat by Pulse 100 Oximetry 08/21/16 08/21/16 08/21/16 07:51 08:00 08:11 Temperature 97.3 F L Pulse Rate 96 H 102 H 106 H Pulse Rate [ Anterior Bilateral Throughout] Pulse Rate [ Apical] Pulse Rate [ From Monitor] Respiratory 34 H 32 H 22 Rate Respiratory Rate [Anterior Bilateral Throughout] Blood Pressure 100/70 112/83 112/83 O2 Sat by Pulse 100 100 98 Oximetry 08/21/16 08/21/16 08/21/16 08:21 08:31 08:41 Temperature Pulse Rate 104 H 103 H 104 H Pulse Rate [ Anterior Bilateral Throughout] Pulse Rate [ Apical] Pulse Rate [ From Monitor] Respiratory 21 29 H 26 H Rate Respiratory Rate [Anterior Bilateral Throughout] Blood Pressure 121/87 108/72 108/72 O2 Sat by Pulse 98 98 97 Oximetry 08/21/16 08/21/16 08/21/16 08:51 09:01 09:11 Temperature Pulse Rate 104 H 100 H 100 H Pulse Rate [ Anterior Bilateral Throughout] Pulse Rate [ Apical] Pulse Rate [ From Monitor] Respiratory 30 H 32 H 28 H Rate Respiratory Rate [Anterior Bilateral Throughout] Blood Pressure 108/72 100/70 100/70 O2 Sat by Pulse 98 98 97 Oximetry 08/21/16 08/21/16 08/21/16 09:21 09:30 09:41 Temperature Pulse Rate 99 H 99 H 94 H Pulse Rate [ Anterior Bilateral Throughout] Pulse Rate [ Apical] Pulse Rate [ From Monitor] Respiratory 29 H 34 H 38 H Rate Respiratory Rate [Anterior Bilateral Throughout] Blood Pressure 89/58 93/63 89/58 O2 Sat by Pulse 100 100 99 Oximetry 08/21/16 08/21/16 08/21/16 09:51 10:00 10:11 Temperature Pulse Rate 100 H 94 H 92 H Pulse Rate [ Anterior Bilateral Throughout] Pulse Rate [ Apical] Pulse Rate [ From Monitor] Respiratory 34 H 41 H 33 H Rate Respiratory Rate [Anterior Bilateral Throughout] Blood Pressure 89/60 81/56 81/56 O2 Sat by Pulse 100 98 100 Oximetry 08/21/16 08/21/16 08/21/16 10:21 10:30 10:41 Temperature Pulse Rate 97 H 97 H 95 H Pulse Rate [ Anterior Bilateral Throughout] Pulse Rate [ Apical] Pulse Rate [ From Monitor] Respiratory 32 H 35 H 41 H Rate Respiratory Rate [Anterior Bilateral Throughout] Blood Pressure 91/65 91/67 91/67 O2 Sat by Pulse 99 99 99 Oximetry 08/21/16 08/21/16 08/21/16 10:51 11:00 11:11 Temperature Pulse Rate 101 H 101 H 98 H Pulse Rate [ Anterior Bilateral Throughout] Pulse Rate [ Apical] Pulse Rate [ From Monitor] Respiratory 36 H 43 H 20 Rate Respiratory Rate [Anterior Bilateral Throughout] Blood Pressure 96/66 97/74 97/74 O2 Sat by Pulse 99 98 Oximetry 08/21/16 08/21/1617 11:21 11:30 11:41 Temperature Pulse Rate 98 H 98 H 99 H Pulse Rate [ Anterior Bilateral Throughout] Pulse Rate [ Apical] Pulse Rate [ From Monitor] Respiratory 46 H 24 32 H Rate Respiratory Rate [Anterior Bilateral Throughout] Blood Pressure 93/60 95/71 95/71 O2 Sat by Pulse Oximetry 08/21/16 08/21/16 08/21/16 11:51 12:00 12:11 Temperature 97.6 F Pulse Rate 98 H 100 H 99 H Pulse Rate [ Anterior Bilateral Throughout] Pulse Rate [ Apical] Pulse Rate [ From Monitor] Respiratory 22 32 H 40 H Rate Respiratory Rate [Anterior Bilateral Throughout] Blood Pressure 104/74 91/63 91/63 O2 Sat by Pulse Oximetry 08/21/16 08/21/16 08/21/16 12:21 12:31 12:41 Temperature Pulse Rate 103 H 104 H 103 H Pulse Rate [ Anterior Bilateral Throughout] Pulse Rate [ Apical] Pulse Rate [ From Monitor] Respiratory 29 H 25 H 20 Rate Respiratory Rate [Anterior Bilateral Throughout] Blood Pressure 91/69 90/58 90/58 O2 Sat by Pulse Oximetry 08/21/16 08/21/16 13:00 13:13 Temperature Pulse Rate 104 H Pulse Rate [ 103 H 103 H Anterior Bilateral Throughout] Pulse Rate [ Apical] Pulse Rate [ From Monitor] Respiratory 42 H Rate Respiratory 22 28 H Rate [Anterior Bilateral Throughout] Blood Pressure 107/71 O2 Sat by Pulse 82 L Oximetry Constitutional: no acute distress, alert Eyes: non-icteric ENT: oropharynx moist Neck: supple Ascultation: Bilateral: rales (Worse today) Percussion: Bilateral: not dull Cardiovascular: other (tachy) Gastrointestinal: normoactive bowel sounds Extremities: other (Left arm swollen and bilateral lower ext edema) CBC and BMP: 08/21/16 07:18 08/21/16 07:18 ABG, PT/INR, D-dimer: ABG POC ABG pH 7.507 (7.35-7.45) H 08/19/16 10:19 POC ABG pCO2 21.9 (35-45) L 08/19/16 10:19 POC ABG pO2 85 (80-105) 08/19/16 10:19 POC ABG HCO3 17.3 08/19/16 10:19 POC ABG Total CO2 18 08/19/16 10:19 POC ABG O2 Sat 98 08/19/16 10:19 PT/INR, D-dimer PT 16.7 Sec. (12.2-14.9) H 08/21/16 07:18 INR 1.36 (0.87-1.13) H 08/21/16 07:18 Abnormal lab findings: Abnormal Labs 08/16/16 08/16/16 08/16/16 16:26 16:26 20:49 WBC RBC 2.84 L Hgb 8.3 L Hct 24.7 L MCHC Lymph % (Auto) 8.3 L [place] % (Auto) 7.8 H Lymph # 0.7 L Seg Neutrophils % 83.8 H PT INR APTT Heparin Anti-Xa Level POC ABG pH POC ABG pCO2 Sodium 122 L Potassium Chloride 87.8 L Carbon Dioxide 19 L BUN Creatinine Glucose 126 H POC Glucose Calcium 7.7 L Magnesium AST Alkaline Phosphatase CK-MB (CK-2) CK-MB (CK-2) Rel Index Troponin T 0.695 H* 0.703 H* NT-Pro-B Natriuret Pep Total Protein Albumin Triglycerides 184 H HDL Cholesterol 12 L Ur Specific [place] Urine Creatinine Urine Chloride 08/16/16 08/17/16 08/17/16 20:50 04:58 08:42 WBC RBC Hgb Hct MCHC Lymph % (Auto) [place] % (Auto) Lymph # Seg Neutrophils % PT INR APTT Heparin Anti-Xa Level POC ABG pH POC ABG pCO2 Sodium 125 L 128 L Potassium Chloride 89.9 L 92.5 L Carbon Dioxide 18 L 19 L BUN 21 H Creatinine Glucose 108 H 105 H POC Glucose Calcium 7.7 L 7.5 L Magnesium AST Alkaline Phosphatase CK-MB (CK-2) 6.9 H CK-MB (CK-2) Rel Index 4.7 H Troponin T 0.590 H* NT-Pro-B Natriuret Pep Total Protein Albumin Triglycerides HDL Cholesterol Ur Specific [place] Urine Creatinine Urine Chloride 08/17/16 08/17/16 08/17/16 12:24 12:24 16:06 WBC RBC Hgb Hct MCHC Lymph % (Auto) [place] % (Auto) Lymph # Seg Neutrophils % PT INR APTT Heparin Anti-Xa Level POC ABG pH POC ABG pCO2 Sodium 127 L Potassium Chloride 91.9 L Carbon Dioxide 16 L BUN 28 H Creatinine Glucose POC Glucose Calcium 7.4 L Magnesium AST Alkaline Phosphatase CK-MB (CK-2) CK-MB (CK-2) Rel Index Troponin T NT-Pro-B Natriuret Pep Total Protein Albumin Triglycerides HDL Cholesterol Ur Specific [place] 1.034 H Urine Creatinine 220.8 H Urine Chloride 10.0 L 08/17/16 08/18/16 08/18/16 23:50 04:12 05:29 WBC RBC Hgb Hct MCHC Lymph % (Auto) [place] % (Auto) Lymph # Seg Neutrophils % PT INR APTT Heparin Anti-Xa Level POC ABG pH POC ABG pCO2 Sodium 129 L Potassium Chloride 96.5 L Carbon Dioxide 15 L BUN 43 H Creatinine 1.7 H Glucose 115 H POC Glucose 126 H 121 H Calcium 7.4 L Magnesium AST Alkaline Phosphatase CK-MB (CK-2) CK-MB (CK-2) Rel Index Troponin T NT-Pro-B Natriuret Pep Total Protein Albumin Triglycerides HDL Cholesterol Ur Specific [place] Urine Creatinine Urine Chloride 08/18/16 08/18/16 08/18/16 08:33 12:00 13:18 WBC RBC Hgb Hct MCHC Lymph % (Auto) [place] % (Auto) Lymph # Seg Neutrophils % PT 16.3 H INR 1.32 H APTT 185.1 H* Heparin Anti-Xa Level POC ABG pH POC ABG pCO2 Sodium 128 L Potassium 5.2 H Chloride 96.0 L Carbon Dioxide 16 L BUN 44 H Creatinine 1.7 H Glucose 109 H POC Glucose 125 H Calcium 7.3 L Magnesium AST 152 H Alkaline Phosphatase 175 H CK-MB (CK-2) CK-MB (CK-2) Rel Index Troponin T NT-Pro-B Natriuret Pep Total Protein 5.6 L Albumin 1.9 L Triglycerides HDL Cholesterol Ur Specific [place] Urine Creatinine Urine Chloride 08/18/16 08/18/16 08/18/16 15:42 15:42 20:38 WBC RBC Hgb Hct MCHC Lymph % (Auto) [place] % (Auto) Lymph # Seg Neutrophils % PT INR APTT 45.2 H Heparin Anti-Xa Level < 0.10 L POC ABG pH POC ABG pCO2 Sodium 128 L Potassium Chloride 95.8 L Carbon Dioxide 16 L BUN 49 H Creatinine 1.7 H Glucose 137 H POC Glucose Calcium 7.3 L Magnesium AST Alkaline Phosphatase CK-MB (CK-2) CK-MB (CK-2) Rel Index Troponin T NT-Pro-B Natriuret Pep Total Protein Albumin Triglycerides HDL Cholesterol Ur Specific [place] Urine Creatinine Urine Chloride 08/19/16 08/19/16 08/19/16 06:20 06:20 06:20 WBC RBC Hgb Hct MCHC Lymph % (Auto) [place] % (Auto) Lymph # Seg Neutrophils % PT INR APTT Heparin Anti-Xa Level 0.12 L POC ABG pH POC ABG pCO2 Sodium 128 L Potassium Chloride 95.9 L Carbon Dioxide 15 L BUN 49 H Creatinine Glucose 116 H POC Glucose Calcium 7.4 L Magnesium AST Alkaline Phosphatase CK-MB (CK-2) CK-MB (CK-2) Rel Index Troponin T NT-Pro-B Natriuret Pep 6736 H Total Protein Albumin Triglycerides HDL Cholesterol Ur Specific [place] Urine Creatinine Urine Chloride 08/19/16 08/19/16 08/19/16 10:04 10:19 11:33 WBC RBC Hgb Hct MCHC Lymph % (Auto) [place] % (Auto) Lymph # Seg Neutrophils % PT INR APTT Heparin Anti-Xa Level POC ABG pH 7.507 H POC ABG pCO2 21.9 L Sodium Potassium Chloride Carbon Dioxide BUN Creatinine Glucose POC Glucose 108 H 135 H Calcium Magnesium AST Alkaline Phosphatase CK-MB (CK-2) CK-MB (CK-2) Rel Index Troponin T NT-Pro-B Natriuret Pep Total Protein Albumin Triglycerides HDL Cholesterol Ur Specific [place] Urine Creatinine Urine Chloride 08/19/16 08/19/16 08/19/16 14:31 17:47 17:56 WBC RBC Hgb Hct MCHC Lymph % (Auto) [place] % (Auto) Lymph # Seg Neutrophils % PT INR APTT Heparin Anti-Xa Level > 1.90 H POC ABG pH POC ABG pCO2 Sodium 120 L D Potassium Chloride 89.6 L Carbon Dioxide 14 L BUN 37 H Creatinine Glucose POC Glucose 110 H Calcium 6.0 L D Magnesium AST Alkaline Phosphatase CK-MB (CK-2) CK-MB (CK-2) Rel Index Troponin T NT-Pro-B Natriuret Pep Total Protein Albumin Triglycerides HDL Cholesterol Ur Specific [place] Urine Creatinine Urine Chloride 08/20/16 08/20/16 08/20/16 00:21 05:19 05:19 WBC 22.7 H RBC 2.92 L Hgb 8.2 L Hct 26.2 L MCHC 31 L Lymph % (Auto) [place] % (Auto) Lymph # Seg Neutrophils % PT 15.1 H INR 1.20 H APTT Heparin Anti-Xa Level < 0.10 L POC ABG pH POC ABG pCO2 Sodium Potassium Chloride Carbon Dioxide BUN Creatinine Glucose POC Glucose Calcium Magnesium AST Alkaline Phosphatase CK-MB (CK-2) CK-MB (CK-2) Rel Index Troponin T NT-Pro-B Natriuret Pep Total Protein Albumin Triglycerides HDL Cholesterol Ur Specific [place] Urine Creatinine Urine Chloride 08/20/16 08/20/16 08/20/16 05:19 12:34 17:29 WBC RBC Hgb Hct MCHC Lymph % (Auto) [place] % (Auto) Lymph # Seg Neutrophils % PT INR APTT Heparin Anti-Xa Level POC ABG pH POC ABG pCO2 Sodium 132 L D Potassium Chloride Carbon Dioxide 17 L BUN 39 H Creatinine Glucose 131 H POC Glucose 124 H 120 H Calcium 7.8 L D Magnesium 2.6 H AST Alkaline Phosphatase CK-MB (CK-2) CK-MB (CK-2) Rel Index Troponin T NT-Pro-B Natriuret Pep Total Protein Albumin Triglycerides HDL Cholesterol Ur Specific [place] Urine Creatinine Urine Chloride 08/20/16 08/21/16 08/21/16 20:06 07:18 07:18 WBC RBC Hgb Hct MCHC Lymph % (Auto) [place] % (Auto) Lymph # Seg Neutrophils % PT 16.7 H INR 1.36 H APTT Heparin Anti-Xa Level POC ABG pH POC ABG pCO2 Sodium 129 L 132 L Potassium Chloride 95.7 L Carbon Dioxide 18 L 17 L BUN 34 H 32 H Creatinine Glucose 121 H 123 H POC Glucose Calcium 7.9 L 7.7 L Magnesium AST Alkaline Phosphatase CK-MB (CK-2) CK-MB (CK-2) Rel Index Troponin T NT-Pro-B Natriuret Pep Total Protein Albumin Triglycerides HDL Cholesterol Ur Specific [place] Urine Creatinine Urine Chloride 08/21/16 08/21/16 07:18 09:33 WBC 18.3 H RBC 2.54 L Hgb 7.2 L Hct 22.2 L MCHC Lymph % (Auto) [place] % (Auto) Lymph # Seg Neutrophils % PT INR APTT Heparin Anti-Xa Level 0.15 L POC ABG pH POC ABG pCO2 Sodium Potassium Chloride Carbon Dioxide BUN Creatinine Glucose POC Glucose Calcium Magnesium AST Alkaline Phosphatase CK-MB (CK-2) CK-MB (CK-2) Rel Index Troponin T NT-Pro-B Natriuret Pep Total Protein Albumin Triglycerides HDL Cholesterol Ur Specific [place] Urine Creatinine Urine Chloride
[2016-08-21] MEDS: ATIVAN IV PRN (14:22)
--- NOTE | 2016-08-21 15:22 | XRay Report ---
FINAL REPORT PROCEDURE: XR CHEST 1V AP TECHNIQUE: Chest radiograph anteroposterior view. CPT 80001 HISTORY: tachypnea, with CHF COMPARISON: No prior studies are available for comparison. FINDINGS: Probable CHF is present with small pleural effusions likely. Slightly rounded densities seen in the region of the left lingula but this is probably atelectasis. PA and lateral view x-ray follow-up following treatment may be useful. IMPRESSION: CHF is suspected with small pleural effusions. There is round density in the left lingula which could be fluid in the pulmonary fissure or focal atelectasis. Pulmonary nodule is not excluded. Follow-up PA and lateral views of the chest may be useful following treatment for CHF.
[2016-08-21 16:51] LABS: Anion Gap 24 mmol/L; Blood Urea Nitrogen 33 mg/dL (9-20); Calcium 8.2 mg/dL (8.4-10.2); Carbon Dioxide 14 mmol/L (22-30); Chloride 98.7 mmol/L (98-107); Glucose 139 mg/dL (75-100); Sodium 131 mmol/L (137-145)
[2016-08-21] MEDS ORDERED: COUMADIN PO SCH (17:00)
[2016-08-21 17:05] LABS: Potassium 5.3 mmol/L (3.6-5.0)
[2016-08-21] MEDS: LASIX IV SCH (17:26)
[2016-08-21] MEDS: COUMADIN PO SCH (17:26)
[2016-08-21] MEDS ORDERED: HEPARIN 10,000 UNITS/10 ML IV ONE (22:25)
[2016-08-22] MEDS: HEPARIN/ 0.45% NACL-25,000 UNIT/500 ML 25,000 UNITS/500 ML BAG IV SCH ×2 (01:13→15:17)
[2016-08-22] MEDS: DUONEB 0.5 MG-3 MG/3 ML SOLN IH SCH ×4 (01:42→22:34)
[2016-08-22] MEDS: LASIX IV SCH ×2 (05:09→17:03)
[2016-08-22] MEDS: DOBUTREX DRIP 500MG/D5W 250ML 500 MG/250 ML BAG IV SCH (05:17)
[2016-08-22 05:59] LABS: Hematocrit 24.7 % (35.5-45.6); Hemoglobin 7.8 gm/dl (11.8-15.2)
[2016-08-22 06:09] LABS: INR 1.47 (0.87-1.13)
[2016-08-22 06:21] LABS: Anion Gap 20 mmol/L; BUN/Creatinine Ratio 26.15; Blood Urea Nitrogen 34 mg/dL (9-20); Calcium 8.3 mg/dL (8.4-10.2); Carbon Dioxide 18 mmol/L (22-30); Chloride 99.4 mmol/L (98-107); Glucose 136 mg/dL (75-100); Potassium 4.5 mmol/L (3.6-5.0); Sodium 133 mmol/L (137-145)
--- NOTE | 2016-08-22 08:54 | Progress Note ---
Assessment and Plan Assessment and plan: Acute encephalopathy with altered mental status. Improving. May be secondary to alcohol withdrawal, No localizing signs. He is awake, alert, CT head - no stroke. maxillary sinus disease. Continue [facility] protocol. neurochecks. Will obtain MRI Brain. Acute respiratory failure due to pulmonary edema due to cardiomyopathy. Transferred to ICU, supplemental Oxygen, Discussed with electrical and radio mock up mechanic. Acute systolic heart failure. Continue Dobutamine drip. Lasix IV. Coreg low dose. Cardiogenic shock. On dobutamine drip. Blood pressure still low. Alcohol withdrawal syndrome. Cont [facility] protocol. Ativan iv prn. He said he drinks 6 pack beer every other day, last drink few days ago. ST elevation on EKG. He was taken to cardiac lab specialist, but had normal coronaries , likely Takotsubo cardiomyopathy. Takotsubo cardiomyopathy. managed by cardiology. Hyponatremia. Improving. Sodium 133 today. Nephrology following. Hyperkalemia. Resolved. Hypotension. improved. d/c iv fluid because very low EF LV thrombus, pedunculated. Continue Heparin drip and Coumadin. INR 1.47 today Full code status History Interval history: patient was confused on admission, less confusion, still having palpitations, shortness of breath, low blood pressure Hospitalist Physical - Physical exam Narrative exam: Gen: Not in acute distress HEENT: Atraumatic, Normocephalic Neck: supple, no JVD Lungs: Bilateral basal rales, no wheeze Heart S1-S2 regular, rapid, no murmurs rubs or gallop, Abdomen: soft, non tender,non-distended, normal bowel sounds Ext: No edema, cyanosis or clubbing Neuro: Awake, alert, oriented to person,place,time, mild confusion,no focal neurological signs - Constitutional Vitals: Temp Pulse Resp BP Pulse Ox 97 F L 95 H 27 H 94/66 100 08/22/16 03:59 08/22/16 07:27 08/22/16 07:27 08/22/16 07:13 08/22/16 07:13 General appearance: Present: well-nourished Results - Labs CBC & Chem 7: 08/22/16 04:29 08/22/16 04:29 Labs: Laboratory Last Values WBC 18.3 K/mm3 (4.5-11.0) H 08/21/16 07:18 RBC 2.54 M/mm3 (3.65-5.03) L 08/21/16 07:18 Hgb 7.8 gm/dl (11.8-15.2) L 08/22/16 04:29 Hct 24.7 % (35.5-45.6) L 08/22/16 04:29 MCV 87 fl (84-94) D 08/21/16 07:18 MCH 28 pg (28-32) 08/21/16 07:18 MCHC 32 % (32-34) 08/21/16 07:18 RDW 14.5 % (13.2-15.2) 08/21/16 07:18 Plt Count 277 K/mm3 (140-440) 08/22/16 04:29 Lymph % (Auto) 8.3 % (13.4-35.0) L 08/16/16 16:26 [place] % (Auto) 7.8 % (0.0-7.3) H 08/16/16 16:26 Eos % (Auto) 0.0 % (0.0-4.3) 08/16/16 16:26 Baso % (Auto) 0.1 % (0.0-1.8) 08/16/16 16:26 Lymph # 0.7 K/mm3 (1.2-5.4) L 08/16/16 16:26 [place] # 0.6 K/mm3 (0.0-0.8) 08/16/16 16:26 Eos # 0.0 K/mm3 (0.0-0.4) 08/16/16 16:26 Baso # 0.0 K/mm3 (0.0-0.1) 08/16/16 16:26 Seg Neutrophils % 83.8 % (40.0-70.0) H 08/16/16 16:26 Seg Neutrophils # 7.0 K/mm3 (1.8-7.7) 08/16/16 16:26 PT 17.8 Sec. (12.2-14.9) H 08/22/16 04:29 INR 1.47 (0.87-1.13) H 08/22/16 04:29 APTT 45.2 Sec. (24.2-36.6) H 08/18/16 15:42 Heparin Anti-Xa Level 0.12 U.I./ml (0.3-0.7) L 08/22/16 04:29 POC ABG pH 7.507 (7.35-7.45) H 08/19/16 10:19 POC ABG pCO2 21.9 (35-45) L 08/19/16 10:19 POC ABG pO2 85 (80-105) 08/19/16 10:19 POC ABG HCO3 17.3 08/19/16 10:19 POC ABG Total CO2 18 08/19/16 10:19 POC ABG O2 Sat 98 08/19/16 10:19 POC ABG Base Excess -6 08/19/16 10:19 FiO2 35 % 08/19/16 10:19 Sodium 133 mmol/L (137-145) L 08/22/16 04:29 Potassium 4.5 mmol/L (3.6-5.0) 08/22/16 04:29 Chloride 99.4 mmol/L (98-107) 08/22/16 04:29 Carbon Dioxide 18 mmol/L (22-30) L 08/22/16 04:29 Anion Gap 20 mmol/L 08/22/16 04:29 BUN 34 mg/dL (9-20) H 08/22/16 04:29 Creatinine 1.3 mg/dL (0.8-1.5) 08/22/16 04:29 Estimated GFR > 60 ml/min 08/22/16 04:29 BUN/Creatinine Ratio 26.15 % 08/22/16 04:29 Glucose 136 mg/dL (75-100) H 08/22/16 04:29 POC Glucose 120 (70-105) H 08/20/16 17:29 Calcium 8.3 mg/dL (8.4-10.2) L 08/22/16 04:29 Phosphorus 4.1 mg/dL (2.5-4.5) 08/20/16 05:19 Magnesium 2.6 mg/dL (1.7-2.3) H 08/20/16 05:19 Total Bilirubin 1.1 mg/dL (0.1-1.2) 08/18/16 08:33 AST 152 units/L (5-40) H 08/18/16 08:33 ALT 38 units/L (7-56) 08/18/16 08:33 Alkaline Phosphatase 175 units/L (35-129) H 08/18/16 08:33 Total Creatine Kinase 144 units/L (55-170) 08/17/16 08:42 CK-MB (CK-2) 6.9 ng/mL (0.0-4.0) H 08/17/16 08:42 CK-MB (CK-2) Rel Index 4.7 (0-4) H 08/17/16 08:42 Troponin T 0.590 ng/mL (0.00-0.029) H* 08/17/16 08:42 NT-Pro-B Natriuret Pep 6736 pg/mL (0-900) H 08/19/16 06:20 Total Protein 5.6 g/dL (6.3-8.2) L 08/18/16 08:33 Albumin 1.9 g/dL (3.9-5) L 08/18/16 08:33 Albumin/Globulin Ratio 0.5 % 08/18/16 08:33 Triglycerides 184 mg/dL (2-149) H 08/16/16 16:26 Cholesterol 130 mg/dL (50-199) 08/16/16 16:26 LDL Cholesterol Direct 77 mg/dL (50-130) 08/16/16 16:26 HDL Cholesterol 12 mg/dL (40-59) L 08/16/16 16:26 Cholesterol/HDL Ratio 10.83 % 08/16/16 16:26 Urine Color Mami (Yellow) 08/17/16 12:24 Urine Turbidity Clear (Clear) 08/17/16 12:24 Urine pH 5.0 (5.0-7.0) 08/17/16 12:24 Ur Specific [place] 1.034 (1.003-1.030) H 08/17/16 12:24 Urine Protein 100 mg/dl mg/dL (Negative) 08/17/16 12:24 Urine Glucose (UA) Neg mg/dL (Negative) 08/17/16 12:24 Urine Ketones Neg mg/dL (Negative) 08/17/16 12:24 Urine Blood Neg (Negative) 08/17/16 12:24 Urine Nitrite Neg (Negative) 08/17/16 12:24 Urine Bilirubin Neg (Negative) 08/17/16 12:24 Urine Urobilinogen 4.0 mg/dL (<2.0) 08/17/16 12:24 Ur Leukocyte Esterase Neg (Negative) 08/17/16 12:24 Urine Osmolality 552 Mosm/kg 08/17/16 12:24 Urine Creatinine 220.8 mg/dL (0.1-20.0) H 08/17/16 12:24 Urine Sodium 10 mEq/L 08/17/16 12:24 Urine Chloride 10.0 mEq/L (110-250) L 08/17/16 12:24 Urine Opiates Screen Presumptive negative 08/16/16 21:00 Urine Methadone Screen Presumptive negative 08/16/16 21:00 Ur Barbiturates Screen Presumptive negative 08/16/16 21:00 Ur Phencyclidine Scrn Presumptive negative 08/16/16 21:00 Ur Amphetamines Screen Presumptive negative 08/16/16 21:00 U Benzodiazepines Scrn Presumptive negative 08/16/16 21:00 Urine Cocaine Screen Presumptive negative 08/16/16 21:00 U Marijuana (THC) Screen Presumptive negative 08/16/16 21:00 Drugs of Abuse Note Disclamer 08/16/16 21:00
--- NOTE | 2016-08-22 09:03 | Progress Note ---
Assessment and Plan acute MN systolic heart failure acute respiratory failure Rec Update CXR Chest PT Wean of BPAP as tolerated Subjective Date of service: 08/22/16 Principal diagnosis: AMS; CMP Interval history: Cough Objective Vital Signs - 12hr 08/21/16 08/21/16 08/21/16 21:11 21:21 21:29 Temperature 101.9 F H Pulse Rate 107 H 108 H Pulse Rate [ Anterior Bilateral Throughout] Respiratory 36 H 36 H Rate Respiratory Rate [Anterior Bilateral Throughout] Blood Pressure 99/65 91/61 O2 Sat by Pulse 99 100 Oximetry 08/21/16 08/21/16 08/21/16 21:30 21:31 21:41 Temperature Pulse Rate 110 H 108 H 110 H Pulse Rate [ Anterior Bilateral Throughout] Respiratory 35 H 33 H Rate Respiratory Rate [Anterior Bilateral Throughout] Blood Pressure 93/63 96/62 93/63 O2 Sat by Pulse 100 99 Oximetry 08/21/16 08/21/16 08/21/16 21:51 22:00 22:11 Temperature Pulse Rate 108 H 108 H 107 H Pulse Rate [ Anterior Bilateral Throughout] Respiratory 36 H 41 H 42 H Rate Respiratory Rate [Anterior Bilateral Throughout] Blood Pressure 95/62 93/59 93/59 O2 Sat by Pulse 100 100 99 Oximetry 08/21/16 08/21/16 08/21/16 22:21 22:30 22:41 Temperature Pulse Rate 105 H 106 H 106 H Pulse Rate [ Anterior Bilateral Throughout] Respiratory 36 H 31 H 32 H Rate Respiratory Rate [Anterior Bilateral Throughout] Blood Pressure 80/52 77/50 77/50 O2 Sat by Pulse 100 100 100 Oximetry 08/21/16 08/21/16 08/21/16 22:51 23:00 23:11 Temperature Pulse Rate 102 H 106 H 102 H Pulse Rate [ Anterior Bilateral Throughout] Respiratory 36 H 40 H 36 H Rate Respiratory Rate [Anterior Bilateral Throughout] Blood Pressure 82/55 86/56 86/56 O2 Sat by Pulse 100 100 100 Oximetry 08/21/16 08/21/16 08/21/16 23:21 23:31 23:40 Temperature Pulse Rate 112 H 106 H 103 H Pulse Rate [ Anterior Bilateral Throughout] Respiratory 36 H 32 H 34 H Rate Respiratory Rate [Anterior Bilateral Throughout] Blood Pressure 83/50 O2 Sat by Pulse 100 100 100 Oximetry 08/21/16 08/21/16 08/22/16 23:44 23:51 00:00 Temperature 99.3 F Pulse Rate 101 H 108 H Pulse Rate [ Anterior Bilateral Throughout] Respiratory 26 H 25 H Rate Respiratory Rate [Anterior Bilateral Throughout] Blood Pressure 81/49 97/65 O2 Sat by Pulse 100 100 Oximetry 08/22/16 08/22/16 08/22/16 00:11 00:21 00:30 Temperature Pulse Rate 103 H 101 H 101 H Pulse Rate [ Anterior Bilateral Throughout] Respiratory 29 H 39 H 29 H Rate Respiratory Rate [Anterior Bilateral Throughout] Blood Pressure 97/65 97/65 89/55 O2 Sat by Pulse 100 100 100 Oximetry 08/22/16 08/22/16 08/22/16 00:41 00:51 01:00 Temperature Pulse Rate 100 H 105 H 104 H Pulse Rate [ Anterior Bilateral Throughout] Respiratory 29 H 26 H 40 H Rate Respiratory Rate [Anterior Bilateral Throughout] Blood Pressure 89/55 89/55 99/72 O2 Sat by Pulse 100 100 100 Oximetry 08/22/16 08/22/16 08/22/16 01:11 01:21 01:30 Temperature Pulse Rate 101 H 98 H 96 H Pulse Rate [ Anterior Bilateral Throughout] Respiratory 27 H 20 29 H Rate Respiratory Rate [Anterior Bilateral Throughout] Blood Pressure 99/72 99/72 85/56 O2 Sat by Pulse 100 100 100 Oximetry 08/22/16 08/22/16 08/22/16 01:41 01:43 01:51 Temperature Pulse Rate 94 H 96 H Pulse Rate [ 99 H Anterior Bilateral Throughout] Respiratory 28 H 41 H Rate Respiratory 36 H Rate [Anterior Bilateral Throughout] Blood Pressure 85/56 85/56 O2 Sat by Pulse 100 100 Oximetry 08/22/16 08/22/16 08/22/16 01:59 02:00 02:11 Temperature Pulse Rate 110 H 93 H Pulse Rate [ 98 H Anterior Bilateral Throughout] Respiratory 28 H 28 H Rate Respiratory 34 H Rate [Anterior Bilateral Throughout] Blood Pressure 111/74 111/74 O2 Sat by Pulse 100 100 Oximetry 08/22/16 08/22/16 08/22/16 02:21 02:30 02:41 Temperature Pulse Rate 101 H 97 H 94 H Pulse Rate [ Anterior Bilateral Throughout] Respiratory 50 H 33 H 24 Rate Respiratory Rate [Anterior Bilateral Throughout] Blood Pressure 111/74 92/68 92/68 O2 Sat by Pulse 100 100 100 Oximetry 04/08/22/16 08/22/16 02:51 02:55 03:00 Temperature Pulse Rate 97 H 102 H 96 H Pulse Rate [ Anterior Bilateral Throughout] Respiratory 33 H 32 H 29 H Rate Respiratory Rate [Anterior Bilateral Throughout] Blood Pressure 92/68 81/59 98/62 O2 Sat by Pulse 100 100 100 Oximetry 08/22/16 08/22/16 08/22/16 03:11 03:21 03:30 Temperature Pulse Rate 94 H 94 H 96 H Pulse Rate [ Anterior Bilateral Throughout] Respiratory 27 H 22 29 H Rate Respiratory Rate [Anterior Bilateral Throughout] Blood Pressure 98/62 98/62 89/62 O2 Sat by Pulse 100 100 100 Oximetry 08/22/16 08/22/16 08/22/16 03:41 03:51 03:59 Temperature 97 F L Pulse Rate 97 H 97 H Pulse Rate [ Anterior Bilateral Throughout] Respiratory 29 H 31 H Rate Respiratory Rate [Anterior Bilateral Throughout] Blood Pressure 89/62 89/62 O2 Sat by Pulse 100 100 Oximetry 08/22/16 08/22/16 08/22/16 04:00 04:11 04:21 Temperature Pulse Rate 89 101 H 95 H Pulse Rate [ Anterior Bilateral Throughout] Respiratory 28 H 20 23 Rate Respiratory Rate [Anterior Bilateral Throughout] Blood Pressure 87/63 87/63 87/63 O2 Sat by Pulse 100 100 97 Oximetry 08/22/16 08/22/16 08/22/16 04:30 04:41 04:51 Temperature Pulse Rate 92 H 92 H 94 H Pulse Rate [ Anterior Bilateral Throughout] Respiratory 27 H 29 H 28 H Rate Respiratory Rate [Anterior Bilateral Throughout] Blood Pressure 91/62 91/62 91/62 O2 Sat by Pulse 100 98 100 Oximetry 08/22/16 08/22/16 08/22/16 05:00 05:11 05:21 Temperature Pulse Rate 105 H 97 H 92 H Pulse Rate [ Anterior Bilateral Throughout] Respiratory 28 H 21 27 H Rate Respiratory Rate [Anterior Bilateral Throughout] Blood Pressure 103/75 103/75 103/75 O2 Sat by Pulse 100 100 100 Oximetry 08/22/16 08/22/16 08/22/16 05:31 05:41 05:51 Temperature Pulse Rate 95 H 100 H 102 H Pulse Rate [ Anterior Bilateral Throughout] Respiratory 29 H 30 H 24 Rate Respiratory Rate [Anterior Bilateral Throughout] Blood Pressure 92/66 92/66 92/66 O2 Sat by Pulse 100 100 100 Oximetry 08/22/16 08/22/16 08/22/16 06:00 06:11 07:13 Temperature Pulse Rate 98 H 97 H 96 H Pulse Rate [ Anterior Bilateral Throughout] Respiratory 37 H 25 H 26 H Rate Respiratory Rate [Anterior Bilateral Throughout] Blood Pressure 98/71 98/71 94/66 O2 Sat by Pulse 100 100 100 Oximetry 08/22/16 08/22/16 08/22/16 07:17 07:27 08:00 Temperature 97.4 F L Pulse Rate Pulse Rate [ 94 H 95 H Anterior Bilateral Throughout] Respiratory Rate Respiratory 26 H 27 H Rate [Anterior Bilateral Throughout] Blood Pressure O2 Sat by Pulse Oximetry Constitutional: alert Eyes: non-icteric ENT: oropharynx moist Neck: supple Ascultation: Bilateral: rhonchi (bilateral) Percussion: Bilateral: not dull Cardiovascular: other (tachy) Gastrointestinal: normoactive bowel sounds Extremities: pulses normal Psychiatric: mood appropriate CBC and BMP: 08/22/16 04:29 08/22/16 04:29 ABG, PT/INR, D-dimer: ABG POC ABG pH 7.507 (7.35-7.45) H 08/19/16 10:19 POC ABG pCO2 21.9 (35-45) L 08/19/16 10:19 POC ABG pO2 85 (80-105) 08/19/16 10:19 POC ABG HCO3 17.3 08/19/16 10:19 POC ABG Total CO2 18 08/19/16 10:19 POC ABG O2 Sat 98 08/19/16 10:19 PT/INR, D-dimer PT 17.8 Sec. (12.2-14.9) H 08/22/16 04:29 INR 1.47 (0.87-1.13) H 08/22/16 04:29 Abnormal lab findings: Abnormal Labs 08/16/16 08/16/16 08/16/16 16:26 16:26 20:49 WBC RBC 2.84 L Hgb 8.3 L Hct 24.7 L MCHC Lymph % (Auto) 8.3 L Lewis % (Auto) 7.8 H Lymph # 0.7 L Seg Neutrophils % 83.8 H PT INR APTT Heparin Anti-Xa Level POC ABG pH POC ABG pCO2 Sodium 122 L Potassium Chloride 87.8 L Carbon Dioxide 19 L BUN Creatinine Glucose 126 H POC Glucose Calcium 7.7 L Magnesium AST Alkaline Phosphatase CK-MB (CK-2) CK-MB (CK-2) Rel Index Troponin T 0.695 H* 0.703 H* NT-Pro-B Natriuret Pep Total Protein Albumin Triglycerides 184 H HDL Cholesterol 12 L Ur Specific Ewen Urine Creatinine Urine Chloride 08/16/16 08/17/16 08/17/16 20:50 04:58 08:42 WBC RBC Hgb Hct MCHC Lymph % (Auto) Lewis % (Auto) Lymph # Seg Neutrophils % PT INR APTT Heparin Anti-Xa Level POC ABG pH POC ABG pCO2 Sodium 125 L 128 L Potassium Chloride 89.9 L 92.5 L Carbon Dioxide 18 L 19 L BUN 21 H Creatinine Glucose 108 H 105 H POC Glucose Calcium 7.7 L 7.5 L Magnesium AST Alkaline Phosphatase CK-MB (CK-2) 6.9 H CK-MB (CK-2) Rel Index 4.7 H Troponin T 0.590 H* NT-Pro-B Natriuret Pep Total Protein Albumin Triglycerides HDL Cholesterol Ur Specific Ewen Urine Creatinine Urine Chloride 08/17/16 08/17/16 08/17/16 12:24 12:24 16:06 WBC RBC Hgb Hct MCHC Lymph % (Auto) Lewis % (Auto) Lymph # Seg Neutrophils % PT INR APTT Heparin Anti-Xa Level POC ABG pH POC ABG pCO2 Sodium 127 L Potassium Chloride 91.9 L Carbon Dioxide 16 L BUN 28 H Creatinine Glucose POC Glucose Calcium 7.4 L Magnesium AST Alkaline Phosphatase CK-MB (CK-2) CK-MB (CK-2) Rel Index Troponin T NT-Pro-B Natriuret Pep Total Protein Albumin Triglycerides HDL Cholesterol Ur Specific Ewen 1.034 H Urine Creatinine 220.8 H Urine Chloride 10.0 L 08/17/16 08/18/16 08/18/16 23:50 04:12 05:29 WBC RBC Hgb Hct MCHC Lymph % (Auto) Lewis % (Auto) Lymph # Seg Neutrophils % PT INR APTT Heparin Anti-Xa Level POC ABG pH POC ABG pCO2 Sodium 129 L Potassium Chloride 96.5 L Carbon Dioxide 15 L BUN 43 H Creatinine 1.7 H Glucose 115 H POC Glucose 126 H 121 H Calcium 7.4 L Magnesium AST Alkaline Phosphatase CK-MB (CK-2) CK-MB (CK-2) Rel Index Troponin T NT-Pro-B Natriuret Pep Total Protein Albumin Triglycerides HDL Cholesterol Ur Specific Ewen Urine Creatinine Urine Chloride 08/18/16 08/18/16 08/18/16 08:33 12:00 13:18 WBC RBC Hgb Hct MCHC Lymph % (Auto) Lewis % (Auto) Lymph # Seg Neutrophils % PT 16.3 H INR 1.32 H APTT 185.1 H* Heparin Anti-Xa Level POC ABG pH POC ABG pCO2 Sodium 128 L Potassium 5.2 H Chloride 96.0 L Carbon Dioxide 16 L BUN 44 H Creatinine 1.7 H Glucose 109 H POC Glucose 125 H Calcium 7.3 L Magnesium AST 152 H Alkaline Phosphatase 175 H CK-MB (CK-2) CK-MB (CK-2) Rel Index Troponin T NT-Pro-B Natriuret Pep Total Protein 5.6 L Albumin 1.9 L Triglycerides HDL Cholesterol Ur Specific Ewen Urine Creatinine Urine Chloride 08/18/16 08/18/16 08/18/16 15:42 15:42 20:38 WBC RBC Hgb Hct MCHC Lymph % (Auto) Lewis % (Auto) Lymph # Seg Neutrophils % PT INR APTT 45.2 H Heparin Anti-Xa Level < 0.10 L POC ABG pH POC ABG pCO2 Sodium 128 L Potassium Chloride 95.8 L Carbon Dioxide 16 L BUN 49 H Creatinine 1.7 H Glucose 137 H POC Glucose Calcium 7.3 L Magnesium AST Alkaline Phosphatase CK-MB (CK-2) CK-MB (CK-2) Rel Index Troponin T NT-Pro-B Natriuret Pep Total Protein Albumin Triglycerides HDL Cholesterol Ur Specific Ewen Urine Creatinine Urine Chloride 08/19/16 08/19/16 08/19/16 06:20 06:20 06:20 WBC RBC Hgb Hct MCHC Lymph % (Auto) Lewis % (Auto) Lymph # Seg Neutrophils % PT INR APTT Heparin Anti-Xa Level 0.12 L POC ABG pH POC ABG pCO2 Sodium 128 L Potassium Chloride 95.9 L Carbon Dioxide 15 L BUN 49 H Creatinine Glucose 116 H POC Glucose Calcium 7.4 L Magnesium AST Alkaline Phosphatase CK-MB (CK-2) CK-MB (CK-2) Rel Index Troponin T NT-Pro-B Natriuret Pep 6736 H Total Protein Albumin Triglycerides HDL Cholesterol Ur Specific Ewen Urine Creatinine Urine Chloride 08/19/16 08/19/16 08/19/16 10:04 10:19 11:33 WBC RBC Hgb Hct MCHC Lymph % (Auto) Lewis % (Auto) Lymph # Seg Neutrophils % PT INR APTT Heparin Anti-Xa Level POC ABG pH 7.507 H POC ABG pCO2 21.9 L Sodium Potassium Chloride Carbon Dioxide BUN Creatinine Glucose POC Glucose 108 H 135 H Calcium Magnesium AST Alkaline Phosphatase CK-MB (CK-2) CK-MB (CK-2) Rel Index Troponin T NT-Pro-B Natriuret Pep Total Protein Albumin Triglycerides HDL Cholesterol Ur Specific Ewen Urine Creatinine Urine Chloride 08/19/16 08/19/16 08/19/16 14:31 17:47 17:56 WBC RBC Hgb Hct MCHC Lymph % (Auto) Lewis % (Auto) Lymph # Seg Neutrophils % PT INR APTT Heparin Anti-Xa Level > 1.90 H POC ABG pH POC ABG pCO2 Sodium 120 L D Potassium Chloride 89.6 L Carbon Dioxide 14 L BUN 37 H Creatinine Glucose POC Glucose 110 H Calcium 6.0 L D Magnesium AST Alkaline Phosphatase CK-MB (CK-2) CK-MB (CK-2) Rel Index Troponin T NT-Pro-B Natriuret Pep Total Protein Albumin Triglycerides HDL Cholesterol Ur Specific Ewen Urine Creatinine Urine Chloride 08/20/16 08/20/16 08/20/16 00:21 05:19 05:19 WBC 22.7 H RBC 2.92 L Hgb 8.2 L Hct 26.2 L MCHC 31 L Lymph % (Auto) Lewis % (Auto) Lymph # Seg Neutrophils % PT 15.1 H INR 1.20 H APTT Heparin Anti-Xa Level < 0.10 L POC ABG pH POC ABG pCO2 Sodium Potassium Chloride Carbon Dioxide BUN Creatinine Glucose POC Glucose Calcium Magnesium AST Alkaline Phosphatase CK-MB (CK-2) CK-MB (CK-2) Rel Index Troponin T NT-Pro-B Natriuret Pep Total Protein Albumin Triglycerides HDL Cholesterol Ur Specific Ewen Urine Creatinine Urine Chloride 08/20/16 08/20/16 08/20/16 05:19 12:34 17:29 WBC RBC Hgb Hct MCHC Lymph % (Auto) Lewis % (Auto) Lymph # Seg Neutrophils % PT INR APTT Heparin Anti-Xa Level POC ABG pH POC ABG pCO2 Sodium 132 L D Potassium Chloride Carbon Dioxide 17 L BUN 39 H Creatinine Glucose 131 H POC Glucose 124 H 120 H Calcium 7.8 L D Magnesium 2.6 H AST Alkaline Phosphatase CK-MB (CK-2) CK-MB (CK-2) Rel Index Troponin T NT-Pro-B Natriuret Pep Total Protein Albumin Triglycerides HDL Cholesterol Ur Specific Ewen Urine Creatinine Urine Chloride 08/20/16 08/21/16 08/21/16 20:06 07:18 07:18 WBC RBC Hgb Hct MCHC Lymph % (Auto) Lewis % (Auto) Lymph # Seg Neutrophils % PT 16.7 H INR 1.36 H APTT Heparin Anti-Xa Level POC ABG pH POC ABG pCO2 Sodium 129 L 132 L Potassium Chloride 95.7 L Carbon Dioxide 18 L 17 L BUN 34 H 32 H Creatinine Glucose 121 H 123 H POC Glucose Calcium 7.9 L 7.7 L Magnesium AST Alkaline Phosphatase CK-MB (CK-2) CK-MB (CK-2) Rel Index Troponin T NT-Pro-B Natriuret Pep Total Protein Albumin Triglycerides HDL Cholesterol Ur Specific Ewen Urine Creatinine Urine Chloride 08/21/16 08/21/16 08/21/16 07:18 09:33 16:05 WBC 18.3 H RBC 2.54 L Hgb 7.2 L Hct 22.2 L MCHC Lymph % (Auto) Lewis % (Auto) Lymph # Seg Neutrophils % PT INR APTT Heparin Anti-Xa Level 0.15 L POC ABG pH POC ABG pCO2 Sodium 131 L Potassium 5.3 H D Chloride Carbon Dioxide 14 L BUN 33 H Creatinine Glucose 139 H POC Glucose Calcium 8.2 L Magnesium AST Alkaline Phosphatase CK-MB (CK-2) CK-MB (CK-2) Rel Index Troponin T NT-Pro-B Natriuret Pep Total Protein Albumin Triglycerides HDL Cholesterol Ur Specific Ewen Urine Creatinine Urine Chloride 08/21/16 08/22/16 08/22/16 20:30 04:29 04:29 WBC RBC Hgb 7.8 L Hct 24.7 L MCHC Lymph % (Auto) Lewis % (Auto) Lymph # Seg Neutrophils % PT 17.8 H INR 1.47 H APTT Heparin Anti-Xa Level < 0.10 L 0.12 L POC ABG pH POC ABG pCO2 Sodium Potassium Chloride Carbon Dioxide BUN Creatinine Glucose POC Glucose Calcium Magnesium AST Alkaline Phosphatase CK-MB (CK-2) CK-MB (CK-2) Rel Index Troponin T NT-Pro-B Natriuret Pep Total Protein Albumin Triglycerides HDL Cholesterol Ur Specific Ewen Urine Creatinine Urine Chloride 08/22/16 04:29 WBC RBC Hgb Hct MCHC Lymph % (Auto) Lewis % (Auto) Lymph # Seg Neutrophils % PT INR APTT Heparin Anti-Xa Level POC ABG pH POC ABG pCO2 Sodium 133 L Potassium Chloride Carbon Dioxide 18 L BUN 34 H Creatinine Glucose 136 H POC Glucose Calcium 8.3 L Magnesium AST Alkaline Phosphatase CK-MB (CK-2) CK-MB (CK-2) Rel Index Troponin T NT-Pro-B Natriuret Pep Total Protein Albumin Triglycerides HDL Cholesterol Ur Specific Ewen Urine Creatinine Urine Chloride
--- NOTE | 2016-08-22 09:42 | XRay Report ---
AP CHEST: HISTORY: Short of breath, CHF Compared to 08/21/16. Cardiomegaly and pulmonary venous congestion are relatively stable. There is increased small right pleural effusion and compressive atelectasis at the right lung base. The left lung remains generally clear. No pneumothorax. IMPRESSION: Mild interval worsening of CHF since yesterday's exam.
[2016-08-22] MEDS: FOLVITE PO SCH (11:15)
[2016-08-22] MEDS: THERAGRAN Tab PO SCH (11:15)
[2016-08-22] MEDS: VITAMIN B-1 PO SCH (11:16)
[2016-08-22] MEDS: COREG PO SCH ×2 (11:17→22:21)
[2016-08-22] MEDS ORDERED: LASIX IV ONE (11:57)
--- NOTE | 2016-08-22 11:57 | Progress Note ---
Assessment and Plan Assessment: AMS / encephalopathy - head CT with no acute intracranial abnormality. Consider neurology consultation if AMS persists. Abnormal EKG / ACS ruled out - pt underwent coronary angiography on 08/16/2016 which revealed patent coronaries, EF 15%. Elevated troponins Takotsubo CMP Hypotension / Acute systolic HF / ? cardiogenic shock Cardiac thrombus - pendunculated LV thrombus; likely chronic; on heparin gtt with PO coumadin. Sinus tachycardia ? syncopal episode 1 month ago HTN Hyponatremia - improving. ARF - nephrology following. Anemia ETOH abuse / ETOH withdrawal - UDS negative; cessation encouraged; CIWA protocol. Plan: Cont dobutamine gtt @ 5mcg/kg/min. Do not titrate. Cont heparin gtt and PO coumadin until therapeutic INR of 2-3 is achieved. Cont low dose coreg as tolerated. Hold for HR <60 and MAP <60. No ACEI/ARB at this time in setting of ARF and hypotension. Gentle intermittent IV diuresis. Cont tele and close observation. The patient has been seen in conjunction with Dr. Vincent who agrees with the assessment and plan of care. Subjective Date of service: 08/22/16 Principal diagnosis: AMS; CMP Interval history: Pt resting in bed, withdrawn, tachypnea noted, on O2 via NC - has been on continuous BIPAP per RN report. BPs hypotensive, mild ST on tele with HR 100s. Dobutamine gtt infusing. Objective Last Vital Signs Temp 97.4 F L 08/22/16 08:00 Pulse 112 H 08/22/16 11:17 Resp 27 H 08/22/16 07:27 BP 89/63 08/22/16 11:17 Pulse Ox 100 08/22/16 11:17 - Physical Examination General: No Apparent Distress, Other (ill-appearing ) HEENT: Positive: PERRL, Normocephaly, Mucus Membranes Moist Neck: Positive: neck supple, trachea midline Cardiac: Positive: Regular Rhythm, S1/S2, Tachycardia Lungs: Positive: Decreased Breath Sounds, Rales Neuro: Positive: Grossly Intact, Other (withdrawn, opens eyes to commands, follows commands appropriately. ) Abdomen: Positive: Unremarkable, Soft, Active Bowel Sounds. Negative: Tender Skin: Positive: Clear. Negative: Rash, Wound Musculoskeletal: No Fluid Collection, No Pain, Normal Range of Motion Extremities: Present: normal, upper extr. pulses, lower extr. pulses. Absent: edema - Labs and Meds Coagulation 08/22/16 Range/Units 04:29 PT 17.8 H (12.2-14.9) Sec. INR 1.47 H (0.87-1.13) CBC 08/22/16 Range/Units 04:29 Hgb 7.8 L (11.8-15.2) gm/dl Hct 24.7 L (35.5-45.6) % Plt Count 277 (140-440) K/mm3 Comprehensive Metabolic Panel 08/21/16 08/22/16 Range/Units 16:05 04:29 Sodium 131 L 133 L (137-145) mmol/L Potassium 5.3 H D 4.5 (3.6-5.0) mmol/L Chloride 98.7 99.4 (98-107) mmol/L Carbon Dioxide 14 L 18 L (22-30) mmol/L BUN 33 H 34 H (9-20) mg/dL Creatinine 1.1 1.3 (0.8-1.5) mg/dL Glucose 139 H 136 H (75-100) mg/dL Calcium 8.2 L 8.3 L (8.4-10.2) mg/dL - Imaging and Cardiology EKG: report reviewed, image reviewed Echo: report reviewed (08/16/2016: severe global hypokinesis, EF 15-20%, mild LHV , mild to moderate MR, moderate TR, minimal pericardial effusion, thrombus in the LV) - Telemetry EKG Rhythm: Sinus Tachycardia - EKG Sinus rhythms and dysrhythmias: sinus rhythm Myocardial infarction: anterior PR (acute or rec, lateral PR (acute or rece
[2016-08-22] MEDS: COUMADIN PO SCH (17:04)
[2016-08-22 17:48] LABS: Anion Gap 21 mmol/L; Blood Urea Nitrogen 30 mg/dL (9-20); Carbon Dioxide 13 mmol/L (22-30); Chloride 88.7 mmol/L (98-107); Glucose 292 mg/dL (75-100); Potassium 3.6 mmol/L (3.6-5.0)
[2016-08-22 17:54] LABS: Sodium 120 mmol/L (137-145)
[2016-08-22 22:01] LABS: Anion Gap 20 mmol/L; Blood Urea Nitrogen 29 mg/dL (9-20); Carbon Dioxide 14 mmol/L (22-30); Chloride 85.6 mmol/L (98-107); Glucose 338 mg/dL (75-100); Potassium 3.7 mmol/L (3.6-5.0)
[2016-08-22 22:06] LABS: Calcium 5.6 mg/dL (8.4-10.2); Sodium 116 mmol/L (137-145)
[2016-08-23] MEDS: DUONEB 0.5 MG-3 MG/3 ML SOLN IH SCH ×4 (02:06→21:35)
[2016-08-23] MEDS: DOBUTREX DRIP 500MG/D5W 250ML 500 MG/250 ML BAG IV SCH (05:32)
[2016-08-23] MEDS: LASIX IV SCH ×2 (05:32→19:29)
[2016-08-23 05:42] LABS: Hematocrit 24.5 % (35.5-45.6); Hemoglobin 7.9 gm/dl (11.8-15.2); Mean Corpuscular HGB Conc 32 % (32-34); Mean Corpuscular Hemoglobin 28 pg (28-32); Mean Corpuscular Volume 88 fl (84-94); Platelet Count 329 K/mm3 (140-440); Red Blood Count 2.79 M/mm3 (3.65-5.03); Red Cell Distribution Width 14.6 % (13.2-15.2); White Blood Count 15.5 K/mm3 (4.5-11.0)
[2016-08-23 05:56] LABS: Anion Gap 24 mmol/L; BUN/Creatinine Ratio 30.71; Blood Urea Nitrogen 43 mg/dL (9-20); Calcium 8.1 mg/dL (8.4-10.2); Carbon Dioxide 16 mmol/L (22-30); Chloride 97.5 mmol/L (98-107); Glucose 157 mg/dL (75-100); Potassium 4.7 mmol/L (3.6-5.0); Sodium 133 mmol/L (137-145)
[2016-08-23 06:55] LABS: INR 1.77 (0.87-1.13)
[2016-08-23] MEDS: HEPARIN/ 0.45% NACL-25,000 UNIT/500 ML 25,000 UNITS/500 ML BAG IV SCH ×2 (07:49→19:29)
--- NOTE | 2016-08-23 08:53 | Progress Note ---
Assessment and Plan Assessment: * Acute kidney injury * Nonischemic cardiomyopathy - EF 15% --LHC: nml coronaries, severe global hypokinesis * LV thrombus * Altered mental status * Hyponatremia - stable * Metabolic acidosis * Alcohol abuse Plan: * Serum creatinine noted to be slightly higher today. * Patient clinically still volume overloaded. Chest x-ray from yesterday also showing evidence of congestive heart failure. * Diuresis per cardiology * Na is better today. Continue fluid restriction. Shall check a UA as well as a urine sodium and urine osmolality * Anticoagulation per cardiology * Optimization of cardiac function * Avoid potential nephrotoxins * Add oral sodium bicarbonate * Monitor lytes Subjective Date of service: 08/23/16 Principal diagnosis: AMS; CMP Interval history: Patient is currently in the ICU. On a BiPAP mask. With 30% FiO2. He is also on a heparin drip as well as a dobutamine drip Objective - Vital Signs Vital signs: Vital Signs - 12hr 08/22/16 08/22/16 08/22/16 20:51 21:00 21:11 Temperature Pulse Rate 112 H 109 H 114 H Pulse Rate [ Anterior Bilateral Throughout] Pulse Rate [ From Monitor] Respiratory 38 H 22 35 H Rate Respiratory Rate [Anterior Bilateral Throughout] Blood Pressure 101/65 95/63 95/63 O2 Sat by Pulse 100 100 100 Oximetry 08/22/16 08/22/16 08/22/16 21:21 21:30 21:41 Temperature Pulse Rate 112 H 109 H 112 H Pulse Rate [ Anterior Bilateral Throughout] Pulse Rate [ From Monitor] Respiratory 35 H 27 H 41 H Rate Respiratory Rate [Anterior Bilateral Throughout] Blood Pressure 95/63 91/57 91/57 O2 Sat by Pulse 99 97 98 Oximetry 08/22/16 08/22/16 08/22/16 21:51 22:00 22:11 Temperature Pulse Rate 112 H 117 H 116 H Pulse Rate [ Anterior Bilateral Throughout] Pulse Rate [ From Monitor] Respiratory 26 H 41 H 43 H Rate Respiratory Rate [Anterior Bilateral Throughout] Blood Pressure 91/57 93/65 93/65 O2 Sat by Pulse 100 100 100 Oximetry 08/22/16 08/22/16 08/22/16 22:21 22:30 22:35 Temperature Pulse Rate 111 H 119 H Pulse Rate [ 104 H Anterior Bilateral Throughout] Pulse Rate [ From Monitor] Respiratory 32 H 41 H Rate Respiratory 26 H Rate [Anterior Bilateral Throughout] Blood Pressure 93/65 103/72 O2 Sat by Pulse 100 100 Oximetry 08/22/16 08/22/16 08/22/16 22:36 22:41 22:51 Temperature Pulse Rate 109 H 111 H 111 H Pulse Rate [ Anterior Bilateral Throughout] Pulse Rate [ From Monitor] Respiratory 34 H 33 H 28 H Rate Respiratory Rate [Anterior Bilateral Throughout] Blood Pressure 103/72 103/72 103/72 O2 Sat by Pulse 100 100 100 Oximetry 08/22/16 08/22/16 08/22/16 22:56 23:00 23:11 Temperature Pulse Rate 112 H 113 H Pulse Rate [ 98 H Anterior Bilateral Throughout] Pulse Rate [ 117 H From Monitor] Respiratory 25 H 37 H Rate Respiratory 24 Rate [Anterior Bilateral Throughout] Blood Pressure 89/55 89/55 O2 Sat by Pulse 100 100 Oximetry 08/22/16 08/22/16 08/22/16 23:21 23:31 23:41 Temperature Pulse Rate 112 H 112 H 114 H Pulse Rate [ Anterior Bilateral Throughout] Pulse Rate [ From Monitor] Respiratory 29 H 26 H 28 H Rate Respiratory Rate [Anterior Bilateral Throughout] Blood Pressure 89/55 99/71 99/71 O2 Sat by Pulse 100 100 100 Oximetry 08/22/16 08/23/16 08/23/16 23:51 00:00 00:09 Temperature Pulse Rate 109 H 115 H 109 H Pulse Rate [ Anterior Bilateral Throughout] Pulse Rate [ From Monitor] Respiratory 36 H 31 H 26 H Rate Respiratory Rate [Anterior Bilateral Throughout] Blood Pressure 99/71 93/63 93/63 O2 Sat by Pulse 100 100 100 Oximetry 08/23/16 08/23/16 08/23/16 00:11 00:21 00:30 Temperature Pulse Rate 111 H 111 H 115 H Pulse Rate [ Anterior Bilateral Throughout] Pulse Rate [ From Monitor] Respiratory 40 H 30 H 38 H Rate Respiratory Rate [Anterior Bilateral Throughout] Blood Pressure 93/63 93/63 101/68 O2 Sat by Pulse 100 100 100 Oximetry 08/23/16 08/23/16 08/23/16 00:38 00:41 00:51 Temperature 101.3 F H Pulse Rate 111 H 116 H Pulse Rate [ Anterior Bilateral Throughout] Pulse Rate [ From Monitor] Respiratory 41 H 34 H Rate Respiratory Rate [Anterior Bilateral Throughout] Blood Pressure 93/63 93/63 O2 Sat by Pulse 100 100 Oximetry 08/23/16 08/23/16 08/23/16 01:00 01:11 01:21 Temperature Pulse Rate 111 H 110 H 114 H Pulse Rate [ Anterior Bilateral Throughout] Pulse Rate [ From Monitor] Respiratory 28 H 22 36 H Rate Respiratory Rate [Anterior Bilateral Throughout] Blood Pressure 90/59 90/59 90/59 O2 Sat by Pulse 100 100 100 Oximetry 08/23/16 08/23/16 08/23/16 01:31 01:41 01:51 Temperature Pulse Rate 121 H 100 H 113 H Pulse Rate [ Anterior Bilateral Throughout] Pulse Rate [ From Monitor] Respiratory 31 H 33 H 24 Rate Respiratory Rate [Anterior Bilateral Throughout] Blood Pressure 111/73 111/73 111/73 O2 Sat by Pulse 100 100 100 Oximetry 08/23/16 08/23/16 08/23/16 02:00 02:08 02:11 Temperature Pulse Rate 111 H 112 H Pulse Rate [ 110 H Anterior Bilateral Throughout] Pulse Rate [ From Monitor] Respiratory 28 H 35 H Rate Respiratory 31 H Rate [Anterior Bilateral Throughout] Blood Pressure 91/59 91/59 O2 Sat by Pulse 100 100 Oximetry 08/23/16 08/23/16 08/23/16 02:21 02:26 02:30 Temperature Pulse Rate 113 H 109 H Pulse Rate [ 102 H Anterior Bilateral Throughout] Pulse Rate [ From Monitor] Respiratory 26 H 29 H Rate Respiratory 28 H Rate [Anterior Bilateral Throughout] Blood Pressure 91/59 90/59 O2 Sat by Pulse 100 100 Oximetry 08/23/16 08/23/16 08/23/16 02:41 02:51 03:00 Temperature Pulse Rate 118 H 110 H 112 H Pulse Rate [ Anterior Bilateral Throughout] Pulse Rate [ From Monitor] Respiratory 23 30 H 31 H Rate Respiratory Rate [Anterior Bilateral Throughout] Blood Pressure 90/59 90/59 85/59 O2 Sat by Pulse 100 100 100 Oximetry 08/23/16 08/23/16 08/23/16 03:11 03:21 03:30 Temperature Pulse Rate 116 H 108 H 122 H Pulse Rate [ Anterior Bilateral Throughout] Pulse Rate [ From Monitor] Respiratory 29 H 32 H 32 H Rate Respiratory Rate [Anterior Bilateral Throughout] Blood Pressure 85/59 85/59 107/80 O2 Sat by Pulse 100 100 100 Oximetry 08/23/16 08/23/16 08/23/16 03:41 03:51 04:00 Temperature Pulse Rate 110 H 112 H 113 H Pulse Rate [ Anterior Bilateral Throughout] Pulse Rate [ From Monitor] Respiratory 29 H 34 H 36 H Rate Respiratory Rate [Anterior Bilateral Throughout] Blood Pressure 107/80 107/80 105/70 O2 Sat by Pulse 100 100 100 Oximetry 08/23/16 08/23/16 08/23/16 04:11 04:21 04:26 Temperature 99.6 F Pulse Rate 107 H 102 H Pulse Rate [ Anterior Bilateral Throughout] Pulse Rate [ From Monitor] Respiratory 31 H 29 H Rate Respiratory Rate [Anterior Bilateral Throughout] Blood Pressure 105/70 105/70 O2 Sat by Pulse 100 100 Oximetry 08/23/16 08/23/16 08/23/16 04:30 04:41 04:51 Temperature Pulse Rate 116 H 109 H 107 H Pulse Rate [ Anterior Bilateral Throughout] Pulse Rate [ From Monitor] Respiratory 35 H 28 H 30 H Rate Respiratory Rate [Anterior Bilateral Throughout] Blood Pressure 105/74 105/74 105/74 O2 Sat by Pulse 100 100 100 Oximetry 08/23/16 08/23/16 08/23/16 05:00 05:11 05:20 Temperature Pulse Rate 109 H 107 H 108 H Pulse Rate [ Anterior Bilateral Throughout] Pulse Rate [ From Monitor] Respiratory 28 H 31 H 25 H Rate Respiratory Rate [Anterior Bilateral Throughout] Blood Pressure 92/60 92/60 92/60 O2 Sat by Pulse 100 100 100 Oximetry 08/23/16 08/23/16 08/23/16 05:30 05:41 05:51 Temperature Pulse Rate 111 H 110 H 116 H Pulse Rate [ Anterior Bilateral Throughout] Pulse Rate [ From Monitor] Respiratory 36 H 44 H 42 H Rate Respiratory Rate [Anterior Bilateral Throughout] Blood Pressure 92/65 92/60 92/60 O2 Sat by Pulse 100 100 100 Oximetry 08/23/16 08/23/16 08/23/16 06:00 06:11 06:21 Temperature Pulse Rate 112 H 109 H 106 H Pulse Rate [ Anterior Bilateral Throughout] Pulse Rate [ From Monitor] Respiratory 43 H 34 H 20 Rate Respiratory Rate [Anterior Bilateral Throughout] Blood Pressure 97/68 92/65 92/65 O2 Sat by Pulse 100 100 100 Oximetry 08/23/16 08/23/16 08/23/16 06:30 06:41 06:51 Temperature Pulse Rate 108 H 108 H 108 H Pulse Rate [ Anterior Bilateral Throughout] Pulse Rate [ From Monitor] Respiratory 30 H 37 H 27 H Rate Respiratory Rate [Anterior Bilateral Throughout] Blood Pressure 103/64 97/68 97/68 O2 Sat by Pulse 100 100 100 Oximetry 08/23/16 08/23/16 08/23/16 07:00 07:11 07:21 Temperature Pulse Rate 109 H 111 H 111 H Pulse Rate [ Anterior Bilateral Throughout] Pulse Rate [ From Monitor] Respiratory 30 H 34 H 39 H Rate Respiratory Rate [Anterior Bilateral Throughout] Blood Pressure 95/67 95/67 95/67 O2 Sat by Pulse 100 100 100 Oximetry 08/23/16 08/23/16 08/23/16 07:30 07:41 07:51 Temperature Pulse Rate 112 H 109 H 110 H Pulse Rate [ Anterior Bilateral Throughout] Pulse Rate [ From Monitor] Respiratory 33 H 35 H 26 H Rate Respiratory Rate [Anterior Bilateral Throughout] Blood Pressure 102/72 102/72 102/72 O2 Sat by Pulse 100 100 100 Oximetry 08/23/16 08/23/16 08/23/16 08:00 08:11 08:21 Temperature Pulse Rate 111 H 112 H 113 H Pulse Rate [ Anterior Bilateral Throughout] Pulse Rate [ From Monitor] Respiratory 35 H 27 H 41 H Rate Respiratory Rate [Anterior Bilateral Throughout] Blood Pressure 92/64 92/64 92/64 O2 Sat by Pulse 100 100 100 Oximetry 08/23/16 08:30 Temperature Pulse Rate 112 H Pulse Rate [ Anterior Bilateral Throughout] Pulse Rate [ From Monitor] Respiratory 24 Rate Respiratory Rate [Anterior Bilateral Throughout] Blood Pressure 91/62 O2 Sat by Pulse 100 Oximetry - General Appearance General appearance: well-developed, well-nourished, appears stated age EENT: PERRL Neck: no JVD, no thyromegaly Respiratory: Present: Decreased Breath Sounds (at the bases) Cardiology: regular, normal heart rate, S1S2, no murmurs Gastrointestinal: normal, normoactive bowel sounds Integumentary: no rash, other (no edema) - Lab 08/23/16 04:31 08/23/16 04:31 Most recent lab results Calcium 8.1 mg/dL (8.4-10.2) L D 08/23/16 04:31 Phosphorus 4.1 mg/dL (2.5-4.5) 08/20/16 05:19 Magnesium 2.6 mg/dL (1.7-2.3) H 08/20/16 05:19 Urine Creatinine 220.8 mg/dL (0.1-20.0) H 08/17/16 12:24 Urine Sodium 10 mEq/L 08/17/16 12:24
--- NOTE | 2016-08-23 09:11 | Progress Note ---
Assessment and Plan Acute respiratory failure. On BiPAP, secondary to ongoing cardiomyopathy decompensation AMS / encephalopathy -improved Abnormal EKG / ACS ruled out - pt underwent coronary angiography on 08/16/2016 which revealed patent coronaries, EF 15%. Elevated troponins Takotsubo CMP Hypotension / Acute systolic HF / consistent cardiogenic shock on pressors Cardiac thrombus - pendunculated LV thrombus; likely chronic; on heparin gtt with PO coumadin. HTN Hyponatremia - ARF - nephrology following. Anemia ETOH abuse / ETOH withdrawal - UDS negative; cessation encouraged; CIWA protocol. Recommendations Continue dobutamine Continue BiPAP with attempt to decrease pressure support level slowly as pt hopefully improves Gentle diuretics Monitor electrolytes and renal function. Nephrology following Subjective Date of service: 08/23/16 Principal diagnosis: cardiomyopathy with congestive failure Interval history: Feels the same on BiPAP Objective Vital Signs - 12hr 08/22/16 08/22/16 08/22/16 21:11 21:21 21:30 Temperature Pulse Rate 114 H 112 H 109 H Pulse Rate [ Anterior Bilateral Throughout] Pulse Rate [ From Monitor] Respiratory 35 H 35 H 27 H Rate Respiratory Rate [Anterior Bilateral Throughout] Blood Pressure 95/63 95/63 91/57 O2 Sat by Pulse 100 99 97 Oximetry 08/22/16 08/22/16 08/22/16 21:41 21:51 22:00 Temperature Pulse Rate 112 H 112 H 117 H Pulse Rate [ Anterior Bilateral Throughout] Pulse Rate [ From Monitor] Respiratory 41 H 26 H 41 H Rate Respiratory Rate [Anterior Bilateral Throughout] Blood Pressure 91/57 91/57 93/65 O2 Sat by Pulse 98 100 100 Oximetry 08/22/16 08/22/16 08/22/16 22:11 22:21 22:30 Temperature Pulse Rate 116 H 111 H 119 H Pulse Rate [ Anterior Bilateral Throughout] Pulse Rate [ From Monitor] Respiratory 43 H 32 H 41 H Rate Respiratory Rate [Anterior Bilateral Throughout] Blood Pressure 93/65 93/65 103/72 O2 Sat by Pulse 100 100 100 Oximetry 08/22/16 08/22/16 08/22/16 22:35 22:36 22:41 Temperature Pulse Rate 109 H 111 H Pulse Rate [ 104 H Anterior Bilateral Throughout] Pulse Rate [ From Monitor] Respiratory 34 H 33 H Rate Respiratory 26 H Rate [Anterior Bilateral Throughout] Blood Pressure 103/72 103/72 O2 Sat by Pulse 100 100 Oximetry 08/22/16 08/22/16 08/22/16 22:51 22:56 23:00 Temperature Pulse Rate 111 H 112 H Pulse Rate [ 98 H Anterior Bilateral Throughout] Pulse Rate [ 117 H From Monitor] Respiratory 28 H 25 H Rate Respiratory 24 Rate [Anterior Bilateral Throughout] Blood Pressure 103/72 89/55 O2 Sat by Pulse 100 100 Oximetry 08/22/16 08/22/16 08/22/16 23:11 23:21 23:31 Temperature Pulse Rate 113 H 112 H 112 H Pulse Rate [ Anterior Bilateral Throughout] Pulse Rate [ From Monitor] Respiratory 37 H 29 H 26 H Rate Respiratory Rate [Anterior Bilateral Throughout] Blood Pressure 89/55 89/55 99/71 O2 Sat by Pulse 100 100 100 Oximetry 08/22/16 08/22/16 08/23/16 23:41 23:51 00:00 Temperature Pulse Rate 114 H 109 H 115 H Pulse Rate [ Anterior Bilateral Throughout] Pulse Rate [ From Monitor] Respiratory 28 H 36 H 31 H Rate Respiratory Rate [Anterior Bilateral Throughout] Blood Pressure 99/71 99/71 93/63 O2 Sat by Pulse 100 100 100 Oximetry 08/23/16 08/23/16 08/23/16 00:09 00:11 00:21 Temperature Pulse Rate 109 H 111 H 111 H Pulse Rate [ Anterior Bilateral Throughout] Pulse Rate [ From Monitor] Respiratory 26 H 40 H 30 H Rate Respiratory Rate [Anterior Bilateral Throughout] Blood Pressure 93/63 93/63 93/63 O2 Sat by Pulse 100 100 100 Oximetry 08/23/16 08/23/16 08/23/16 00:30 00:38 00:41 Temperature 101.3 F H Pulse Rate 115 H 111 H Pulse Rate [ Anterior Bilateral Throughout] Pulse Rate [ From Monitor] Respiratory 38 H 41 H Rate Respiratory Rate [Anterior Bilateral Throughout] Blood Pressure 101/68 93/63 O2 Sat by Pulse 100 100 Oximetry 08/23/16 08/23/16 08/23/16 00:51 01:00 01:11 Temperature Pulse Rate 116 H 111 H 110 H Pulse Rate [ Anterior Bilateral Throughout] Pulse Rate [ From Monitor] Respiratory 34 H 28 H 22 Rate Respiratory Rate [Anterior Bilateral Throughout] Blood Pressure 93/63 90/59 90/59 O2 Sat by Pulse 100 100 100 Oximetry 08/23/16 08/23/16 08/23/16 01:21 01:31 01:41 Temperature Pulse Rate 114 H 121 H 100 H Pulse Rate [ Anterior Bilateral Throughout] Pulse Rate [ From Monitor] Respiratory 36 H 31 H 33 H Rate Respiratory Rate [Anterior Bilateral Throughout] Blood Pressure 90/59 111/73 111/73 O2 Sat by Pulse 100 100 100 Oximetry 08/23/16 08/23/16 08/23/16 01:51 02:00 02:08 Temperature Pulse Rate 113 H 111 H Pulse Rate [ 110 H Anterior Bilateral Throughout] Pulse Rate [ From Monitor] Respiratory 24 28 H Rate Respiratory 31 H Rate [Anterior Bilateral Throughout] Blood Pressure 111/73 91/59 O2 Sat by Pulse 100 100 Oximetry 08/23/16 08/23/16 08/23/16 02:11 02:21 02:26 Temperature Pulse Rate 112 H 113 H Pulse Rate [ 102 H Anterior Bilateral Throughout] Pulse Rate [ From Monitor] Respiratory 35 H 26 H Rate Respiratory 28 H Rate [Anterior Bilateral Throughout] Blood Pressure 91/59 91/59 O2 Sat by Pulse 100 100 Oximetry 08/23/16 08/23/16 08/23/16 02:30 02:41 02:51 Temperature Pulse Rate 109 H 118 H 110 H Pulse Rate [ Anterior Bilateral Throughout] Pulse Rate [ From Monitor] Respiratory 29 H 23 30 H Rate Respiratory Rate [Anterior Bilateral Throughout] Blood Pressure 90/59 90/59 90/59 O2 Sat by Pulse 100 100 100 Oximetry 08/23/16 08/23/16 08/23/16 03:00 03:11 03:21 Temperature Pulse Rate 112 H 116 H 108 H Pulse Rate [ Anterior Bilateral Throughout] Pulse Rate [ From Monitor] Respiratory 31 H 29 H 32 H Rate Respiratory Rate [Anterior Bilateral Throughout] Blood Pressure 85/59 85/59 85/59 O2 Sat by Pulse 100 100 100 Oximetry 08/23/16 08/23/16 08/23/16 03:30 03:41 03:51 Temperature Pulse Rate 122 H 110 H 112 H Pulse Rate [ Anterior Bilateral Throughout] Pulse Rate [ From Monitor] Respiratory 32 H 29 H 34 H Rate Respiratory Rate [Anterior Bilateral Throughout] Blood Pressure 107/80 107/80 107/80 O2 Sat by Pulse 100 100 100 Oximetry 08/23/16 08/23/16 08/23/16 04:00 04:11 04:21 Temperature Pulse Rate 113 H 107 H 102 H Pulse Rate [ Anterior Bilateral Throughout] Pulse Rate [ From Monitor] Respiratory 36 H 31 H 29 H Rate Respiratory Rate [Anterior Bilateral Throughout] Blood Pressure 105/70 105/70 105/70 O2 Sat by Pulse 100 100 100 Oximetry 08/23/16 08/23/16 08/23/16 04:26 04:30 04:41 Temperature 99.6 F Pulse Rate 116 H 109 H Pulse Rate [ Anterior Bilateral Throughout] Pulse Rate [ From Monitor] Respiratory 35 H 28 H Rate Respiratory Rate [Anterior Bilateral Throughout] Blood Pressure 105/74 105/74 O2 Sat by Pulse 100 100 Oximetry 08/23/16 08/23/16 08/23/16 04:51 05:00 05:11 Temperature Pulse Rate 107 H 109 H 107 H Pulse Rate [ Anterior Bilateral Throughout] Pulse Rate [ From Monitor] Respiratory 30 H 28 H 31 H Rate Respiratory Rate [Anterior Bilateral Throughout] Blood Pressure 105/74 92/60 92/60 O2 Sat by Pulse 100 100 100 Oximetry 08/23/16 08/23/16 08/23/16 05:20 05:30 05:41 Temperature Pulse Rate 108 H 111 H 110 H Pulse Rate [ Anterior Bilateral Throughout] Pulse Rate [ From Monitor] Respiratory 25 H 36 H 44 H Rate Respiratory Rate [Anterior Bilateral Throughout] Blood Pressure 92/60 92/65 92/60 O2 Sat by Pulse 100 100 100 Oximetry 08/23/16 08/23/16 08/23/16 05:51 06:00 06:11 Temperature Pulse Rate 116 H 112 H 109 H Pulse Rate [ Anterior Bilateral Throughout] Pulse Rate [ From Monitor] Respiratory 42 H 43 H 34 H Rate Respiratory Rate [Anterior Bilateral Throughout] Blood Pressure 92/60 97/68 92/65 O2 Sat by Pulse 100 100 100 Oximetry 08/23/16 08/23/16 08/23/16 06:21 06:30 06:41 Temperature Pulse Rate 106 H 108 H 108 H Pulse Rate [ Anterior Bilateral Throughout] Pulse Rate [ From Monitor] Respiratory 20 30 H 37 H Rate Respiratory Rate [Anterior Bilateral Throughout] Blood Pressure 92/65 103/64 97/68 O2 Sat by Pulse 100 100 100 Oximetry 08/23/16 08/23/16 08/23/16 06:51 07:00 07:11 Temperature Pulse Rate 108 H 109 H 111 H Pulse Rate [ Anterior Bilateral Throughout] Pulse Rate [ From Monitor] Respiratory 27 H 30 H 34 H Rate Respiratory Rate [Anterior Bilateral Throughout] Blood Pressure 97/68 95/67 95/67 O2 Sat by Pulse 100 100 100 Oximetry 08/23/16 08/23/16 08/23/16 07:21 07:30 07:41 Temperature Pulse Rate 111 H 112 H 109 H Pulse Rate [ Anterior Bilateral Throughout] Pulse Rate [ From Monitor] Respiratory 39 H 33 H 35 H Rate Respiratory Rate [Anterior Bilateral Throughout] Blood Pressure 95/67 102/72 102/72 O2 Sat by Pulse 100 100 100 Oximetry 08/23/16 08/23/16 08/23/16 07:51 08:00 08:11 Temperature 100.6 F H Pulse Rate 110 H 111 H 112 H Pulse Rate [ Anterior Bilateral Throughout] Pulse Rate [ From Monitor] Respiratory 26 H 35 H 27 H Rate Respiratory Rate [Anterior Bilateral Throughout] Blood Pressure 102/72 92/64 92/64 O2 Sat by Pulse 100 100 100 Oximetry 08/23/16 08/23/16 08:21 08:30 Temperature Pulse Rate 113 H 112 H Pulse Rate [ Anterior Bilateral Throughout] Pulse Rate [ From Monitor] Respiratory 41 H 24 Rate Respiratory Rate [Anterior Bilateral Throughout] Blood Pressure 92/64 91/62 O2 Sat by Pulse 100 100 Oximetry Constitutional: alert, other Eyes: non-icteric ENT: oropharynx moist Neck: supple, JVD Ascultation: Bilateral: rales (bilateral basilar some rhonchi) Percussion: Bilateral: not dull Cardiovascular: regular rate and rhythm, other (tachycardic) Gastrointestinal: normoactive bowel sounds Extremities: no edema, pulses normal Neurologic: normal mental status, pupils equal and round, CN II-XII normal Psychiatric: mood appropriate CBC and BMP: 08/23/16 04:31 08/23/16 04:31 ABG, PT/INR, D-dimer: ABG POC ABG pH 7.507 (7.35-7.45) H 08/19/16 10:19 POC ABG pCO2 21.9 (35-45) L 08/19/16 10:19 POC ABG pO2 85 (80-105) 08/19/16 10:19 POC ABG HCO3 17.3 08/19/16 10:19 POC ABG Total CO2 18 08/19/16 10:19 POC ABG O2 Sat 98 08/19/16 10:19 PT/INR, D-dimer PT 20.6 Sec. (12.2-14.9) H 08/23/16 04:31 INR 1.77 (0.87-1.13) H 08/23/16 04:31 Abnormal lab findings: Abnormal Labs 08/16/16 08/16/16 08/16/16 16:26 16:26 20:49 WBC RBC 2.84 L Hgb 8.3 L Hct 24.7 L MCHC Lymph % (Auto) 8.3 L [place] % (Auto) 7.8 H Lymph # 0.7 L Seg Neutrophils % 83.8 H PT INR APTT Heparin Anti-Xa Level POC ABG pH POC ABG pCO2 Sodium 122 L Potassium Chloride 87.8 L Carbon Dioxide 19 L BUN Creatinine Glucose 126 H POC Glucose Calcium 7.7 L Magnesium AST Alkaline Phosphatase CK-MB (CK-2) CK-MB (CK-2) Rel Index Troponin T 0.695 H* 0.703 H* NT-Pro-B Natriuret Pep Total Protein Albumin Triglycerides 184 H HDL Cholesterol 12 L Ur Specific [place] Urine Creatinine Urine Chloride 08/16/16 08/17/16 08/17/16 20:50 04:58 08:42 WBC RBC Hgb Hct MCHC Lymph % (Auto) [place] % (Auto) Lymph # Seg Neutrophils % PT INR APTT Heparin Anti-Xa Level POC ABG pH POC ABG pCO2 Sodium 125 L 128 L Potassium Chloride 89.9 L 92.5 L Carbon Dioxide 18 L 19 L BUN 21 H Creatinine Glucose 108 H 105 H POC Glucose Calcium 7.7 L 7.5 L Magnesium AST Alkaline Phosphatase CK-MB (CK-2) 6.9 H CK-MB (CK-2) Rel Index 4.7 H Troponin T 0.590 H* NT-Pro-B Natriuret Pep Total Protein Albumin Triglycerides HDL Cholesterol Ur Specific [place] Urine Creatinine Urine Chloride 08/17/16 08/17/16 08/17/16 12:24 12:24 16:06 WBC RBC Hgb Hct MCHC Lymph % (Auto) [place] % (Auto) Lymph # Seg Neutrophils % PT INR APTT Heparin Anti-Xa Level POC ABG pH POC ABG pCO2 Sodium 127 L Potassium Chloride 91.9 L Carbon Dioxide 16 L BUN 28 H Creatinine Glucose POC Glucose Calcium 7.4 L Magnesium AST Alkaline Phosphatase CK-MB (CK-2) CK-MB (CK-2) Rel Index Troponin T NT-Pro-B Natriuret Pep Total Protein Albumin Triglycerides HDL Cholesterol Ur Specific [place] 1.034 H Urine Creatinine 220.8 H Urine Chloride 10.0 L 08/17/16 08/18/16 08/18/16 23:50 04:12 05:29 WBC RBC Hgb Hct MCHC Lymph % (Auto) [place] % (Auto) Lymph # Seg Neutrophils % PT INR APTT Heparin Anti-Xa Level POC ABG pH POC ABG pCO2 Sodium 129 L Potassium Chloride 96.5 L Carbon Dioxide 15 L BUN 43 H Creatinine 1.7 H Glucose 115 H POC Glucose 126 H 121 H Calcium 7.4 L Magnesium AST Alkaline Phosphatase CK-MB (CK-2) CK-MB (CK-2) Rel Index Troponin T NT-Pro-B Natriuret Pep Total Protein Albumin Triglycerides HDL Cholesterol Ur Specific [place] Urine Creatinine Urine Chloride 08/18/16 08/18/16 08/18/16 08:33 12:00 13:18 WBC RBC Hgb Hct MCHC Lymph % (Auto) [place] % (Auto) Lymph # Seg Neutrophils % PT 16.3 H INR 1.32 H APTT 185.1 H* Heparin Anti-Xa Level POC ABG pH POC ABG pCO2 Sodium 128 L Potassium 5.2 H Chloride 96.0 L Carbon Dioxide 16 L BUN 44 H Creatinine 1.7 H Glucose 109 H POC Glucose 125 H Calcium 7.3 L Magnesium AST 152 H Alkaline Phosphatase 175 H CK-MB (CK-2) CK-MB (CK-2) Rel Index Troponin T NT-Pro-B Natriuret Pep Total Protein 5.6 L Albumin 1.9 L Triglycerides HDL Cholesterol Ur Specific [place] Urine Creatinine Urine Chloride 08/18/16 08/18/16 08/18/16 15:42 15:42 20:38 WBC RBC Hgb Hct MCHC Lymph % (Auto) [place] % (Auto) Lymph # Seg Neutrophils % PT INR APTT 45.2 H Heparin Anti-Xa Level < 0.10 L POC ABG pH POC ABG pCO2 Sodium 128 L Potassium Chloride 95.8 L Carbon Dioxide 16 L BUN 49 H Creatinine 1.7 H Glucose 137 H POC Glucose Calcium 7.3 L Magnesium AST Alkaline Phosphatase CK-MB (CK-2) CK-MB (CK-2) Rel Index Troponin T NT-Pro-B Natriuret Pep Total Protein Albumin Triglycerides HDL Cholesterol Ur Specific [place] Urine Creatinine Urine Chloride 08/19/16 08/19/16 08/19/16 06:20 06:20 06:20 WBC RBC Hgb Hct MCHC Lymph % (Auto) [place] % (Auto) Lymph # Seg Neutrophils % PT INR APTT Heparin Anti-Xa Level 0.12 L POC ABG pH POC ABG pCO2 Sodium 128 L Potassium Chloride 95.9 L Carbon Dioxide 15 L BUN 49 H Creatinine Glucose 116 H POC Glucose Calcium 7.4 L Magnesium AST Alkaline Phosphatase CK-MB (CK-2) CK-MB (CK-2) Rel Index Troponin T NT-Pro-B Natriuret Pep 6736 H Total Protein Albumin Triglycerides HDL Cholesterol Ur Specific [place] Urine Creatinine Urine Chloride 08/19/16 08/19/16 08/19/16 10:04 10:19 11:33 WBC RBC Hgb Hct MCHC Lymph % (Auto) [place] % (Auto) Lymph # Seg Neutrophils % PT INR APTT Heparin Anti-Xa Level POC ABG pH 7.507 H POC ABG pCO2 21.9 L Sodium Potassium Chloride Carbon Dioxide BUN Creatinine Glucose POC Glucose 108 H 135 H Calcium Magnesium AST Alkaline Phosphatase CK-MB (CK-2) CK-MB (CK-2) Rel Index Troponin T NT-Pro-B Natriuret Pep Total Protein Albumin Triglycerides HDL Cholesterol Ur Specific [place] Urine Creatinine Urine Chloride 08/19/16 08/19/16 08/19/16 14:31 17:47 17:56 WBC RBC Hgb Hct MCHC Lymph % (Auto) [place] % (Auto) Lymph # Seg Neutrophils % PT INR APTT Heparin Anti-Xa Level > 1.90 H POC ABG pH POC ABG pCO2 Sodium 120 L D Potassium Chloride 89.6 L Carbon Dioxide 14 L BUN 37 H Creatinine Glucose POC Glucose 110 H Calcium 6.0 L D Magnesium AST Alkaline Phosphatase CK-MB (CK-2) CK-MB (CK-2) Rel Index Troponin T NT-Pro-B Natriuret Pep Total Protein Albumin Triglycerides HDL Cholesterol Ur Specific [place] Urine Creatinine Urine Chloride 08/20/16 08/20/16 08/20/16 00:21 05:19 05:19 WBC 22.7 H RBC 2.92 L Hgb 8.2 L Hct 26.2 L MCHC 31 L Lymph % (Auto) [place] % (Auto) Lymph # Seg Neutrophils % PT 15.1 H INR 1.20 H APTT Heparin Anti-Xa Level < 0.10 L POC ABG pH POC ABG pCO2 Sodium Potassium Chloride Carbon Dioxide BUN Creatinine Glucose POC Glucose Calcium Magnesium AST Alkaline Phosphatase CK-MB (CK-2) CK-MB (CK-2) Rel Index Troponin T NT-Pro-B Natriuret Pep Total Protein Albumin Triglycerides HDL Cholesterol Ur Specific [place] Urine Creatinine Urine Chloride 08/20/16 08/20/16 08/20/16 05:19 12:34 17:29 WBC RBC Hgb Hct MCHC Lymph % (Auto) [place] % (Auto) Lymph # Seg Neutrophils % PT INR APTT Heparin Anti-Xa Level POC ABG pH POC ABG pCO2 Sodium 132 L D Potassium Chloride Carbon Dioxide 17 L BUN 39 H Creatinine Glucose 131 H POC Glucose 124 H 120 H Calcium 7.8 L D Magnesium 2.6 H AST Alkaline Phosphatase CK-MB (CK-2) CK-MB (CK-2) Rel Index Troponin T NT-Pro-B Natriuret Pep Total Protein Albumin Triglycerides HDL Cholesterol Ur Specific [place] Urine Creatinine Urine Chloride 08/20/16 08/21/16 08/21/16 20:06 07:18 07:18 WBC RBC Hgb Hct MCHC Lymph % (Auto) [place] % (Auto) Lymph # Seg Neutrophils % PT 16.7 H INR 1.36 H APTT Heparin Anti-Xa Level POC ABG pH POC ABG pCO2 Sodium 129 L 132 L Potassium Chloride 95.7 L Carbon Dioxide 18 L 17 L BUN 34 H 32 H Creatinine Glucose 121 H 123 H POC Glucose Calcium 7.9 L 7.7 L Magnesium AST Alkaline Phosphatase CK-MB (CK-2) CK-MB (CK-2) Rel Index Troponin T NT-Pro-B Natriuret Pep Total Protein Albumin Triglycerides HDL Cholesterol Ur Specific [place] Urine Creatinine Urine Chloride 08/21/16 08/21/16 08/21/16 07:18 09:33 16:05 WBC 18.3 H RBC 2.54 L Hgb 7.2 L Hct 22.2 L MCHC Lymph % (Auto) [place] % (Auto) Lymph # Seg Neutrophils % PT INR APTT Heparin Anti-Xa Level 0.15 L POC ABG pH POC ABG pCO2 Sodium 131 L Potassium 5.3 H D Chloride Carbon Dioxide 14 L BUN 33 H Creatinine Glucose 139 H POC Glucose Calcium 8.2 L Magnesium AST Alkaline Phosphatase CK-MB (CK-2) CK-MB (CK-2) Rel Index Troponin T NT-Pro-B Natriuret Pep Total Protein Albumin Triglycerides HDL Cholesterol Ur Specific [place] Urine Creatinine Urine Chloride 08/21/16 08/22/16 08/22/16 20:30 04:29 04:29 WBC RBC Hgb 7.8 L Hct 24.7 L MCHC Lymph % (Auto) [place] % (Auto) Lymph # Seg Neutrophils % PT 17.8 H INR 1.47 H APTT Heparin Anti-Xa Level < 0.10 L 0.12 L POC ABG pH POC ABG pCO2 Sodium Potassium Chloride Carbon Dioxide BUN Creatinine Glucose POC Glucose Calcium Magnesium AST Alkaline Phosphatase CK-MB (CK-2) CK-MB (CK-2) Rel Index Troponin T NT-Pro-B Natriuret Pep Total Protein Albumin Triglycerides HDL Cholesterol Ur Specific [place] Urine Creatinine Urine Chloride 08/22/16 08/22/16 08/22/16 04:29 13:37 17:07 WBC RBC Hgb Hct MCHC Lymph % (Auto) [place] % (Auto) Lymph # Seg Neutrophils % PT INR APTT Heparin Anti-Xa Level 0.22 L POC ABG pH POC ABG pCO2 Sodium 133 L 120 L D Potassium Chloride 88.7 L Carbon Dioxide 18 L 13 L BUN 34 H 30 H Creatinine Glucose 136 H 292 H POC Glucose Calcium 8.3 L 6.0 L D Magnesium AST Alkaline Phosphatase CK-MB (CK-2) CK-MB (CK-2) Rel Index Troponin T NT-Pro-B Natriuret Pep Total Protein Albumin Triglycerides HDL Cholesterol Ur Specific [place] Urine Creatinine Urine Chloride 08/22/16 08/22/16 08/23/16 21:17 21:17 04:31 WBC RBC Hgb Hct MCHC Lymph % (Auto) [place] % (Auto) Lymph # Seg Neutrophils % PT 20.6 H INR 1.77 H APTT Heparin Anti-Xa Level > 2.00 H POC ABG pH POC ABG pCO2 Sodium 116 L* Potassium Chloride 85.6 L Carbon Dioxide 14 L BUN 29 H Creatinine Glucose 338 H POC Glucose Calcium 5.6 L* Magnesium AST Alkaline Phosphatase CK-MB (CK-2) CK-MB (CK-2) Rel Index Troponin T NT-Pro-B Natriuret Pep Total Protein Albumin Triglycerides HDL Cholesterol Ur Specific [place] Urine Creatinine Urine Chloride 08/23/16 08/23/16 04:31 04:31 WBC 15.5 H RBC 2.79 L Hgb 7.9 L Hct 24.5 L MCHC Lymph % (Auto) [place] % (Auto) Lymph # Seg Neutrophils % PT INR APTT Heparin Anti-Xa Level POC ABG pH POC ABG pCO2 Sodium 133 L D Potassium Chloride 97.5 L Carbon Dioxide 16 L BUN 43 H Creatinine Glucose 157 H POC Glucose Calcium 8.1 L D Magnesium AST Alkaline Phosphatase CK-MB (CK-2) CK-MB (CK-2) Rel Index Troponin T NT-Pro-B Natriuret Pep Total Protein Albumin Triglycerides HDL Cholesterol Ur Specific [place] Urine Creatinine Urine Chloride
[2016-08-23] MEDS: THERAGRAN Tab PO SCH (09:36)
[2016-08-23] MEDS: FOLVITE PO SCH (09:36)
[2016-08-23] MEDS: TYLENOL PO PRN ×2 (09:37→16:56)
[2016-08-23] MEDS: VITAMIN B-1 PO SCH (09:37)
[2016-08-23 09:58] LABS: Bacteria,Urine 1+ /HPF (Negative); Bilirubin,Urine NEG (Negative); Blood,Urine NEG (Negative); Ketones,Urine NEG (Negative); Leukocyte Esterase,Urine NEG (Negative); Mucus,Urine FEW /HPF; Nitrite,Urine NEG (Negative); Protein,Urine <15 mg/dL mg/dL (Negative); RBC,Urine < 1.0 /HPF (0.0-6.0)
[2016-08-23] MEDS ORDERED: SODIUM BICARBONATE PO SCH (10:00)
--- NOTE | 2016-08-23 10:20 | Progress Note ---
Assessment and Plan Assessment and plan: Acute encephalopathy with altered mental status. Improving. May be secondary to alcohol withdrawal, No localizing signs. He is awake, alert, CT head - no stroke. maxillary sinus disease. Continue [facility] protocol. neurochecks. Will obtain MRI Brain. Acute respiratory failure due to pulmonary edema due to cardiomyopathy. Transferred to ICU, supplemental Oxygen, Discussed with ship rigger apprentice. Acute systolic heart failure. Continue Dobutamine drip. Lasix IV per cardiology. Coreg low dose. Cardiogenic shock. On dobutamine drip. Blood pressure still low. Alcohol withdrawal syndrome. Cont CIAK protocol. Ativan iv prn. He said he drinks 6 pack beer every other day, last drink few days ago. ST elevation on EKG. He was taken to cardiac analytical lab technician on 08/16/16, but had normal coronaries, etiology likely Takotsubo cardiomyopathy. Takotsubo cardiomyopathy. Cardiology following. Hyponatremia. Improving. Nephrology following. Hyperkalemia. Resolved. Hypotension, improved. LV thrombus, pedunculated. Continue Heparin drip and Coumadin. Goal INR 2-3. Full code status History Interval history: No new issues overnight. Hospitalist Physical - Constitutional Vitals: Temp Pulse Resp BP Pulse Ox 100.6 F H 112 H 24 91/62 100 08/23/16 07:51 08/23/16 08:30 08/23/16 08:30 08/23/16 08:30 08/23/16 08:30 General appearance: Present: well-nourished - EENT Eyes: Present: PERRL, EOM intact ENT: hearing intact, clear oral mucosa, dentition normal - Neck Neck: Present: supple, normal ROM - Respiratory Respiratory effort: normal Respiratory: bilateral: diminished, rhonchi - Cardiovascular Rhythm: regular Heart Sounds: Present: S1 & S2. Absent: gallop, rub - Extremities Extremities: no ischemia, No edema, Full ROM - Abdominal General gastrointestinal: soft, non-tender, non-distended, normal bowel sounds - Integumentary Integumentary: Present: clear, warm, dry - Neurologic Neurologic: CNII-XII intact, moves all extremities Results - Labs CBC & Chem 7: 08/23/16 04:31 08/23/16 04:31 Labs: Laboratory Last Values WBC 15.5 K/mm3 (4.5-11.0) H 08/23/16 04:31 RBC 2.79 M/mm3 (3.65-5.03) L 08/23/16 04:31 Hgb 7.9 gm/dl (11.8-15.2) L 08/23/16 04:31 Hct 24.5 % (35.5-45.6) L 08/23/16 04:31 MCV 88 fl (84-94) 08/23/16 04:31 MCH 28 pg (28-32) 08/23/16 04:31 MCHC 32 % (32-34) 08/23/16 04:31 RDW 14.6 % (13.2-15.2) 08/23/16 04:31 Plt Count 329 K/mm3 (140-440) 08/23/16 04:31 Lymph % (Auto) 8.3 % (13.4-35.0) L 08/16/16 16:26 [place] % (Auto) 7.8 % (0.0-7.3) H 08/16/16 16:26 Eos % (Auto) 0.0 % (0.0-4.3) 08/16/16 16:26 Baso % (Auto) 0.1 % (0.0-1.8) 08/16/16 16:26 Lymph # 0.7 K/mm3 (1.2-5.4) L 08/16/16 16:26 [place] # 0.6 K/mm3 (0.0-0.8) 08/16/16 16:26 Eos # 0.0 K/mm3 (0.0-0.4) 08/16/16 16:26 Baso # 0.0 K/mm3 (0.0-0.1) 08/16/16 16:26 Seg Neutrophils % 83.8 % (40.0-70.0) H 08/16/16 16:26 Seg Neutrophils # 7.0 K/mm3 (1.8-7.7) 08/16/16 16:26 PT 20.6 Sec. (12.2-14.9) H 08/23/16 04:31 INR 1.77 (0.87-1.13) H 08/23/16 04:31 APTT 45.2 Sec. (24.2-36.6) H 08/18/16 15:42 Heparin Anti-Xa Level < 0.10 U.I./ml (0.3-0.7) L 08/23/16 08:23 POC ABG pH 7.507 (7.35-7.45) H 08/19/16 10:19 POC ABG pCO2 21.9 (35-45) L 08/19/16 10:19 POC ABG pO2 85 (80-105) 08/19/16 10:19 POC ABG HCO3 17.3 08/19/16 10:19 POC ABG Total CO2 18 08/19/16 10:19 POC ABG O2 Sat 98 08/19/16 10:19 POC ABG Base Excess -6 08/19/16 10:19 FiO2 35 % 08/19/16 10:19 Sodium 133 mmol/L (137-145) L D 08/23/16 04:31 Potassium 4.7 mmol/L (3.6-5.0) D 08/23/16 04:31 Chloride 97.5 mmol/L (98-107) L 08/23/16 04:31 Carbon Dioxide 16 mmol/L (22-30) L 08/23/16 04:31 Anion Gap 24 mmol/L 08/23/16 04:31 BUN 43 mg/dL (9-20) H 08/23/16 04:31 Creatinine 1.4 mg/dL (0.8-1.5) 08/23/16 04:31 Estimated GFR > 60 ml/min 08/23/16 04:31 BUN/Creatinine Ratio 30.71 % 08/23/16 04:31 Glucose 157 mg/dL (75-100) H 08/23/16 04:31 POC Glucose 120 (70-105) H 08/20/16 17:29 Calcium 8.1 mg/dL (8.4-10.2) L D 08/23/16 04:31 Phosphorus 4.1 mg/dL (2.5-4.5) 08/20/16 05:19 Magnesium 2.6 mg/dL (1.7-2.3) H 08/20/16 05:19 Total Bilirubin 1.1 mg/dL (0.1-1.2) 08/18/16 08:33 AST 152 units/L (5-40) H 08/18/16 08:33 ALT 38 units/L (7-56) 08/18/16 08:33 Alkaline Phosphatase 175 units/L (35-129) H 08/18/16 08:33 Total Creatine Kinase 144 units/L (55-170) 08/17/16 08:42 CK-MB (CK-2) 6.9 ng/mL (0.0-4.0) H 08/17/16 08:42 CK-MB (CK-2) Rel Index 4.7 (0-4) H 08/17/16 08:42 Troponin T 0.590 ng/mL (0.00-0.029) H* 08/17/16 08:42 NT-Pro-B Natriuret Pep 6736 pg/mL (0-900) H 08/19/16 06:20 Total Protein 5.6 g/dL (6.3-8.2) L 08/18/16 08:33 Albumin 1.9 g/dL (3.9-5) L 08/18/16 08:33 Albumin/Globulin Ratio 0.5 % 08/18/16 08:33 Triglycerides 184 mg/dL (2-149) H 08/16/16 16:26 Cholesterol 130 mg/dL (50-199) 08/16/16 16:26 LDL Cholesterol Direct 77 mg/dL (50-130) 08/16/16 16:26 HDL Cholesterol 12 mg/dL (40-59) L 08/16/16 16:26 Cholesterol/HDL Ratio 10.83 % 08/16/16 16:26 Urine Color Mami (Yellow) 08/23/16 Unknown Urine Turbidity Clear (Clear) 08/23/16 Unknown Urine pH 5.0 (5.0-7.0) 08/23/16 Unknown Ur Specific [place] 1.016 (1.003-1.030) 08/23/16 Unknown Urine Protein <15 mg/dl mg/dL (Negative) 08/23/16 Unknown Urine Glucose (UA) Neg mg/dL (Negative) 08/23/16 Unknown Urine Ketones Neg mg/dL (Negative) 08/23/16 Unknown Urine Blood Neg (Negative) 08/23/16 Unknown Urine Nitrite Neg (Negative) 08/23/16 Unknown Urine Bilirubin Neg (Negative) 08/23/16 Unknown Urine Urobilinogen 2.0 mg/dL (<2.0) 08/23/16 Unknown Ur Leukocyte Esterase Neg (Negative) 08/23/16 Unknown Urine WBC (Auto) 1.0 /HPF (0.0-6.0) 08/23/16 Unknown Urine RBC (Auto) < 1.0 /HPF (0.0-6.0) 08/23/16 Unknown U Epithel Cells (Auto) < 1.0 /HPF (0-13.0) 08/23/16 Unknown Urine Bacteria (Auto) 1+ /HPF (Negative) 08/23/16 Unknown Hyaline Casts 1 /LPF 08/23/16 Unknown Urine Mucus Few /HPF 08/23/16 Unknown Urine Osmolality 552 Mosm/kg 08/17/16 12:24 Urine Creatinine 220.8 mg/dL (0.1-20.0) H 08/17/16 12:24 Urine Sodium 10 mEq/L 08/17/16 12:24 Urine Chloride 10.0 mEq/L (110-250) L 08/17/16 12:24 Urine Opiates Screen Presumptive negative 08/16/16 21:00 Urine Methadone Screen Presumptive negative 08/16/16 21:00 Ur Barbiturates Screen Presumptive negative 08/16/16 21:00 Ur Phencyclidine Scrn Presumptive negative 08/16/16 21:00 Ur Amphetamines Screen Presumptive negative 08/16/16 21:00 U Benzodiazepines Scrn Presumptive negative 08/16/16 21:00 Urine Cocaine Screen Presumptive negative 08/16/16 21:00 U Marijuana (THC) Screen Presumptive negative 08/16/16 21:00 Drugs of Abuse Note Disclamer 08/16/16 21:00
[2016-08-23 11:10] LABS: Fractional Sodium Excretion 0.1
[2016-08-23] MEDS: COREG PO SCH (11:49)
--- NOTE | 2016-08-23 12:02 | Progress Note ---
Assessment and Plan Assessment: AMS / encephalopathy - head CT with no acute intracranial abnormality. Abnormal EKG / ACS ruled out - pt underwent coronary angiography on 08/16/2016 which revealed patent coronaries, EF 15%. Elevated troponins Takotsubo CMP v. alcohol induced CMP Cardiogenic shock / Acute systolic HF Cardiac thrombus - pendunculated LV thrombus; likely chronic; on heparin gtt with PO coumadin. Sinus tachycardia ? syncopal episode 1 month ago HTN Hyponatremia - improving. ARF - nephrology following. Anemia ETOH abuse / ETOH withdrawal - UDS negative; cessation encouraged; CIWA protocol. Plan: Cont dobutamine gtt @ 5mcg/kg/min. Do not titrate. Cont heparin gtt and PO coumadin until therapeutic INR of 2-3 is achieved. Cont low dose coreg as tolerated. Hold for HR <60 and MAP <60. No ACEI/ARB at this time in setting of ARF and hypotension. Prognosis is guarded. Hospice may be a reasonable option at this point. Will attempt to review assessment and plan and discuss goals of care with pt's mother this afternoon - she is currently en route to hospital from airport per pt's roommate. The patient has been seen in conjunction with Dr. Vincent who agrees with the assessment and plan of care. Subjective Date of service: 08/23/16 Principal diagnosis: cardiomyopathy with congestive failure Interval history: Pt resting in bed, withdrawn, tachypnea noted, on BIPAP, BPs borderline hypotensive, in ST on tele with HR 100s - 110s. Dobutamine and heparin gtt infusing. Objective Last Vital Signs Temp 100.6 F H 08/23/16 07:51 Pulse 122 H 08/23/16 11:49 Resp 35 H 08/23/16 10:51 BP 100/71 08/23/16 11:49 Pulse Ox 100 08/23/16 10:51 - Physical Examination General: No Apparent Distress, Other (ill-appearing ) HEENT: Positive: PERRL, Normocephaly, Mucus Membranes Moist Neck: Positive: neck supple, trachea midline Cardiac: Positive: S1/S2, Tachycardia Lungs: Positive: Rales Neuro: Positive: Grossly Intact, Other (withdrawn, opens eyes to commands, follows commands appropriately. ) Abdomen: Positive: Unremarkable, Soft, Active Bowel Sounds. Negative: Tender Skin: Positive: Clear. Negative: Rash, Wound Musculoskeletal: No Fluid Collection, No Pain, Normal Range of Motion Extremities: Present: normal, upper extr. pulses, lower extr. pulses. Absent: edema - Labs and Meds Coagulation 08/23/16 Range/Units 04:31 PT 20.6 H (12.2-14.9) Sec. INR 1.77 H (0.87-1.13) CBC 08/23/16 Range/Units 04:31 WBC 15.5 H (4.5-11.0) K/mm3 RBC 2.79 L (3.65-5.03) M/mm3 Hgb 7.9 L (11.8-15.2) gm/dl Hct 24.5 L (35.5-45.6) % Plt Count 329 (140-440) K/mm3 Comprehensive Metabolic Panel 08/22/16 08/22/16 08/23/16 Range/Units 17:07 21:17 04:31 Sodium 120 L D 116 L* 133 L D (137-145) mmol/L Potassium 3.6 3.7 4.7 D (3.6-5.0) mmol/L Chloride 88.7 L 85.6 L 97.5 L (98-107) mmol/L Carbon Dioxide 13 L 14 L 16 L (22-30) mmol/L BUN 30 H 29 H 43 H (9-20) mg/dL Creatinine 1.0 1.0 1.4 (0.8-1.5) mg/dL Glucose 292 H 338 H 157 H (75-100) mg/dL Calcium 6.0 L D 5.6 L* 8.1 L D (8.4-10.2) mg/dL - Imaging and Cardiology EKG: report reviewed, image reviewed Echo: report reviewed (08/16/2016: severe global hypokinesis, EF 15-20%, mild LHV , mild to moderate MR, moderate TR, minimal pericardial effusion, thrombus in the LV) - Telemetry EKG Rhythm: Sinus Tachycardia - EKG Sinus rhythms and dysrhythmias: sinus rhythm Myocardial infarction: anterior [place] (acute or rec, lateral [place] (acute or rece
--- NOTE | 2016-08-23 15:25 | Event Note ---
Date: 08/23/16 Pt's mother, October, at bedside. Current assessment and plan from cardiac standpoint reviewed with her. She wishes to continue with current medical therapy and full code status. Michelle SOLIS NP / DR. LARES
[2016-08-23] MEDS: COUMADIN PO SCH (16:56)
[2016-08-23] MEDS ORDERED: SODIUM BICARBONATE IV ONE ×2 (20:50→21:06)
[2016-08-23] MEDS ORDERED: ADRENALIN ONE (20:50)
[2016-08-23] MEDS ORDERED: CALCIUM CHLORIDE IV ONE (20:50)
[2016-08-23] MEDS ORDERED: ATROPINE 0.1% (CARDIAC) ONE (20:50)
[2016-08-23] MEDS ORDERED: CORDARONE IV ONE (20:50)
[2016-08-23] MEDS ORDERED: LEVOPHED DRIP 4 MG/NS 250 ML 4 MG/250 ML BAG IV ONE (21:11)
--- NOTE | 2016-08-23 22:49 | Event Note ---
Date: 08/23/16 Responded to [employer] ACLS protocol initiated intubated by Dr Taveras. Inspite of agressive measures patient had cardioresp arrest Time of expiration 21 18 hrs
[2016-08-23 23:25] VITALS: BP 77/55
[2016-08-24] MEDS ORDERED: NACL 0.9% 1000 ML ONE (00:24)
--- NOTE | 2016-08-24 12:03 | Death Summary ---
Summary - Providers Date of service: 08/23/16 Consults: 08/17/16 07:35 Consult to Physician [CONS] Routine Consulting Provider: AMY CORMIER Reason For Exam: abnormal EKG Place consult to:: CUATE SOLIS Notified:: YES 08/17/16 08:00 Consult to Physician [CONS] Routine Consulting Provider: CARIN WILKINSON Reason For Exam: Hyponatremia Place consult to:: [employer] Notified:: YES Phone number called:: [phone] If yes, spoke with:: AURORA Time called:: 08:29 08/18/16 11:02 Consult to Physician [CONS] Routine Consulting Provider: DANNI SANTACRUZ Reason For Exam: Agency Trainer, cardiomyopathy Place consult to:: Dr. Hernandez Notified:: dr hernandez Phone number called:: [phone] Was contact made?: Yes If yes, spoke with:: dr hernandez Time called:: 11:34 Attending: UMBERTO WYATT - summary Date of admission: 08/16/16 17:10 Date of : 08/23/16 Disposition: 55 y/o male was admitted with abnormal EKG and ACS ruled out. Patient underwent coronary angiography all 08/16/2016 which revealed patent coronary arteries but an EF of 15%. Patient was noted to have elevated troponins. Patient remained in the ICU for 2 days but was later transferred out but readmitted with tachypnea. Patient was noted to have renal failure that was felt to be prerenal and was given IV fluid hydration. On the morning of the tachypnea, CXR showed pulmonary edema, mild and cardiomegaly. Given IV lasix x1 and then transferred to ICU for Dobutamine. On echocardiogram, patient was found to have a cardiac pedunculated LV thrombus. Patient was placed on heparin drip and by mouth Coumadin. The cardiomyopathy was felt to be secondary to Takotsubo or alcohol induced. Patient was maintained on dobutamine drip. No JUAN/ARB was given because of the renal insufficiency and hypotension. Patient reportedly had no real significant improvement and was maintained on BiPAP. Patient was seen by cardiology and pulmonary consultation. Patient's prognosis was felt to be extremely poor and hospice was discussed with the mother. The family opted for continued aggressive treatment. Unfortunately, patient coded on 08/23/16 at approximately 20-30 and despite aggressive measures patient at 2118. summary time 32 minutes. - Final diagnosis (1) ARF (acute renal failure) Qualifiers: Acute renal failure type: A Note: Final diagnosis: (2) Acute encephalopathy Note: Final diagnosis: (3) Cardiomyopathy Note: Final diagnosis: (4) ETOH abuse Note: Final diagnosis: (5) HTN (hypertension) Qualifiers: Hypertension type: H Note: Final diagnosis: (6) STEMI (ST elevation myocardial infarction) Qualifiers: Involved coronary artery: unspecified coronary artery Qualified Code(s): I21.3 - ST elevation (STEMI) myocardial infarction of unspecified site Note: Final diagnosis:
== END 2016-08-23 21:18 ==
LOC: OPU 14:00 → ED 14:00 → CC1 17:10 → 4A 08-18 17:41 → CC1 08-19 11:15
PROVIDERS: ADMIT Internal Medicine; ATTEND Hospitalist
PROC: 4A023N7 Measurement of Cardiac Sampling and Pressure, Left Heart, Percutaneous Approach (ICD-10-PCS; principal; 2016-08-16)
PROC: B2111ZZ Fluoroscopy of Multiple Coronary Arteries using Low Osmolar Contrast (ICD-10-PCS; 2016-08-16)
PROC: B2151ZZ Fluoroscopy of Left Heart using Low Osmolar Contrast (ICD-10-PCS; 2016-08-16)
PROC: 4A033R1 Measurement of Arterial Saturation, Peripheral, Percutaneous Approach (ICD-10-PCS; 2016-08-16)
PROC: 5A09457 Assistance with Respiratory Ventilation, 24-96 Consecutive Hours, Continuous Positive Airway Pressure (ICD-10-PCS; 2016-08-16)
DX: I21.3 ST elevation (STEMI) myocardial infarction of unspecified site (principal); G93.40 Encephalopathy, unspecified; J96.00 Acute respiratory failure, unspecified whether with hypoxia or hypercapnia; I50.21 Acute systolic (congestive) heart failure; N17.9 Acute kidney failure, unspecified; F10.239 Alcohol dependence with withdrawal, unspecified; E87.1 Hypo-osmolality and hyponatremia; R57.0 Cardiogenic shock; I95.9 Hypotension, unspecified; D64.9 Anemia, unspecified; E87.5 Hyperkalemia; E88.09 Other disorders of plasma-protein metabolism, not elsewhere classified; I11.0 Hypertensive heart disease with heart failure; I25.10 Atherosclerotic heart disease of native coronary artery without angina pectoris; Z82.49 Family history of ischemic heart disease and other diseases of the circulatory system; I25.2 Old myocardial infarction
CPT/HCPCS: 36415; 36600; 70450; 71010; 80048; 80053; 80061; 80307; 81001; 81003; 82436; 82550; 82553; 82565; 82570; 82803; 82962; 83735; 83880; 83935; 84100; 84295; 84300; 84484; 85014; 85018; 85025; 85027; 85049; 85520; 85610; 85730; 87040; 87086; 87205; 90686; 92950; 93005; 93010; 93306; 93458; 94640; 94660; 94760; C1894; J0171; J0282; J0461; J0583; J1250; J1630; J1644; J1940; J2060; J2250; J3010; J3411; J7030; J7040; Q9967